=== PATIENT | female | born 1935 | race Caucasian/White ===

== ENCOUNTER 2016-07-12 14:51 | Outpatient (RCR) | payer MEDICARE, OTHER ==
--- OUTSIDE RECORDS SUMMARY | 2016-07-12 14:55 | XMS REPORT | Continuity of Care Document ---
Author Author [facility] Organization [facility] Address Unknown Phone Unavailable Care Team Providers Care Radiology Supervisor Name Role Phone Sondra Madsen PCP [phone] Source Comments Some departments are not documenting in the electronic medical record. If you do not see the information that you expected, contact Release of Information in the Health Information Management department at [phone] for further assistance in locating additional records.[facility] Active Allergies and Adverse Reactions Allergen Noted Date Severity Reactions Comments Bactrim 06/23/2014 MUSCLE PAIN Oxycodone 06/23/2014 SEE COMMENTS Severe confusion/out of control Current Medications Prescription Sig. Disp. Refills Start End Date Status Date lisinopril/hydrochlorothi Take by mouth daily. Active azide (ZESTORETIC) 20/25 tablet (INV) letrozole 2.5 mg Take 2.5 mg by mouth Active tablet daily. INVESTIGATIONAL Carboxymethylcellulose Place 1 Drop into or Active Sodium 0.25 % drop around eye(s) as Needed. polyethylene glycol 3350 Take 17 g by mouth daily. 3 Bottle 3 Active (GLYCOLAX; MIRALAX) 17 15 gram/dose powder senna/docusate Take 1 Tab by mouth twice 60 Tab 1 07/25/19 Active (SENOKOT-S) 8.6/50 mg daily. 15 tablet meloxicam (MOBIC) 15 mg Take by mouth daily. Active tablet other medication 1 Dose daily. Teresa's Active Leg Cramps also( vital yacon For weight loss ACAI CASEY EXTRACT PO Take by mouth. Active Nut.Tx.Impaired Dige Take by mouth. Active Fxn-Fiber (VITAL 1.0 SEEMA) 0.04-1 gram-kcal/mL liqd Active Problems Problem Noted Date S/P left mastectomy 07/24/2014 Breast cancer of lower-outer quadrant of left female breast (HCC) 06/18/2014 Overview: DIAGNOSES: 1. Left, multifocal, hormone +, Her2 negative, breast cancer (ER55%, PR56%, HER2 0, Ki-67 22%), dx 05/2014 -- Grade 2 IDC at 4:00 with associated DCIS, posterior (ER99%, PR0%, Her2 0+, Ki-67 1%) -- Grade 2, IDC (CNBx path) and ILC (surg path) at 4:00 with associated LCIS, anterior (ER100%, PR88%, Her2 2+, FISH 1.6, Ki-67 1%) 2. MyRisk negative 3. Hx of colon cancer PROCEDURE: Left mastectomy/SLNB, 07/24/14 HISTORY: Ms. Hansen is a female who presented [facility] on 06/23/2014 at age 78 for evaluation of left breast cancer. Left breast sono-guided biopsy x 2 on 05/27/14 revealed grade 2, hormone +, Her2 negative, IDC at 4:00, 2 cm FTN and 4:00, 5 cm FTN. She was started on Femara during cardiac work-up prior to surgery. She was cleared for surgery and underwent left total mastectomy/SLNB on 07/24/14. Surgical pathology showed a 1.8 cm, grade 2, invasive lobular carcinoma at the anterior biopsy site with LCIS; at the posterior site, a 1 cm, grade 2, IDC was seen with associated grade 1-2 DCIS. The distance between the tumors was 5 mm. There were 5 negative SLNs. BREAST IMAGING: Mammogram: Bilateral screening mammogram 05/15/14 ([place]) revealed two areas of architectural distortion in the outer left breast. Both areas were seen as far back as 2011. Left diagnostic mammogram 05/19/14 ([place]) revealed a 1.4 cm discrete irregular mass in the outer posterior left breast. There was a second mass posterior and lateral to the first that measure 1.3 cm. Ultrasound: Left breast ultrasound 05/19/14 ([place]) revealed a 1 cm mass at 4:00, 2 cm FTN. There was a 1.1 cm mass at 4:00, 5 cm FTN. The left axilla was unremarkable. PET/CT: PET/CT 06/17/14 ([place], [place]) revealed no definitive evidence of metastasis. Heterogenous and mild hypermetabolism in the thoracic spine and right hilum of uncertain significance. Follow up study recommended. REPRODUCTIVE HEALTH: Age at first Menarche: 13 Age at First Live : 19 Age at Menopause: Surgical menopause at 44 due to menorrhagia, took HRT x 5 years : 6 Para: 6 : None PERTINENT PMH: HTN FAMILY HISTORY: Sister with breast cancer in 60s, 2 maternal aunt with breast cancer in 70s, maternal grandmother with breast cancer PHYSICAL EXAM on PRESENTATION: Left - 3-4 cm hematoma at 4:00. Right - No palpable breast masses. No skin, nipple, or areolar change. No supraclavicular or axillary adenopathy. MEDICAL ONCOLOGY: Dr. Mauro Nunes Neoadjuvant therapy: Femara Present Therapy: Letrozole REFERRED BY: Dr. Mauro Nunes Social History Tobacco Use Types Packs/Day Years Used Date Never Smoker Smokeless Tobacco: Never Used Alcohol Use Drinks/Week oz/Week Comments No once a year Last Filed Vital Signs Vital Sign Reading Time Taken Blood Pressure 100/80 05/04/2015 2:08 PM CDT Pulse 84 05/04/2015 2:08 PM CDT Temperature 36.5 C (97.7 F) 05/04/2015 2:08 PM CDT Respiratory Rate 17 05/04/2015 2:08 PM CDT Height 1.575 m (5' 2") 05/04/2015 2:08 PM CDT Weight 108.138 kg (238 lb 6.4 05/04/2015 2:08 PM CDT oz) Body Mass Index 43.59 05/04/2015 2:08 PM CDT Oxygen Saturation 100% 05/04/2015 2:08 PM CDT Plan of Care Health Maintenance Due Date Last Done Comments Physical (Comprehensive) 1944 Exam Pertussis Vaccine 1948 Tetanus Vaccine 1954 Shingles Vaccine 1997 Osteoporosis Screening 2002 Prevnar/Pneumovax (#1) 2002 Influenza Vaccine 03/17/2016 Results from Last 3 Months Not on file
[2016-07-12 16:47] LABS: BASOPHILS % (AUTO) 0 % (0-10); EOSINOPHILS # (AUTO) 0.2 10^3/uL (0.0-0.3); EOSINOPHILS % (AUTO) 2 % (0-10); LYMPHOCYTES # (AUTO) 2.1 X 10^3 (1.0-4.0); LYMPHOCYTES % (AUTO) 22 % (12-44); MEAN CORPUSCULAR HEMOGLOBIN 29 PG (25-34); MEAN CORPUSCULAR HGB CONC 34 G/DL (32-36); MEAN CORPUSCULAR VOLUME 87 FL (80-99); MEAN PLATELET VOLUME 10.1 FL (7.4-10.4); MONOCYTES # (AUTO) 0.7 X 10^3 (0.0-1.0); MONOCYTES % (AUTO) 7 % (0-12); NEUTROPHILS # (AUTO) 6.7 X 10^3 (1.8-7.8); NEUTROPHILS % (AUTO) 69 % (42-75); PLATELET COUNT 288 10^3/uL (130-400); RED BLOOD COUNT 4.85 10^6/uL (4.35-5.85); RED CELL DISTRIBUTION WIDTH 14.3 % (10.0-14.5); WHITE BLOOD COUNT 9.8 10^3/uL (4.3-11.0)
[2016-07-12 17:05] LABS: ALBUMIN 4.4 G/DL (3.2-4.5); BILIRUBIN,TOTAL 0.2 MG/DL (0.1-1.0); CALCIUM 9.3 MG/DL (8.5-10.1); CREATININE SERUM 0.93 MG/DL (0.60-1.30); POTASSIUM 3.9 MMOL/L (3.6-5.0); TOTAL PROTEIN 7.2 G/DL (6.4-8.2)
== END 2016-10-10 | disposition home or self-care (01) ==
LOC: ONC 14:51
PROVIDERS: ATTEND Internal Medicine Hematology & Oncology
DX: C50.512 Malignant neoplasm of lower-outer quadrant of left female breast (principal); I89.0 Lymphedema, not elsewhere classified; R42 Dizziness and giddiness; R41.82 Altered mental status, unspecified; R29.898 Other symptoms and signs involving the musculoskeletal system; Z17.0 Estrogen receptor positive status [ER+]; Z79.811 Long term (current) use of aromatase inhibitors; Z90.12 Acquired absence of left breast and nipple; Z79.899 Other long term (current) drug therapy
CPT/HCPCS: 36415; 80053; 85025; 99213

== ENCOUNTER → 2016-08-09 | Outpatient (CLI) | payer MEDICARE, OTHER ==
--- OUTSIDE RECORDS SUMMARY | 2016-08-09 11:22 | XMS REPORT | Continuity of Care Document ---
Author Author [facility] Organization [facility] Address Unknown Phone Unavailable Care Team Providers Care Health Services Rn Name Role Phone Sondra Madsen PCP [phone] Source Comments Some departments are not documenting in the electronic medical record. If you do not see the information that you expected, contact Release of Information in the Health Information Management department at [phone] for further assistance in locating additional records.[facility] Active Allergies and Adverse Reactions Allergen Noted [...] BREAST IMAGING: Mammogram: Bilateral screening mammogram 05/15/14 ([place]) revealed two areas of architectural distortion in the outer left breast. Both areas were seen as far back as 2011. Left diagnostic mammogram 05/19/14 ([place]) revealed a 1.4 cm discrete irregular mass in the outer posterior left breast. There was a second mass posterior and lateral to the first that measure 1.3 cm. Ultrasound: Left breast ultrasound 05/19/14 ([place]) revealed a 1 cm mass at 4:00, 2 cm FTN. There was a 1.1 cm mass at 4:00, 5 cm FTN. The left axilla was unremarkable. PET/CT: PET/CT 06/17/14 ([place], [place]) revealed no definitive evidence of metastasis. [...]
== END ==
LOC: FS 11:19
PROVIDERS: ATTEND Internal Medicine Hematology & Oncology
DX: C50.512 Malignant neoplasm of lower-outer quadrant of left female breast (principal); I89.0 Lymphedema, not elsewhere classified; R42 Dizziness and giddiness; R41.82 Altered mental status, unspecified; R29.898 Other symptoms and signs involving the musculoskeletal system; Z17.0 Estrogen receptor positive status [ER+]; Z79.811 Long term (current) use of aromatase inhibitors; Z90.12 Acquired absence of left breast and nipple; Z79.899 Other long term (current) drug therapy
CPT/HCPCS: 99213

== ENCOUNTER → 2016-11-08 | Outpatient (CLI) | payer MEDICARE, OTHER | LOC: FS 11:29 | PROVIDERS: ATTEND Internal Medicine Hematology & Oncology | DX: C50.512 Malignant neoplasm of lower-outer quadrant of left female breast (principal); I89.0 Lymphedema, not elsewhere classified; R42 Dizziness and giddiness; R41.82 Altered mental status, unspecified; R29.898 Other symptoms and signs involving the musculoskeletal system; Z17.0 Estrogen receptor positive status [ER+]; Z79.811 Long term (current) use of aromatase inhibitors; Z90.12 Acquired absence of left breast and nipple; Z79.899 Other long term (current) drug therapy | CPT/HCPCS: 99213 ==

== ENCOUNTER → 2017-02-07 | Outpatient (CLI) | payer MEDICARE, OTHER ==
[~2017-02-07] MED LIST: ACET-77 PO; ALPR0.25 PO; ASPI-586 PO; CATHETER FLUSH 10 ML SYR IV PRN; DOCU-143 PO; DOXY100C2 PO; DVL125C PO; ENOX40DI8 SC; FENT1PAT58 TD; FENT1PAT9 TD; FLUC100T6 PO; HALO1TAB PO; HALO5AMP2 IM; HYDR-3816 PO; HYDR12.5 PO; HYDR12.56 PO; IOHEXOL 350 MG/ML 100 ML (OMNIPAQUE 350) VIAL IV ONE; LACT100C2 PO; LACT20SO2 PO; LETR2.5T5 PO; MAGN200T PO; NS 100 ML (IVPB) BAG IV ONE; OMEP20TA7 PO; ONDA4TAB11 PO; ONDN4T PO; POLY17PO6 PO; POTA10TA36 PO; TRAM50TA2 PO
--- NOTE | 2017-02-07 13:29 | Diagnostic Imaging Report ---
PROCEDURE: CT head with and without contrast. TECHNIQUE: Multiple contiguous axial images were obtained through the brain before and after the administration of intravenous contrast. INDICATION: Fall. Confusion. Findings: The unenhanced phase demonstrates no intracranial hemorrhage, edema or mass effect. There is periventricular and deep white matter hypodensities suggestive of chronic microvascular ischemic changes. Mild prominence of the CSF spaces is seen compatible with the age-related slight brain atrophy. There is no extra-axial fluid collection seen. No enhancing mass is noted. The calvarium, the paranasal sinuses and orbits visualized portions appear unremarkable. IMPRESSION: White matter findings are suggestive of chronic microvascular ischemic changes. No enhancing mass. Dictated by: Dictated on workstation # [id number]
--- NOTE | 2017-02-07 16:07 | Diagnostic Imaging Report ---
Whole body bone scan. Technique: After the intravenous administration of 27 mCi of Technetium 99m MDP, whole body delayed phase bone scan images were obtained with lateral views of the head and neck and the chest regions. Indication: Right flank mass. History of breast cancer. Findings: There is moderate increased hypermetabolism seen in the T12 vertebral body. There is mild degenerative related activity seen within the rest of the spine and there is also mild degenerative related activity in other joints seen. There is urinary excretion of the tracer seen. There is photopenia in both knees noted suggestive of knee replacement. IMPRESSION: Moderate increased hypermetabolism seen in T12 vertebral body. Based on concurrent CT scan, this appears to be related to compression fractures with possible underlying mass. Further evaluation with MRI is suggested. Dictated by: Dictated on workstation # [id number]
--- NOTE | 2017-02-07 16:41 | Diagnostic Imaging Report ---
PROCEDURE: CT chest and abdomen with contrast. TECHNIQUE: Multiple contiguous axial images were obtained through the chest and abdomen after the administration of intravenous contrast. INDICATION: Right flank mass. Patient has been falling. History of breast cancer. 100 mL of Omnipaque 350 is administered intravenously. FINDINGS: CT CHEST: There is prior left mastectomy seen with surgical clips along the mastectomy bed and the left axilla. No axillary lymphadenopathy is seen in this time. No mediastinal lymphadenopathy. No hilar lymphadenopathy. Calcified granuloma in the left hilum is seen however. The thoracic aorta demonstrate normal enhancement. There is no aneurysm or dissection. The heart size is normal. No pericardial or pleural effusion. The lungs demonstrate no significant consolidation. There is a small calcified granuloma in the left lung base. There is a small hiatal hernia. The osseous structures demonstrate a mild compression fracture of T12 vertebral body associated with suspected underlying lytic lesion. At this level, there is calcification seen projecting over the spine at this level concerning for retropulsion fracture fragment resulting in spinal canal stenosis. Further evaluation with MRI with and without contrast is recommended. CT ABDOMEN: The liver inferior tip is below the field of view. Otherwise the liver parenchyma appears unremarkable. No focal lesion seen. The spleen, the pancreas, and adrenal glands appear unremarkable. The kidneys have symmetric enhancement and contrast excretion. There is no hydronephrosis. There is a simple cyst measuring 1.5 cm seen in the mid left kidney. The abdominal aorta is normal in caliber. No paraaortic significantly enlarged lymph nodes seen. No fluid collection or free fluid is seen in the abdomen. The osseous structures demonstrate prominent degenerative changes of the lumbar spine and mild right convexity scoliosis with vacuum phenomenon. There are calcifications seen in the psoas muscles bilaterally without associated significant fullness or mass. This could be sequela of prior injury or infection. IMPRESSION: 1. A 20% compression fracture of T12 vertebral body with concern for an underlying lytic lesion. There is also suggestion of retropulsion of ossific fragment into the spinal canal at this level causing spinal canal stenosis. Further evaluation with MRI is recommended. 2. Small hiatal hernia. CT ABDOMEN: No significant abnormality. If the area of right flank fullness extends to the right lower quadrant, then consider CT scan of the pelvis. Findings were discussed with Dr. Kaba. Dictated by: Dictated on workstation # [id number]
== END ==
LOC: RAD 11:58
PROVIDERS: ATTEND Internal Medicine Hematology & Oncology
DX: M48.54XA Collapsed vertebra, not elsewhere classified, thoracic region, initial encounter for fracture (principal); K44.9 Diaphragmatic hernia without obstruction or gangrene; R41.0 Disorientation, unspecified; R10.31 Right lower quadrant pain
CPT/HCPCS: 70470; 71260; 74160; 78306

== ENCOUNTER 2017-02-13 13:27 | Inpatient (IN) | payer MEDICARE, OTHER ==
[~2017-02-13] VITALS: Ht 162.6 cm; Wt 97.6 kg
[2017-02-13 16:50] VITALS: BP 194/85
[2017-02-13 18:11] VITALS: BP 171/79
[2017-02-13] MEDS ORDERED: DOCU-143 PO (19:17)
[2017-02-13] MEDS ORDERED: HYDR12.56 PO (19:17)
[2017-02-13] MEDS ORDERED: LETR2.5T5 PO (19:17)
[2017-02-13] MEDS ORDERED: ALPR0.25 PO (19:17)
[2017-02-13] MEDS ORDERED: ONDN4T PO (19:17)
[2017-02-13] MEDS ORDERED: POLY17PO6 PO (19:17)
[2017-02-13] MEDS ORDERED: OMEP20TA7 PO (19:17)
[2017-02-13] MEDS ORDERED: ASPI-586 PO (19:17)
[2017-02-13] MEDS ORDERED: TRAM50TA2 PO (19:18)
[2017-02-13] MEDS ORDERED: HYDR-3816 PO (19:18)
[2017-02-13] MEDS: NS IV 1000 ML 1,000 ML IV SCH (19:57)
[2017-02-13 20:00] VITALS: BP 173/71
[2017-02-13] MEDS ORDERED: HYDROmorphone (DILAUDID) 2 MG/ML VIAL IVP PRN (20:15)
[2017-02-14] VITALS: BP 144/60
[2017-02-14 04:00] VITALS: BP 109/59
[2017-02-14] MEDS: NS IV 1000 ML 1,000 ML IV SCH ×2 (06:13→15:35)
[2017-02-14 08:30] VITALS: BP 171/91
[2017-02-14] MEDS ORDERED: ONDA4TAB11 PO (10:25)
[2017-02-14] MEDS ORDERED: HYDR12.5 PO (10:25)
[2017-02-14] MEDS ORDERED: ACET-77 PO (10:25)
[2017-02-14 12:00] VITALS: BP 166/80
[2017-02-14] MEDS ORDERED: ONDANSETRON 4 MG (ZOFRAN) ORAL DISSOLVE TAB PO PRN (14:00)
[2017-02-14] MEDS ORDERED: POLYETHYLENE GLYCOL 17 GM (MIRALAX) PACK PO PRN (14:00)
[2017-02-14] MEDS ORDERED: ACETAMINOPHEN 500 MG TAB (TYLENOL) PO PRN (14:00)
--- NOTE | 2017-02-14 14:24 | History & Physical-Hospitalist ---
HPI History of Present Illness: HPI/Chief Complaint The patient is a 81-year-old white female referred to the hospitalist service by a nurse practitioner in the [facility] emergency room. She reported that the patient had a certain degree of dementia and had recently been placed in a [place] detention. She had a previous history of urinary tract infections and appeared to have one at their evaluation. She had been seeing Dr. Nunes from the cancer clinic relative to a breast cancer with previous left mastectomy. She had recently been complaining of pain in the back. After considerable searching of other resources I was able to find a CT chest and abdomen report from 02/07 which showed a 20 percent compression fracture at the level of T12 with concern for a lytic lesion as from breast cancer. At this point information seemed to pour in. She was to have had an appointment with Dr. Philip Sandhu who is a spine surgeon at the [address] in [place]. The consideration was to be for kyphoplasty and biopsy. The CT scan report voiced concern over the possibility of retropulsion of a fragment into the spinal canal and suggested MRI with and without contrast. These findings were discussed with the patient's daughter by telephone. She voiced concern over the pain her mother was suffering but also the recent at rather marked increase in her memory and confusion problems Date Seen 02/14/17 Time Seen by Provider: 14:19 Attending Physician David Maldonado MD PCP Madhav Ty MD Referring Physician Date of Admission Feb 13, 2017 at 16:59 Home Medications & Allergies Home Medications Reviewed patient Home Medication Reconciliation Form Allergies Allergies Coded Allergies ciprofloxacin (Unverified Allergy, Unknown, 02/13/17) oxycodone (Unverified Allergy, Unknown, 02/13/17) sulfamethoxazole (Unverified Allergy, Unknown, 02/13/17) trimethoprim (Unverified Allergy, Unknown, 02/13/17) Past Dwpobvq-Yniouj-Lhoqvi Hx Patient Social History Alcohol Use: Denies Use Recreational Drug Use: No Smoking Status: Never a Smoker Physical Abuse Screen: No Sexual Abuse: No Recent Foreign Travel: No Contact w/other who traveled: No Recent Hopitalizations: Yes Recent Infectious Disease Expo: No Seasonal Allergies Seasonal Allergies: No Gastrointestinal Gastrointestinal Disorders: Chronic Constipation Cancer Cancer: Breast Blood Transfusions Adverse Reaction to a Blood Tr: No Review of Systems ROS-Unable to Obtain: too confused Constitutional: see HPI Physical Exam Physical Exam Vital Signs Vital Sign - Last 12Hours 02/13/17 16:50 Temp 98.7 Pulse 85 Resp 20 B/P (MAP) 194/85 Pulse Ox 96 O2 Delivery Room Air Capillary Refill : General Appearance: Other (a very confused and somewhat anxious female who appears her stated age) Eyes: Bilateral Eye Normal Inspection HEENT: Normal ENT Inspection Neck: Normal Inspection Respiratory: Chest Non Tender, Lungs Clear, Normal Breath Sounds, No Accessory Muscle Use, No Respiratory Distress, Other (left mastectomy) Cardiovascular: Regular Rate, Rhythm, No Edema, No Gallop, No JVD, No Murmur, Normal Peripheral Pulses Gastrointestinal: Normal Bowel Sounds, No Organomegaly, No Pulsatile Mass, Non Tender, Soft Extremity: Normal Capillary Refill, Normal Inspection, Normal Range of Motion, Non Tender, No Calf Tenderness, No Pedal Edema Neurologic/Psychiatric: Alert Skin: Normal Color, Warm/Dry Lymphatic: No Adenopathy Assessment/Plan Admission Diagnosis Urinary tract infection. 2.T12 compression fracture rule out metastasis. 3.previous left mastectomy for carcinoma. 4.dementia with increasing confusion. Assessment and Plan Continue Rocephin until culture report is available. [facility]. Consult oncologist. Adjust pain medications. Clinical Quality Measures DVT/VTE Risk/Contraindication: Risk Factor Score Per Nursin RFS Level Per Nursing on Admit: 4+=Very High DAVID MALDONADO MD Feb 14, 2017 14:24
[2017-02-14] MEDS: cefTRIAXone INJECTION 1,000 MG in NS (IVPB) 50 ML IV SCH (14:59)
[2017-02-14] MEDS: fentaNYL PATCH 25 MCG (DURAGESIC) TD SCH (15:00)
[2017-02-14 15:49] LABS: CREATININE SERUM 0.69 MG/DL (0.60-1.30); GFR ESTIMATED > 60
[2017-02-14 16:25] VITALS: BP 156/68
[2017-02-14 21:20] VITALS: BP 142/77
[2017-02-15 00:35] VITALS: BP 170/74
[2017-02-15] MEDS: NS IV 1000 ML 1,000 ML IV SCH ×2 (01:30→04:51)
[2017-02-15 03:35] VITALS: BP 163/67
[2017-02-15 05:27] LABS: BASOPHILS % (AUTO) 0 % (0-10); EOSINOPHILS # (AUTO) 0.3 10^3/uL (0.0-0.3); EOSINOPHILS % (AUTO) 4 % (0-10); LYMPHOCYTES # (AUTO) 1.6 X 10^3 (1.0-4.0); LYMPHOCYTES % (AUTO) 18 % (12-44); MEAN CORPUSCULAR HEMOGLOBIN 28 PG (25-34); MEAN CORPUSCULAR HGB CONC 33 G/DL (32-36); MEAN CORPUSCULAR VOLUME 85 FL (80-99); MEAN PLATELET VOLUME 8.2 FL (7.4-10.4); MONOCYTES % (AUTO) 11 % (0-12); NEUTROPHILS % (AUTO) 68 % (42-75); PLATELET COUNT 361 10^3/uL (130-400); RED BLOOD COUNT 3.79 10^6/uL (4.35-5.85); WHITE BLOOD COUNT 8.9 10^3/uL (4.3-11.0)
[2017-02-15 05:56] LABS: ALANINE AMINOTRANSFERASE 44 U/L (0-55); ALBUMIN 3.2 GM/DL (3.2-4.5); ANION GAP 13 MMOL/L (5-14); ASPARTATE AMINO TRANSFERASE 17 U/L (5-34); BILIRUBIN,TOTAL 0.5 MG/DL (0.1-1.0); BLOOD UREA NITROGEN 9 MG/DL (7-18); BUN/CREATININE RATIO 14; CALCIUM 8.5 MG/DL (8.5-10.1); CARBON DIOXIDE 26 MMOL/L (21-32); CHLORIDE 96 MMOL/L (98-107); CREATININE SERUM 0.63 MG/DL (0.60-1.30); GFR ESTIMATED > 60; GLUCOSE 96 MG/DL (70-105); SODIUM 135 MMOL/L (135-145); TOTAL PROTEIN 5.8 GM/DL (6.4-8.2)
[2017-02-15 06:07] LABS: POTASSIUM 2.4 MMOL/L (3.6-5.0)
[2017-02-15] MEDS: NS W/KCL 40 MEQ/L 1,000 ML IV SCH ×2 (06:24→16:15)
[2017-02-15] MEDS: PANTOPRAZOLE 20 MG TABLET (PROTONIX) PO SCH (06:26)
[2017-02-15] MEDS: KCL 20 MEQ TAB (K-DUR) PO SCH ×2 (06:52→16:59)
[2017-02-15 08:09] VITALS: BP 136/63
[2017-02-15] MEDS ORDERED: ENOXAPARIN 60 MG/0.6 ML (LOVENOX) SYR SC ONE (09:00)
[2017-02-15] MEDS ORDERED: ASPIRIN E.C. 81 MG (ECOTRIN) TAB PO SCH (09:00)
[2017-02-15] MEDS ORDERED: cefTRIAXone INJECTION 1,000 MG in NS (IVPB) 50 ML IV SCH (09:00)
[2017-02-15] MEDS: cefTRIAXone INJECTION 1,000 MG in NS (IVPB) 50 ML IV SCH (10:05)
[2017-02-15] MEDS: DOCUSATE SODIUM 100 MG (COLACE) CAP PO SCH (10:09)
--- NOTE | 2017-02-15 10:49 | Progress Note-Hospitalist ---
Progress Note HPI/CC on Admission The patient is a 81-year-old white female referred to the hospitalist service by a nurse practitioner in the [facility] emergency room. She reported that the patient had a certain degree of dementia and had recently been placed in a [place] shelter. She had a previous history of urinary tract infections and appeared to have one at their evaluation. She had been seeing Dr. Nunes from the cancer clinic relative to a breast cancer with previous left mastectomy. She had recently been complaining of pain in the back. After considerable searching of other resources I was able to find a CT chest and abdomen report from 02/07 which showed a 20 percent compression fracture at the level of T12 with concern for a lytic lesion as from breast cancer. At this point information seemed to pour in. She was to have had an appointment with Dr. Philip Sandhu who is a spine surgeon at the [address] in [place]. The consideration was to be for kyphoplasty and biopsy. The CT scan report voiced concern over the possibility of retropulsion of a fragment into the spinal canal and suggested MRI with and without contrast. These findings were discussed with the patient's daughter by telephone. She voiced concern over the pain her mother was suffering but also the recent at rather marked increase in her memory and confusion problems Progress Notes/Assess & Plan Date Seen 02/15/17 Time Seen by Provider: 10:15 Diagonsis/Assessment & Plan Chart Review: Urine cx to be obtained from [facility]. Covered with abx empirically Vitals stable CBC normal except Hgb 10.6 and K+ 2.4 and receiving supplement needle loom operator: Pt has had a BM K+ addressed by Dr. Gould Lovenox 50 was only administered once. Will do SCDs to tide pt over since she very well may need the kyphoplasty with bone biopsy today if can be arranged Pt is not moving much due to back pain Patient Interview: Pt denies meeting Dr. Gould yesterday Dr. Sandhu and I will have a plan for him to come see her at [facility] and likely perform procedure Pt confirms back pain Physical exam stable. Rolling over was difficult for the pt. Lungs sound perfect AFVSS, Pleasant, O x ~1-2 RRR, CTAB Difficult moving due to pain No edema Assessment: Confusion with UTI and presumed breast cancer mets to spine T12 in need of kyphoplasty w/bone biopsy Breast cancer on treatment Dementia HTN GERD Plan: SCDs and hold Lovenox in case kyphoplasty with bone biopsy can be done in the next [address] Sandhu regarding procedure plan Await [facility]x from [facility] and continue abx empirically Dementia precludes anything other than a poor prognosis Scribed by Ana Pena under the direct supervision of Dr. Mchugh. KIA MCHUGH DO Feb 15, 2017 10:49
[2017-02-15 12:00] VITALS: BP 145/65
--- NOTE | 2017-02-15 14:50 | Physical Therapy Progress Note ---
Therapy Progress Note Evaluation order received, chart reviewed. Patient is not available at this time. MRI is getting her onto a plinth and they state that they will have her for the next 1.5-2 hours. Will attempt evaluation again in the morning. JIL BILLINGS PT Feb 15, 2017 14:50
[2017-02-15] MEDS ORDERED: GADOBUTROL 10 MMOL/10 ML (GADAVIST) VIAL IV ONE (15:15)
--- NOTE | 2017-02-15 15:21 | Occ Therapy Progress Note ---
Therapy Progress Note Order received for OT eval and treat. Chart review completed. Spoke with RN at 1455. RN states pt currently at MRI and will be having a procedure later today. Will attempt to complete evaluation 02/16/17. SANDY FIORE OT Feb 15, 2017 15:21
[2017-02-15 16:00] VITALS: BP 181/81
--- NOTE | 2017-02-15 16:41 | Diagnostic Imaging Report ---
TECHNIQUE: A multiplanar/multisequence MRI of the thoracic spine was performed without and with intravenous contrast. INDICATION: Compression fracture of the T12 vertebral body with a history of breast cancer. FINDINGS: The alignment of the thoracic spine is satisfactory. There is mild vertebral body height loss at the T12 level. There is bone marrow edema involving T12 and L1 and an abnormal fluid signal at the disc at the T12-L1 level. This has prominent surrounding fluid extending into the adjacent anterior epidural space extending lower into the lumbar spine as well and with associated abnormal signal and enhancement in the psoas muscles with small fluid collections within them. 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 An abscess in the epidural space with a phlegmon component is seen. At the mid T12 level, there is severe spinal canal stenosis decreasing the AP dimension of the canal to 5 mm. There is mild compression of the distal aspect of the cord with no cord signal abnormality. The other levels demonstrate no significant disc herniations except at T7-T8 without significant spinal canal stenosis or cord compression. There is a lesion, probably a vertebral hemangioma, in the T9 vertebral body measuring 1.7 cm in size. 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 This results in severe spinal canal stenosis and involves T12, L1, and extends to the mid lumbar spine. This could relate to a bacterial infection or an atypical infection with TB included in the differential diagnosis. The soft tissue infection also extends to the paraspinal soft tissues with small bilateral psoas abscess seen. There is mild compression of the cauda equina. The findings were discussed with Dr. Gould by Dr. Solano at the time of dictation. Dictated by: Dictated on workstation # [id number]
--- NOTE | 2017-02-15 17:18 | Diagnostic Imaging Report ---
PROCEDURE: MRI lumbar spine with and without contrast. TECHNIQUE: Multiplanar, multisequence MRI of the lumbar spine was performed with and without contrast. INDICATION: Back and hip pain. Confusion. The patient had fallen down three months ago. 10 mL of Gadavist is administered intravenously. FINDINGS: There is a 20% compression fracture of T12 vertebral body. Significant marrow edema around the T12 and L1 levels with disc edema and surrounding fluid collection is highly suggestive of discitis osteomyelitis. This is further confirmed with intense enhancement. The anterior epidural collection results in compression of the thecal sac and extends from upper T12 to upper L4 levels with variable thickness of this collection up to 7 mm in thickness. It is associated with severe spinal canal stenosis at these levels, worst at mid to lower L3 level where it reduces the AP dimension of the spinal canal to 4 mm. There is mild compression of the cauda equina and the conus medullaris at these levels. Other vertebral bodies demonstrate maintained height. There is a mildly prominent bone marrow edema in L1 vertebral body without significant vertebral body height loss. This could relate to contusion. There is significant fluid signal associated with the disc at the T12/L1, L2/3, L3/4, and L4/5 levels. There is a disc bulge seen at each level in the lumbar spine. At L3/4, there is a diffuse disc bulge with moderate spinal canal stenosis reducing the AP dimension of the canal to 8 mm. It is worse above the level of the disc where the anterior epidural collection is prominent. There is moderate foraminal stenosis on the left and no foraminal stenosis on the right side. L4/5: There is a diffuse disc bulge and the bilateral izxjbczk-qt-qsvccw facet arthropathy. There is kkhpopfg-ut-psswsy central canal stenosis reducing the AP dimension of the canal to 4.8 mm and bilateral severe lateral recess stenosis, worse on the right side. The foramina demonstrate no significant narrowing of the left and fkskkcee-ov-oomokh narrowing on the right. L5/S1: There is diffuse disc bulge and severe facet arthropathy. There is central canal stenosis of moderate degree reducing the AP dimension of the canal to 7 mm. There is bilateral jbhcdffp-qu-eficpt stenosis of the lateral recess bilaterally, mainly secondary to prominent ligamentous hypertrophy. The neural foramina demonstrate no significant stenosis. There is mild atrophy of the paraspinal muscles. Postcontrast images demonstrate intense enhancement in T12 and also significant enhancement in the L1 vertebra with significant peripheral enhancement around the fluid collections in the anterior epidural space with a component of phlegmon at the T12 level and central fluid compatible with an epidural abscess. There is also significant enhancement in the soft tissues with small psoas abscesses and some enhancement suggestive of inflammation extension into the paraspinal muscles, especially on the right side. IMPRESSION: 1. There is 20% compression fracture of T12 level, probably a pathologic fracture secondary to infection. The marrow edema and abnormal signal at the disc is highly suggestive of discitis osteomyelitis which could be bacterial or from atypical infection such as TB. 2. Anterior epidural fluid collection from T12 to upper L4 level with features suggestive of epidural abscess with multilevel severe spinal canal stenosis as a result. There is also fluid signal which appears to extend from the T12/L1 disc into the psoas muscles forming small collections along the length of the psoas muscle bilaterally. These could represent small psoas abscesses. Findings were discussed with Dr. Gould by Dr. Solano at the time of dictation. Dictated by: Dictated on workstation # [id number]
[2017-02-15] MEDS ORDERED: LACTATED RINGERS 1,000 ML IV ONE ×5 (17:32→21:33)
[2017-02-15] MEDS ORDERED: SEVOFLURANE (ULTANE) 15 ML INHAL SOLN ONE ×10 (17:32→21:15)
[2017-02-15] MEDS ORDERED: proPOfol 200 MG/20 ML (DIPRIVAN) VIAL IV ONE ×3 (17:32→21:06)
[2017-02-15] MEDS ORDERED: LIDOCAINE PF 2% 5 ML (XYLOCAINE) VIAL ONE ×2 (17:32→21:18)
[2017-02-15] MEDS ORDERED: fentaNYL INJECTION 100 MCG/2 ML AMP ONE ×2 (17:33→20:54)
[2017-02-15] MEDS ORDERED: SUCCINYLCHOLINE INJ 100 MG/5 ML SYR ONE ×2 (17:33→21:32)
--- NOTE | 2017-02-15 18:31 | Consultation ---
History of Present Illness History of Present Illness Patient Consulted On(jocelyn/time) 02/15/17 18:26 Date Seen by Provider: Feb 15, 2017 Time Seen by Provider: 18:26 Reason for Visit: epidural abscess History of Present Illness Harmony is a 81 yr old WF that has an acute L1 compression fracture that I was initially consulted on. Subsequent MRI of her T and L spine demonstrate discitis at T12-L1 with anterior epidural abcess down to L4. There is severe stenosis as a result of this. She denies recent fevers or chills. Per her family she does have new onset bowel bladder changes. She was ambulatory up until 4 days ago. she has severe weakness and pain in her buttocks and legs, R> L. she is unable to raise her legs against gravity. Allergies and Home Medications Allergies Coded Allergies: ciprofloxacin (Unverified Allergy, Unknown, 02/13/17) oxycodone (Unverified Allergy, Unknown, 02/13/17) sulfamethoxazole (Unverified Allergy, Unknown, 02/13/17) trimethoprim (Unverified Allergy, Unknown, 02/13/17) Home Medications Acetaminophen 500 Mg Tablet, 500-1,000 MG PO Q4H PRN for PAIN-MILD, (Reported) Alprazolam 0.25 Mg Tablet, 0.25 MG PO TID PRN for ANXIETY, (Reported) Aspirin 81 Mg Tablet.dr, 81 MG PO DAILY, (Reported) Docusate Sodium 100 Mg Capsule, 100 MG PO DAILY, (Reported) Hydrochlorothiazide 12.5 Mg Capsule, 12.5 MG PO DAILY, (Reported) Hydrocodone/Acetaminophen 1 Each Tablet, 1 TAB PO Q8H PRN for PAIN-MODERATE, ( Reported) Letrozole 2.5 Mg Tablet, 2.5 MG PO DAILY, (Reported) Omeprazole 20 Mg Tablet.dr, 20 MG PO DAILY, (Reported) Ondansetron 4 Mg Tab.rapdis, 4 MG PO Q6H PRN for NAUSEA/VOMITING-1ST LINE, ( Reported) Polyethylene Glycol 3350 17 Gm Powd.pack, 17 GM PO DAILY PRN for CONSTIPATION- 2ND LINE, (Reported) Tramadol HCl 50 Mg Tablet, 100 MG PO Q8H, (Reported) TAKES 2 (50MG) TABLETS Past Chmcuvj-Yjxxbq-Rwtegf Hx Patient Social History Alcohol Use: Denies Use Recreational Drug Use: No Smoking Status: Never a Smoker Recent Foreign Travel: No Contact w/Someone Who Travel: No Recent Infectious Disease Expo: No Recent Hopitalizations: Yes Physical Abuse Screen: No Sexual Abuse: No Seasonal Allergies Seasonal Allergies: No Gastrointestinal Gastrointestinal Disorders: Chronic Constipation Cancer Cancer: Breast Blood Transfusions Adverse Reaction to a Blood Tr: No Review of Systems-General Constitutional: no symptoms reported Physical Exam-General Problems Physical Exam Vital Signs Vital Sign - Last 12Hours 02/13/17 16:50 Temp 98.7 Pulse 85 Resp 20 B/P (MAP) 194/85 Pulse Ox 96 O2 Delivery Room Air Capillary Refill : Less Than 3 Seconds Extremities: other (2/5 johan hip flexors, right quad 3/5, 5/5 johan dorsiflexion, diminished sensation multiple dermatoes johan LE, 2/4 DP, PT) Assessment/Plan Assessment/Plan Admission Diagnosis/Plan ASSESSMENT: epidural abscess T12-L4 with severe neural compromise critical lumbar stenosis T12-L1 discitis L1 compression fracture PLAN: emergent T12-L4 laminectomy with evacuation of epidural abscess with acquisition of cultures will follow cultures and jack abx accordingly DVT prophy: SCDs Clinical Quality Measures DVT/VTE Risk/Contraindication: Risk Factor Score Per Nursin RFS Level Per Nursing on Admit: 4+=Very High Contraindications-Pharm: Other *list below* Other: aurgery planned CHRISTIAN AGUILAR DO Feb 15, 2017 18:31
--- NOTE | 2017-02-15 18:32 | Progress Note-Pre Operative ---
Pre-Operative Progress Note H&P Reviewed The H&P was reviewed, patient examined and no changes noted. Date Seen by Provider: Feb 15, 2017 Time Seen by Provider: 18:31 Date H&P Reviewed: Feb 15, 2017 Time H&P Reviewed: 18:31 Pre-Operative Diagnosis: epidural abscess CHRISTIAN AGUILAR DO Feb 15, 2017 18:32
[2017-02-15] MEDS ORDERED: NEO/POLY/BAC (NEOSPORIN) OINT 15 GM TUBE ONE (18:41)
[2017-02-15] MEDS ORDERED: GENTAMICIN 40 MG/ML 2 ML INJ SDV ONE ×2 (18:41→20:24)
[2017-02-15] MEDS ORDERED: BUP/EPI 0.5% 1:200,000 (MARCAINE) 10ML VIAL IJ ONE (18:42)
[2017-02-15] MEDS ORDERED: VANCOMYCIN 1000 MG/VIAL ONE (18:42)
[2017-02-15] MEDS: LACTATED RINGERS 1,000 ML IV PRN ×2 (18:45→20:50)
[2017-02-15] MEDS ORDERED: ceFAZolin 1,000 MG (ANCEF) VIAL ONE (18:52)
[2017-02-15] MEDS ORDERED: DEXMEDETOMIDINE 200 MCG/2 ML (PRECEDEX) VIAL IV ONE (19:19)
[2017-02-15] MEDS ORDERED: ONDANSETRON 4 MG/2 ML (SDV) Z0FRAN ONE ×2 (19:27→21:14)
[2017-02-15] MEDS ORDERED: MEPERIDINE (DEMEROL) INJ 50 MG/ML IVP PRN (20:00)
[2017-02-15] MEDS ORDERED: ONDANSETRON 4 MG/2 ML (SDV) Z0FRAN IVP PRN (20:00)
[2017-02-15] MEDS ORDERED: morphine INJ 10 MG/ML 1ML (SYR OR VIAL) IVP PRN (20:00)
[2017-02-15] MEDS ORDERED: PROMETHAZINE INJ 25 MG/ML (PHENERGAN) AMP IVP PRN (20:00)
[2017-02-15] MEDS ORDERED: MIDAZOLAM 2 MG/2 ML (VERSED) VIAL ONE (20:44)
[2017-02-15] MEDS ORDERED: VANCOMYCIN INJECTION 0.1 MG in NS (IVPB) 250 ML IV SCH (21:15)
[2017-02-15] MEDS ORDERED: OXYTOCIN/NORMAL SALINE 1,000 ML IV ONE (21:32)
--- NOTE | 2017-02-15 21:34 | Diagnostic Imaging Report ---
INDICATION: T12-L4 laminectomy Limited intraoperative views were obtained during laminectomy in surgery. 20 seconds of fluoroscopy time were used. The thoracolumbar vertebrae appear in anatomic alignment. IMPRESSION: Limited views of the thoracolumbar spine obtained in surgery during laminectomy. 20 seconds of fluoroscopy time was used. Dictated by: Dictated on workstation # [id number]
[2017-02-15 22:20] VITALS: BP 140/69
[2017-02-16] VITALS: BP 136/63
[2017-02-16] MEDS: NS W/KCL 40 MEQ/L 1,000 ML IV SCH ×2 (02:24→13:25)
[2017-02-16 04:00] VITALS: BP 159/76
[2017-02-16] MEDS: PANTOPRAZOLE 20 MG TABLET (PROTONIX) PO SCH (06:15)
[2017-02-16] MEDS: KCL 20 MEQ TAB (K-DUR) PO SCH ×2 (06:15→16:35)
[2017-02-16] MEDS: fentaNYL INJECTION 100 MCG/2 ML AMP IVP PRN ×2 (06:58→08:28)
[2017-02-16 07:25] VITALS: BP 156/64
[2017-02-16] MEDS: cefTRIAXone INJECTION 1,000 MG in NS (IVPB) 50 ML IV SCH (08:28)
[2017-02-16] MEDS: DOCUSATE SODIUM 100 MG (COLACE) CAP PO SCH (08:28)
[2017-02-16] MEDS ORDERED: VANCOMYCIN INJECTION 500 MG in NS (IVPB) 100 ML IV SCH (09:00)
[2017-02-16 09:24] LABS: BASOPHILS % (AUTO) 0 % (0-10); EOSINOPHILS % (AUTO) 0 % (0-10); LYMPHOCYTES % (AUTO) 8 % (12-44); MEAN CORPUSCULAR HEMOGLOBIN 28 PG (25-34); MEAN CORPUSCULAR HGB CONC 33 G/DL (32-36); MEAN CORPUSCULAR VOLUME 86 FL (80-99); MEAN PLATELET VOLUME 8.3 FL (7.4-10.4); MONOCYTES # (AUTO) 0.5 X 10^3 (0.0-1.0); MONOCYTES % (AUTO) 4 % (0-12); NEUTROPHILS # (AUTO) 11.1 X 10^3 (1.8-7.8); NEUTROPHILS % (AUTO) 88 % (42-75); PLATELET COUNT 391 10^3/uL (130-400); RED BLOOD COUNT 3.46 10^6/uL (4.35-5.85); WHITE BLOOD COUNT 12.6 10^3/uL (4.3-11.0)
--- NOTE | 2017-02-16 09:36 | Physical Therapy Evaluation ---
PT Evaluation-General Medical Diagnosis Admission Date Feb 13, 2017 at 16:59 Medical Diagnosis: laminectomy/compression fracture T12 Onset Date: Feb 13, 2017 Therapy Diagnosis Therapy Diagnosis: severe debility/weakness Height/Weight Height (Feet): 5 Height (Inches): 4.00 Weight (Pounds): 218 Weight (Ounces): 9.0 Precautions Precautions/Isolations: Fall Prevention, Standard Precautions Weight Bear Status Weight Bearing Restriction: Weight Bearing/Tolerated Location Restriction: LE Bilateral Referral Physician: Ayde Reason for Referral: Evaluation/Treatment Medical History Pertinent Medical History: Dementia, GERD, HTN Additional Medical History breast cancer Current History epidural abscess s/p laminectomy uncontrolled pain Reviewed History: Yes Social History Home: Shelter Prior/Core FIM Prior Level of Function Functional [place] Measure 0=Not Assessed/NA 4=Minimal Assistance 1=Total Assistance 5=Supervision or Setup 2=Maximal Assistance 6=Modified [place] 3=Moderate Assistance 7=Complete [place] Bed Mobility: 4 Transfers (B,C,W/C) (FIM): 4 Gait: 2 PT Evaluation-Current Subjective Patient is in bed and c/o 10/10 back pain (FLACC) Pain Numeric Pain Scale: 10-Worst Possible Pain Location: Upper, Lower Location Body Site: Back Pain Description: Acute Objective Patient Orientation: Confused Problem Solving: Poor Attachments: Drains, Sandoval Catheter, IV ROM/Strength ROM Lower Extremities bilateral LE WNL Strenght Lower Extremities 3/5 grossly bilateral LE (difficulty with formal testing due to dementia and uncontrolled pain) Integumentary/Posture Integumentary refer to nursing notes Bladder Incontinence: Sandoval Cath Posture flexed hip posture Neuromuscular (Tone, Coordination, Reflexes) diminished coordination due to pain and inactivity Sensory Vision: Functional Hearing: Functional Sensation Right Lower Extremit: Intact Sensation Left Lower Extremity: Intact Transfers Functional [place] Measure 0=Not Assessed/NA 4=Minimal Assistance 1=Total Assistance 5=Supervision or Setup 2=Maximal Assistance 6=Modified [place] 3=Moderate Assistance 7=Complete [place] Transfers (B, C, W/C) (FIM): 1 Scootin Rollin Supine to/from Sit: 1 Sit to/from Stand: 2 bed t/f WC(FIM only if WC use): 2 Patient unable to utilize FWW for sit to stand and SPT; max assist by PT with this task Gait Mode of Locomotion: Both Anticipated Mode of Locomotion: Both Gait (FIM): 1 Distance (FIM): 1=up to 49 ft Distance: 3 steps Gait Level of Assist: 2 Gait Persons Needed: 1 Comments/Gait Description will use FWW when pain is controlled; utilized PT at this time Balance Sitting Static: Fair Sitting Dynamic: Fair Standing Static: Poor Standing Dynamic: Poor Assessment/Needs 81 y.o. female, will benefit from skilled PT to address functional strength and mobility to improve current LOF. Patient is currently in uncontrolled pain and is aware and will address. 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 Time Frame: Feb 24, 2017 Transfers (B,C,W/C) (FIM): 4 Gait (FIM): 1 Gait distance (FIM): 1=up to 49 ft Distance: 45' Gait Level of Assist: 4 Gait Assistive Device: FWW PT Plan Problem List Problem List: Activity Tolerance, Functional Strength, Safety, Balance, Gait, Transfer, Bed Mobility, ROM, Other (pain) Treatment/Plan Treatment Plan: Continue Plan of Care Treatment Plan: Bed Mobility, Education, Functional Activity Deana, Functional Strength, Gait, Safety, Therapeutic Exercise, Transfers Treatment Duration: Feb 24, 2017 Frequency: Daily Estimated Hrs Per Day: .25 hour per day Patient and/or Family Agrees t: Yes Discharge Recommendations Therapy D/C Recommendations: Shelter Placement Time/GCodes Time In: 855 Time Out: 910 Total Billed Treatment Time: 15 Total Billed Treatment 1 visit EVLowC 15 min G Codes Necessary: ONELIA Moncada PT Feb 16, 2017 09:36
[2017-02-16 09:42] LABS: ALANINE AMINOTRANSFERASE 37 U/L (0-55); ANION GAP 9 MMOL/L (5-14); ASPARTATE AMINO TRANSFERASE 22 U/L (5-34); BILIRUBIN,TOTAL 0.3 MG/DL (0.1-1.0); BLOOD UREA NITROGEN 11 MG/DL (7-18); BUN/CREATININE RATIO 16; CALCIUM 8.5 MG/DL (8.5-10.1); CARBON DIOXIDE 26 MMOL/L (21-32); CHLORIDE 100 MMOL/L (98-107); CREATININE SERUM 0.67 MG/DL (0.60-1.30); GFR ESTIMATED > 60; GLUCOSE 185 MG/DL (70-105); POTASSIUM 4.4 MMOL/L (3.6-5.0); SODIUM 135 MMOL/L (135-145); TOTAL PROTEIN 5.6 GM/DL (6.4-8.2)
[2017-02-16] MEDS: DIAZEPAM 2 MG (VALIUM) TAB PO PRN (10:22)
--- NOTE | 2017-02-16 10:29 | Progress Note-Hospitalist ---
Progress Note HPI/CC on Admission The patient is a 81-year-old white female referred to the hospitalist service by a nurse practitioner in the [facility] emergency room. She reported that the patient had a certain degree of dementia and had recently been placed in a [facility]. She had a previous history of urinary tract infections and appeared to have one at their evaluation. She had been seeing Dr. Nunes from the cancer clinic relative to a breast cancer with previous left mastectomy. She had recently been complaining of pain in the back. After considerable searching of other resources I was able to find a CT chest and abdomen report from 02/07 which showed a 20 percent compression fracture at the level of T12 with concern for a lytic lesion as from breast cancer. At this point information seemed to pour in. She was to have had an appointment with Dr. Philip Sandhu who is a spine surgeon at the [address] in [place]. The consideration was to be for kyphoplasty and biopsy. The CT scan report voiced concern over the possibility of retropulsion of a fragment into the spinal canal and suggested MRI with and without contrast. These findings were discussed with the patient's daughter by telephone. 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 Pt had a patch that she may not have been wearing Pt still has a catheter PT Review: Laminectomy yesterday POD # 1 and does not appear to be tumor or abscess Pt needs something like Ativan Pt is in a lot of uncontrolled pain. Pt was able to stand, but was in pain and nervous Patient Interview: Pt states that she does not remember having surgery last night Pt was talking about her fingernails upon interview, which seemed unnecessary Pt confirms experiencing pain. UTI discussed and pt denies remembering that she had it Physical exam stable AFVSS, Pleasant, O x ~1-2, does not remember me and I have seen her twice RRR, CTAB Difficult moving due to pain No edema Assessment: Confusion with UTI and compression fracture to spine T12 s/p laminectomy but no evidence of tumor or abscess as suggested by MRI Cx pending and placed on abx empirically Breast cancer on treatment Dementia severe HTN GERD Plan: SCDs and hold Lovenox in case repeat surgery in near future Conferred with Dr. Sandhu regarding procedure plan Await UCx from [facility] and continue abx empirically and await spine cultures from last night Dementia precludes anything other than a poor prognosis Swingbed eval and will likely place tomorrow PT Muscle relaxers low dose Valium 0.5mg TID prn Catheter DC soon Scribed by Ana Pena under the direct supervision of Dr. Mchugh. KIA MCHUGH DO Feb 16, 2017 10:29
--- NOTE | 2017-02-16 10:46 | Diagnostic Imaging Report ---
EXAMINATION: 2 views of the lumbar spine. INDICATION: Postop laminectomy. FINDINGS: There is reversal of the lordotic curvature in the upper lumbar spine. There is a compression fracture of T12 vertebral body with poor definition of the inferior endplate. There is laminectomy change seen involving T12-L3 levels. The alignment of the posterior spinal line is satisfactory. There is prominent disc degenerative changes at L2/3 level with anterior osteophytes. There is a catheter projecting over the left side of the abdomen and surgical clips in the right side of the abdomen. Skin denise along the mid back are seen. IMPRESSION: Compression fracture of T12 vertebral body with poor definition of the inferior endplate compatible with MRI findings of discitis osteomyelitis. Dictated by: Dictated on workstation # [id number]
[2017-02-16] MEDS: HYDROcodone/APAP 7.5 MG/325 MG (LORTAB, LORCET PLUS) TABLET PO PRN ×3 (11:05→21:20)
[2017-02-16 12:00] VITALS: BP 139/63
--- NOTE | 2017-02-16 12:38 | Anesthesia-General Post-Op ---
General Patient Condition Mental Status/LOC: Same as Preop Cardiovascular: Satisfactory Nausea/Vomiting: Absent Respiratory: Satisfactory Pain: Controlled Complications: Absent Post Op Complications Complications None Follow Up Care/Instructions Patient Instructions None needed. Anesthesia/Patient Condition Patient Condition Patient is doing well, no complaints, stable vital signs, no apparent adverse anesthesia problems. No complications reported per nursing. LUZ WASHINGTON CRNA Feb 16, 2017 12:38
--- NOTE | 2017-02-16 15:59 | Occupational Therapy Eval ---
OT Evaluation-General/PLF Medical Diagnosis Admission Date Feb 13, 2017 at 16:59 Medical Diagnosis: laminectomy/compression fracture T12 Onset Date: Feb 13, 2017 Therapy Diagnosis Therapy Diagnosis: decr self care, decr funct mobility, weakness Height/Weight Height (Feet): 5 Height (Inches): 4.00 Weight (Pounds): 218 Weight (Ounces): 9.0 Precautions Precautions/Isolations: Standard Precautions Safety Interventions: Bed Exit Alarm, Reorient-Attempt, Reorient-PRN Weight Bear Status Weight Bearing Restriction: Weight Bearing/Tolerated Location Restriction: LE Bilateral Referral Physician: Ayde Referral Reason: Evaluation/Treatment Medical History Pertinent Medical History: Dementia, GERD, HTN Additional Medical History New onset bowel and bladder changes, leg pain. Chronic constipation. Pt has been living at correction in [facility]. Breast cancer with mastectomy (pt reported 3 yr ago) Current History Had compression fx and was pending kyphoplasty and biopsy of lesion. MRI showed epidural abscess . T12-L4 laminectomy and evacuation of abscess on 02-15. Reviewed History: Yes Social History Home: Assisted ADL-Prior Level of Function ADL PLOF Comments Pt reported that she was able to feed herself but needed help with other self care needs. She was unable to be more specific Drive Self: No OT Current Status Subjective Pt seen in bed, agreeable to OT. Pt reported pain 10/10 but pain behaviors not observed. Appearance Alert, pleasant, confused Mental Status/Objective Patient Orientation: Person Attachments: Drains, IV Current Glasses/Contacts: Yes Dentures/Partials: No Hand Dominance: Right Upper Extremity ROM Grossly WFL bilat Upper Extremity Strength grossly 4/5 bilat ADL-Treatment ADL-Current Nursing documentation shows she is able to feed herself independently. Functional [place] Measure 0=Not Assessed/NA 4=Minimal Assistance 1=Total Assistance 5=Supervision or Setup 2=Maximal Assistance 6=Modified [place] 3=Moderate Assistance 7=Complete IndependenceIRFPAI Quality Coding Scale 6 Independent with activity with or without an assistive device 5 Patient requires set up or clean up by helper. Patient completes activity by themselves 4 Supervision or touching assist (CGA). [place] provide cues , steadying assist 3 The helper provides less than half the effort to complete the activity 2 The helper provides more than half the effort to complete the activity 1 Dependent. The helper does all the effort to complete an activity 7 Patient refused to complete or attempt activity 9 The patient did not perform the activity before the current illness or injury 88 Not attempted due to Medical conditions or safety concerns Pt left up in bed, all needs met. 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 2=Patient will verbalize/demonstrate understanding of assistive devices/ modifications for ADL. 3=Patient will improve strength/tolerance for activity to enable patient to perform ADL's. OT Education/Plan Problem List/Assessment Assessment: Decreased Safety Aware, Decreased UE Strength, Dependent Transfers , Impaired Funct Balance, Impaired Self-Care Skills Pt would benefit from skilled OT to increase her independence in basic self care to allow her to live in the least restrictive environment and decrease caregiver burden Discharge Recommendations Plan/Recommendations: Continue POC Barriers to Progress pain management Target Placement skilled Treatment Plan/Plan of Care Treatment,Training & Education: Yes Patient would benefit from OT for education, treatment and training to promote independence in ADL's, mobility, safety and/or upper extremity function for ADL' s. Plan of Care: ADL Retraining, Functional Mobility, UE Funct Exercise/Act, UE Neuromus Re-Ed/Coord Treatment Duration: Feb 24, 2017 Frequency: Daily Estimated Hrs Per Day: .5 hour per day Agreement: Yes Rehab Potential: Fair Time/GCodes Start Time: 15:15 Stop Time: 15:26 Total Time Billed (hr/min): 11 Billed Treatment Time visit, 11 minutes evaluation moderate intensity LADONNA LARA OT Feb 16, 2017 15:59
[2017-02-16 16:00] VITALS: BP 119/56
[2017-02-16] MEDS ORDERED: VANCOMYCIN 1500 MG/NS 500 ML IVPB IV SCH ×2 (16:00)
[2017-02-16 19:00] VITALS: BP 145/70
--- NOTE | 2017-02-16 19:34 | Progress Note (SOAP) ---
Subjective Date Seen by Provider: Feb 16, 2017 Time Seen by Provider: 19:29 Subjective/Events-last exam Harmony is POD #1 s/p T12-L4 laminectomy and culture of the epidural space. She is known to have T12 compression fracture and breast cancer, she had imaging concerning for epidural abbess. She is resting comfortably and slightly confused, she doesn't remember needing or having surgery. Her pain is mild and she has no complaints currently Review of Systems General: No Chills, No Night Sweats HEENT: No Head Aches, No Visual Changes Cardiovascular: No: Chest Pain, Palpitations Gastrointestinal: No: Abdominal Pain, Nausea, Vomiting Musculoskeletal: back pain Neurological: Confusion, No: Change in speech, Numbness, Weakness Objective Exam Vital Signs Date Time Temp Pulse Resp B/P (MAP) Pulse Ox O2 Delivery O2 Flow Rate FiO2 02/16/17 16:00 98.0 88 18 119/56 94 Room Air 02/16/17 12:00 99.1 96 18 139/63 95 Room Air 02/16/17 08:00 100 Room Air 2.00 02/16/17 07:25 98.4 103 22 156/64 99 Room Air 02/16/17 04:00 97.1 76 18 159/76 98 Room Air 02/16/17 00:00 97.0 78 18 136/63 95 Room Air 02/15/17 23:13 2.00 02/15/17 22:20 96.4 69 6 140/69 97 Room Air I & O 02/16/17 07:00 Intake Total 2580 ml Output Total 1510 ml Balance 1070 ml Capillary Refill : Less Than 3 Seconds General Appearance: No Apparent Distress Neck: Non Tender, Supple Respiratory: No Accessory Muscle Use, No Respiratory Distress Cardiovascular: No Murmur, Normal Peripheral Pulses Peripheral Pulses: 2+ Dorsalis Pedis (R), 2+ Left Dors-Pedis (L) Gastrointestinal: non tender, soft Extremity: Normal Inspection, Normal Range of Motion, Non Tender, No Calf Tenderness Neurologic/Psychiatric: Alert, No Motor/Sensory Deficits Skin: Normal Color, Warm/Dry Results Lab Laboratory Tests 02/16/17 09:08: White Blood Count 12.6H, Red Blood Count 3.46L, Hemoglobin 9.7L, Hematocrit 30L , Mean Corpuscular Volume 86, Mean Corpuscular Hemoglobin 28, Mean Corpuscular Hemoglobin Concent 33, Red Cell Distribution Width 15.0H, Platelet Count 391, Mean Platelet Volume 8.3, Neutrophils (%) (Auto) 88H, Lymphocytes (%) (Auto) 8L , Monocytes (%) (Auto) 4, Eosinophils (%) (Auto) 0, Basophils (%) (Auto) 0, Neutrophils # (Auto) 11.1H, Lymphocytes # (Auto) 1.0, Monocytes # (Auto) 0.5, Eosinophils # (Auto) 0.0, Basophils # (Auto) 0.0, Sodium Level 135, Potassium Level 4.4, Chloride Level 100, Carbon Dioxide Level 26, Anion Gap 9, Blood Urea Nitrogen 11, Creatinine 0.67, Estimat Glomerular Filtration Rate > 60, BUN/ Creatinine Ratio 16, Glucose Level 185H, Calcium Level 8.5, Total Bilirubin 0.3 , Aspartate Amino Transf (AST/SGOT) 22, Alanine Aminotransferase (ALT/SGPT) 37, Alkaline Phosphatase 76, Total Protein 5.6L, Albumin 3.0L Microbiology 02/15/17 Gram Stain - Final, Resulted 02/15/17 Anaerobic Culture, Resulted Pending 02/15/17 Surgical Culture - Preliminary, Resulted No growth 02/15/17 Fungal Culture, Resulted Pending Assessment/Plan Assessment/Plan Assess & Plan/Chief Complaint Assessment: POD # 1 s/p laminectomy T12-L4 T12 fracture breast cancer dementia Plan: continue current care, monitor labs, wbc increased today on broad spectrum antibiotics - gram stains were negative for bacteria, awaiting cultures and afb continue hemovac order tlso pain control Clinical Quality Measures DVT/VTE Risk/Contraindication: Risk Factor Score Per Nursin RFS Level Per Nursing on Admit: 4+=Very High Contraindications-Pharm: Other *list below* Other: aurgerBEREKET Nobles Feb 16, 2017 19:34
[2017-02-17] MEDS: fentaNYL INJECTION 100 MCG/2 ML AMP IVP PRN ×5 (00:06→20:04)
[2017-02-17 00:42] VITALS: BP 136/68
[2017-02-17] MEDS: NS W/KCL 40 MEQ/L 1,000 ML IV SCH ×3 (01:01→12:48)
[2017-02-17 04:44] VITALS: BP 136/63
[2017-02-17] MEDS: HYDROcodone/APAP 7.5 MG/325 MG (LORTAB, LORCET PLUS) TABLET PO PRN ×2 (05:00→08:54)
[2017-02-17] MEDS ORDERED: VANCOMYCIN 1500 MG/NS 500 ML IVPB IV SCH ×2 (06:00)
[2017-02-17] MEDS: PANTOPRAZOLE 20 MG TABLET (PROTONIX) PO SCH (06:07)
[2017-02-17] MEDS: KCL 20 MEQ TAB (K-DUR) PO SCH ×2 (06:07→16:41)
[2017-02-17] MEDS: cefTRIAXone INJECTION 1,000 MG in NS (IVPB) 50 ML IV SCH (08:00)
[2017-02-17] MEDS: DOCUSATE SODIUM 100 MG (COLACE) CAP PO SCH (08:03)
[2017-02-17 08:13] VITALS: BP 139/85
[2017-02-17] MEDS: DIAZEPAM 2 MG (VALIUM) TAB PO PRN ×3 (08:52→21:25)
--- NOTE | 2017-02-17 09:19 | Physical Therapy Daily Note ---
PT Daily Note-Current Subjective Patient is in bed and very confused. Agrees to OOB activity. Pain Numeric Pain Scale: 10-Worst Possible Pain Location: Medial, Upper, Lower Location Body Site: Back Pain Description: Acute Comment: dependent assist to kale back brace Mental Status Patient Orientation: Confused Attachments: IV Transfers Functional Snyder Measure 0=Not Assessed/NA 4=Minimal Assistance 1=Total Assistance 5=Supervision or Setup 2=Maximal Assistance 6=Modified Snyder 3=Moderate Assistance 7=Complete IndependenceIRFPAI Quality Coding Scale 6 Independent with activity with or without an assistive device 5 Patient requires set up or clean up by helper. Patient completes activity by themselves 4 Supervision or touching assist (CGA). [place] provide cues , steadying assist 3 The helper provides less than half the effort to complete the activity 2 The helper provides more than half the effort to complete the activity 1 Dependent. The helper does all the effort to complete an activity 7 Patient refused to complete or attempt activity 9 The patient did not perform the activity before the current illness or injury 88 Not attempted due to Medical conditions or safety concerns Transfers (B, C, W/C) (FIM): 2 Scootin Rollin Supine to/from Sit: 2 Sit to/from Stand: 2 Bed to/from Chair: 3 Patient is yelling and crying in pain. RN is present and issued medication. Patient is able to ambulate 5' with FWW with mod assist. Gait Training Gait (FIM): 1 Distance (FIM): 1=up to 49 ft Distance: 5' Gait Level of Assist: 3 Gait Persons Needed: 1 Gait Assistive Device: FWW Pain and anxiety limits patient's mobility Assessment Patient is incontinent urine requiring dependent assist to cleanse patient. Patient is up in recliner at this time. Patient requires time to complete all functional tasks due to pain and dementia. PT [facility] Goals Manager Sales Support Goals PT Manager Sales Support Goals Time Frame: Feb 24, 2017 Transfers (B,C,W/C) (FIM): 4 Gait (FIM): 1 Gait distance (FIM): 1=up to 49 ft Distance: 45' Gait Level of Assist: 4 Gait Assistive Device: FWW PT Plan Treatment/Plan Treatment Plan: Continue Plan of Care Treatment Plan: Bed Mobility, Education, Functional Activity Deana, Functional Strength, Gait, Safety, Therapeutic Exercise, Transfers Treatment Duration: Feb 24, 2017 Frequency: Daily Estimated Hrs Per Day: .25 hour per day Patient and/or Family Agrees t: Yes Time/GCodes Time In: 836 Time Out: 859 Total Billed Treatment Time: 23 Total Billed Treatment 1 visit FA x 2 23 min ONELIA JAMES PT Feb 17, 2017 09:19
--- NOTE | 2017-02-17 10:21 | OPERATIVE REPORT ---
DATE OF SERVICE: 02/15/2017 SURGEON: Asad Sandhu DO DOOR OPENER: SANDRA Loya This is a medically under separate procedure. An business office assistant is necessary for retraction of vital neurovascular structures. Without an business office assistant, the procedure would not be possible. PREOPERATIVE DIAGNOSES: 1. Lumbar spinal stenosis (foraminal, bony, central, connective tissue). 2. Abscess ____ L3-L4. 3. Evacuation of epidural abscess. POSTOPERATIVE DIAGNOSES: 1. Lumbar spinal stenosis (foraminal, bony, central, connective tissue). 2. Abscess ____ L3-L4. 3. Evacuation of epidural abscess. COMPLICATIONS: None. SPECIMEN SENT: Aerobic, anaerobic, fungal, AFB. DRAIN PLACED: Subfascial Hemovac. ANESTHESIA: General endotracheal tube anesthesia with local anesthetic. ESTIMATED BLOOD LOSS: Approximately 450 mL. HISTORY OF PRESENT ILLNESS: The patient is very pleasant 81-year-old female who presented to the hospital and was admitted under medicine. She did have back pain and a bone scan was obtained which demonstrated osteoblastic activity at the T12 area. I then ordered an MRI to further characterize this suspected fracture in preparation for a kyphoplasty. I was notified after the MRI the presence of what appeared to be epidural abscess originating from T12-L1 diskitis. Given the emergent nature of this issue, the patient's progressive neurologic deficit, it was decided to proceed with an emergent bilateral laminectomy with evacuation of that abscess. She was agreeable to the plan as was the family. OPERATION: The patient was identified by name on wrist band in the preoperative holding area, the operating site was signed, consent was signed, SCDs were placed, a neuro monitor was hooked up and antibiotics were started. She was taken to the operating room theater, placed under general endotracheal tube anesthesia and transferred to the operating room table in a prone position, all bony prominences were well-padded. She was prepped and draped in a sterile fashion. A full timeout was conducted. A lateral x-ray was used to gosia out the extent of my incision. The skin and soft tissue were infiltrated with 0.5% Marcaine with epinephrine. A midline skin incision was made from the spinous process of T12 to the spinous process of L4. A bilateral subperiosteal paraspinal muscular approach then took place exposing the posterior elements. Once this was complete, I started a laminectomy utilizing Leksell rongeurs, Jaya rongeurs, high speed burs. I laminectomized bilaterally from T12-L1, L1-L2, L2-L3, L3-L4. I did a wide decompression, however, at the same time I attempted to preserve the integrity of the facet joints and the pars. I did wish to avoid placement of any foreign materials such as screws, rods or cement given the possibility of infection. Please note that at no time during the procedure did I note kinga pus or anything that appeared to be infected. I was careful to retract the thecal sac medially at each level to gain access to the anterior epidural space. Once again, nothing was noted that resembled pus. Cultures were taken of that epidural anterior space, however, at multiple levels. Once I was satisfied with the decompression, I placed a deep subfascial Hemovac drain, I sewed that drain into place and maintained hemostasis and I closed the wound utilizing 0 Vicryl followed by 2-0 Vicryl followed by denise for the skin. I applied dressings, took the patient to a supine position in the PACU where she awoke without incident. She tolerated the procedure well. PLAN: At this time will be for follow those culture results, follow her white blood cell count, inflammatory markers such as CRP, ESR and the antibiotic continuation will be contingent on culture results. She will have a brace to wear when she is out of bed, specifically a thoracolumbar brace given the location of the laminectomy at the thoracolumbar junction. Please note neuro monitoring was stable throughout the procedure. Job ID: [id number] DocumentID: [id number] Dictated Date: 02/16/2017 07:03:22 Bean Roaster Date: 02/16/2017 08:32:28 Dictated By: ASAD SANDHU DO
[2017-02-17] MEDS ORDERED: LIDOCAINE 1% INJ 20 ML (XYLOCAINE) VIAL INJ ONE (11:00)
[2017-02-17] MEDS ORDERED: fentaNYL INJECTION 100 MCG/2 ML AMP IVP PRN (11:15)
--- NOTE | 2017-02-17 11:57 | Occ Therapy Progress Note ---
Therapy Progress Note Attempted OT treatment at 1130. Pt unavailable for treatment secondary to leaving floor for procedure. RN states pt will be off floor for 1-2 hours. SANDY FIORE OT Feb 17, 2017 11:57
[2017-02-17 12:00] VITALS: BP 155/67
--- NOTE | 2017-02-17 12:49 | Progress Note-Hospitalist ---
Progress Note HPI/CC on Admission The patient is a 81-year-old white female referred to the hospitalist service by a nurse practitioner in the [facility] emergency room. She reported that the patient had a certain degree of dementia and had recently been placed in a [place] snf. She had a previous history of urinary tract infections and appeared to have one at their evaluation. She had been seeing Dr. Nunes from the cancer clinic relative to a breast cancer with previous left mastectomy. She had recently been complaining of pain in the back. After considerable searching of other resources I was able to find a CT chest and abdomen report from 02/07 which showed a 20 percent compression fracture at the level of T12 with concern for a lytic lesion as from breast cancer. At this point information seemed to pour in. She was to have had an appointment with Dr. Philip Sandhu who is a spine surgeon at the [address] in [place]. The consideration was to be for kyphoplasty and biopsy. The CT scan report voiced concern over the possibility of retropulsion of a fragment into the spinal canal and suggested MRI with and without contrast. These findings were discussed with the patient's daughter by telephone. She voiced concern over the pain her mother was suffering but also the recent at rather marked increase in her memory and confusion problems Progress Notes/Assess & Plan Date Seen 02/17/17 Time Seen by Provider: 11:00 Diagonsis/Assessment & Plan Patient still in a lot of pain. Requested to be left alone and sent back to home to and her life which would seem reasonable that the back pain is requiring identification of the source in order to resolve for quality of life whether that be an infection versus tumor spread from breast cancer so bone biopsy will be recommended and performed by interventional radiology I spoke with Dr. Sandhu and Dr. Solano and Dr Valadez and palliative care nurse and nursing staff because she reports that she didn't want to have the test done but her dementia often clouds her judgment so very difficult situation I spent 45 minutes in conversation with other physicians and technician support association regarding this case. AFVSS, Pleasant, O x 1 poor recall, confused, in pain RRR, CTAB no edema Assessment: Confusion with UTI and compression fracture to spine T12 s/p laminectomy but no evidence of tumor or abscess as suggested by MRI Cx pending and placed on abx empirically but bone biopsy required since all cultures are negative and lipomatosis noted in OR so suspected infection versus tumor and the procedure is required due to severity of her pain and I cannot resolve this pain unless I know what the source is and then if it is cancer will have kyphoplasty to resolve the pain and DC as she is requesting back to NH on Hospice if this is indeed what she wants but DPOA approve the procedure. Breast cancer on treatment Dementia severe HTN GERD UCx Proteus sensitive to Ampicillin Plan: Dementia precludes anything other than a poor prognosis but await bone biopsy PT Muscle relaxers low dose Valium 0.5mg TID prn Scribed by Ana Pena under the direct supervision of Dr. Mchugh. KIA MCHUGH DO Feb 17, 2017 12:49
--- NOTE | 2017-02-17 12:54 | Pre-Procedure Progress Note ---
Pre-Procedure Progress Note H&P Reviewed The H&P was reviewed, patient examined and no changes noted. Date H&P Reviewed: Feb 17, 2017 Time H&P Reviewed: 11:00 Pre-Procedure Diagnosis: T12 fracture CONSTANZA BARRAZA MD Feb 17, 2017 12:54
--- NOTE | 2017-02-17 12:55 | Diagnostic Imaging Report ---
EXAMINATION: Fluoroscopic guided deep bone biopsy-vertebra thoracic T12. INDICATION: T12 vertebral suspected pathologic fracture and infection Current history and physical and other medical records are reviewed prior to the procedure. CONSENT: Informed consent was obtained from the patient. The risks, benefits, potential complications and alternatives were reviewed and all questions answered to the patient's satisfaction. The patient's vital signs, cardiac rhythm, and pulse oximetry were observed throughout the procedure by qualified nursing personnel. Sedation/medications: none. FINDINGS: T12 compression fracture with the erosion of the inferior endplate. PROCEDURE: After maximal sterile barrier technique preparation and draping, 1% lidocaine was utilized for local anesthesia. With the patient in prone position, and via right posterior paraspinal approach, a 17-gauge guide needle is introduced into the T12 vertebral body under CT scan guidance. After confirming adequate positioning with saved CT images, multiple 18 gauge core biopsy specimens were obtained. The patient tolerated the procedure well with no immediate complications. IMPRESSION: Successful CT-guided biopsy of T12 vertebral body sent for cultures and pathology evaluation. Dictated by: Dictated on workstation # [id number]
[2017-02-17] MEDS ORDERED: TROUGH ORDER-PHARMACY XX ONE (13:00)
[2017-02-17] MEDS ORDERED: VANCOMYCIN 2000 MG/NS 500 ML IVPB IV NR ×2 (14:00)
[2017-02-17] MEDS: fentaNYL PATCH 25 MCG (DURAGESIC) TD SCH (14:10)
[2017-02-17] MEDS ORDERED: FENTANYL PATCH REMOVAL TP SCH (14:29)
[2017-02-17] MEDS ORDERED: BISACODYL 10 MG SUPP (DULCOLAX) PR NR (14:30)
[2017-02-17] MEDS: LACTULOSE SYRUP 10GM/15ML (ENULOSE) 30ML UDC PO SCH ×2 (15:14→20:00)
[2017-02-17 16:40] VITALS: BP 146/84
--- NOTE | 2017-02-17 17:21 | Progress Note (SOAP) ---
Subjective Date Seen by Provider: Feb 17, 2017 Time Seen by Provider: 17:17 Subjective/Events-last exam KATIA. Patient is sundowning which precludes a good history. she seems comfortable , however. She denies any new numbness or tingling. Objective Exam Vital Signs Date Time Temp Pulse Resp B/P (MAP) Pulse Ox O2 Delivery O2 Flow Rate FiO2 02/17/17 16:40 98.9 92 22 146/84 98 Room Air 02/17/17 12:00 98.4 84 20 155/67 99 Room Air 02/17/17 08:22 Room Air 2.00 02/17/17 08:13 97.3 90 22 139/85 98 Room Air 02/17/17 04:44 98.5 85 18 136/63 97 Room Air 02/17/17 00:42 98.8 88 18 136/68 98 Room Air 02/16/17 19:00 98.7 90 18 145/70 96 Room Air I & O 02/17/17 07:00 Intake Total 5035 ml Output Total 185 ml Balance 4850 ml Capillary Refill : Less Than 3 Seconds General Appearance: No Apparent Distress Extremity: Other (3/5 right hip flexion, 5/[address], 2/4 DP, PT) Results Lab Laboratory Tests 02/17/17 13:05: Vancomycin Level Trough 7.3L Microbiology 02/15/17 MRSA Screen - Final, Complete MRSA not isolated 02/17/17 Mycobacterial Culture - Final, Complete Assessment/Plan Assessment/Plan Assess & Plan/Chief Complaint ASSESSMENT: s/p T12-L4 laminectomy 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
[2017-02-17 19:55] VITALS: BP 156/72
[2017-02-17] MEDS ORDERED: LORazepam INJ 2 MG/ML (ATIVAN) VIAL IVP PRN (22:00)
[2017-02-17] MEDS ORDERED: HALOPERIDOL 5 MG/ML (HALDOL) AMP IM PRN (22:00)
[2017-02-18] VITALS (7 sets, daily range): BP systolic 128–174; BP diastolic 60–93
[2017-02-18] MEDS: fentaNYL INJECTION 100 MCG/2 ML AMP IVP PRN ×5 (00:26→18:57)
[2017-02-18] MEDS: NS W/KCL 40 MEQ/L 1,000 ML IV SCH (01:58)
[2017-02-18 05:19] LABS: ALANINE AMINOTRANSFERASE 27 U/L (0-55); ALBUMIN 2.8 GM/DL (3.2-4.5); ANION GAP 11 MMOL/L (5-14); ASPARTATE AMINO TRANSFERASE 18 U/L (5-34); BILIRUBIN,TOTAL 0.4 MG/DL (0.1-1.0); BLOOD UREA NITROGEN 5 MG/DL (7-18); BUN/CREATININE RATIO 9; CALCIUM 8.1 MG/DL (8.5-10.1); CARBON DIOXIDE 18 MMOL/L (21-32); CHLORIDE 105 MMOL/L (98-107); CREATININE SERUM 0.58 MG/DL (0.60-1.30); GFR ESTIMATED > 60; GLUCOSE 108 MG/DL (70-105); POTASSIUM 4.7 MMOL/L (3.6-5.0); SODIUM 134 MMOL/L (135-145); TOTAL PROTEIN 5.1 GM/DL (6.4-8.2)
[2017-02-18] MEDS: KCL 20 MEQ TAB (K-DUR) PO SCH ×2 (06:11→18:04)
[2017-02-18] MEDS: PANTOPRAZOLE 20 MG TABLET (PROTONIX) PO SCH (06:11)
[2017-02-18 06:19] LABS: BASOPHILS # (AUTO) 0.1 10^3/uL (0.0-0.1); BASOPHILS % (AUTO) 1 % (0-10); EOSINOPHILS # (AUTO) 0.3 10^3/uL (0.0-0.3); EOSINOPHILS % (AUTO) 2 % (0-10); LYMPHOCYTES # (AUTO) 2.2 X 10^3 (1.0-4.0); LYMPHOCYTES % (AUTO) 20 % (12-44); MEAN CORPUSCULAR HEMOGLOBIN 28 PG (25-34); MEAN CORPUSCULAR HGB CONC 33 G/DL (32-36); MEAN CORPUSCULAR VOLUME 86 FL (80-99); MEAN PLATELET VOLUME 8.3 FL (7.4-10.4); MONOCYTES # (AUTO) 1.1 X 10^3 (0.0-1.0); MONOCYTES % (AUTO) 10 % (0-12); NEUTROPHILS # (AUTO) 7.3 X 10^3 (1.8-7.8); NEUTROPHILS % (AUTO) 67 % (42-75); PLATELET COUNT 412 10^3/uL (130-400); RED BLOOD COUNT 3.47 10^6/uL (4.35-5.85); RED CELL DISTRIBUTION WIDTH 15.7 % (10.0-14.5); WHITE BLOOD COUNT 10.9 10^3/uL (4.3-11.0)
[2017-02-18] MEDS: VANCOMYCIN 1500 MG/NS 500 ML IVPB IV SCH ×4 (06:20→18:03)
[2017-02-18] MEDS: DOCUSATE SODIUM 100 MG (COLACE) CAP PO SCH (08:46)
[2017-02-18] MEDS: LACTULOSE SYRUP 10GM/15ML (ENULOSE) 30ML UDC PO SCH ×2 (08:47→21:29)
[2017-02-18] MEDS: cefTRIAXone INJECTION 1,000 MG in NS (IVPB) 50 ML IV SCH (08:47)
--- NOTE | 2017-02-18 09:07 | Physical Therapy Daily Note ---
PT Daily Note-Current Subjective Patient is very agitated this a.m. Incontinent urine. Pain Numeric Pain Scale: 10-Worst Possible Pain Location: Medial, Upper, Lower Location Body Site: Back Pain Description: Acute Comment: FLACC Mental Status Patient Orientation: Confused Attachments: Drains, IV Transfers Functional Stone Measure 0=Not Assessed/NA 4=Minimal Assistance 1=Total Assistance 5=Supervision or Setup 2=Maximal Assistance 6=Modified [place] 3=Moderate Assistance 7=Complete IndependenceIRFPAI Quality Coding Scale 6 Independent with activity with or without an assistive device 5 Patient requires set up or clean up by helper. Patient completes activity by themselves 4 Supervision or touching assist (CGA). [place] provide cues , steadying assist 3 The helper provides less than half the effort to complete the activity 2 The helper provides more than half the effort to complete the activity 1 Dependent. The helper does all the effort to complete an activity 7 Patient refused to complete or attempt activity 9 The patient did not perform the activity before the current illness or injury 88 Not attempted due to Medical conditions or safety concerns Transfers (B, C, W/C) (FIM): 1 Scootin Rollin Supine to/from Sit: 1 Sit to/from Stand: 1 Bed to/from Chair: 1 dependent assist with patient resisting all movement and yelling/crying due to pain. SURGICAL NURSE PRACTITIONER assist to cleanse and change patient during PT treatment. Assessment Patient is positioned in recliner with cushion to sit on and pillow behind back. Dependent assist to kale back brace, which, patient yells she does not like it. Nursing in room upon completion of treatment. PT Prison Goals Environmental Emergencies Planner Goals PT Prison Goals Time Frame: Feb 24, 2017 Transfers (B,C,W/C) (FIM): 4 Gait (FIM): 1 Gait distance (FIM): 1=up to 49 ft Distance: 45' Gait Level of Assist: 4 Gait Assistive Device: FWW PT Plan Treatment/Plan Treatment Plan: Continue Plan of Care Treatment Plan: Bed Mobility, Education, Functional Activity Deana, Functional Strength, Gait, Safety, Therapeutic Exercise, Transfers Treatment Duration: Feb 24, 2017 Frequency: Daily Estimated Hrs Per Day: .25 hour per day Patient and/or Family Agrees t: Yes Time/GCodes Time In: 815 Time Out: 830 Total Billed Treatment Time: 15 Total Billed Treatment 1 visit FA 15 min ONELIA JAMES PT Feb 18, 2017 09:07
[2017-02-18] MEDS: fentaNYL PATCH 50 MCG (DURAGESIC) TD SCH (11:22)
[2017-02-18] MEDS: FENTANYL PATCH REMOVAL TP SCH (11:22)
[2017-02-18] MEDS: amLODIPine 5 MG (NORVASC) TAB PO SCH (11:22)
--- NOTE | 2017-02-18 11:37 | Progress Note-Hospitalist ---
Progress Note HPI/CC on Admission The patient is a 81-year-old white female referred to the hospitalist service by a nurse practitioner in the [facility] emergency room. She reported that the patient had a certain degree of dementia and had recently been placed in a [place] snf. She had a previous history of urinary tract infections and appeared to have one at their evaluation. She had been seeing Dr. Nunes from the cancer clinic relative to a breast cancer with previous left mastectomy. She had recently been complaining of pain in the back. After considerable searching of other resources I was able to find a CT chest and abdomen report from 02/07 which showed a 20 percent compression fracture at the level of T12 with concern for a lytic lesion as from breast cancer. At this point information seemed to pour in. She was to have had an appointment with Dr. Philip Sandhu who is a spine surgeon at the [address] in [place]. The consideration was to be for kyphoplasty and biopsy. The CT scan report voiced concern over the possibility of retropulsion of a fragment into the spinal canal and suggested MRI with and without contrast. These findings were discussed with the patient's daughter by telephone. She voiced concern over the pain her mother was suffering but also the recent at rather marked increase in her memory and confusion problems Progress Notes/Assess & Plan Date Seen 02/18/17 Time Seen by Provider: 10:00 Diagonsis/Assessment & Plan Patient still in a lot of pain but increased Fentanyl is improving it. Updated daughter on the results that are still pending. Had confusion and agitation last night which RN contacted me and I gave order for Haldol and Ativan and then the daughter told me that she does not wish for her mother to receive Haldol and many other meds that might "make her more confused than she is." Was at [facility] in [facility] and the daughter does not wish to return her there and contemplating moving her the [place] in [place] closer to her doctors. Daughter had multiple questions including meds that could help her dementia like Aricept and I explained that her PCP would need to manage that aspect of her care. She met me out in [place] with notebook with list of meds for dementia and we wanted to go over all of these in detail before I told her that had to be managed by her PCP. + BM since aggressive bowel regimen was started yesterday. Still on Vanc and Rocephin empirically pending more culture results AFVSS, Pleasant, O x 1 poor recall, confused, in pain, in chair RRR, CTAB no edema Laboratory Tests 02/18/17 04:46 02/18/17 06:15 Assessment: Confusion with UTI and compression fracture to spine T12 s/p laminectomy but no evidence of tumor or abscess as suggested by MRI Cx pending and placed on abx empirically but bone biopsy required yesterday since all cultures are negative and lipomatosis noted in OR so suspected infection versus tumor and the procedure is required due to severity of her pain and I cannot resolve this pain unless I know what the source is and then if it is cancer will have kyphoplasty to resolve the pain and DC as she is requesting back to NH on Hospice if this is indeed what she wants but DPOA approved the procedure. Breast cancer on treatment Dementia severe- daughter refuses Haldol for agitation so DC HTN GERD UCx Proteus sensitive to Ampicillin Plan: Poor prognosis PT Pain meds Empiric abx Bone biopsy results at first of week Difficult to manage DPOA expectations KIA MCHUGH DO Feb 18, 2017 11:37
--- NOTE | 2017-02-18 11:42 | Progress Note (SOAP) ---
Subjective Date Seen by Provider: Feb 18, 2017 Time Seen by Provider: 11:00 Subjective/Events-last exam POD #3 s/p lumbar laminectomy. Sitting in chair, tlso in place, c/o back pain. Has no other new symptoms to report. Review of Systems General: No Chills, No Night Sweats HEENT: No Head Aches Cardiovascular: No: Chest Pain Gastrointestinal: No: Nausea, Vomiting Musculoskeletal: back pain Neurological: Confusion, No: Numbness, Weakness Objective Exam Vital Signs Date Time Temp Pulse Resp B/P (MAP) Pulse Ox O2 Delivery O2 Flow Rate FiO2 02/18/17 11:22 97.9 02/18/17 09:20 97.9 02/18/17 08:46 97.9 02/18/17 08:00 Room Air 02/18/17 08:00 97.9 86 18 171/90 92 Room Air 02/18/17 04:00 97.4 89 20 162/70 98 Room Air 02/18/17 00:08 98.7 91 20 165/93 98 Room Air 02/17/17 20:00 Room Air 02/17/17 19:55 98.9 96 20 156/72 99 Room Air 02/17/17 16:40 98.9 92 22 146/84 98 Room Air 02/17/17 12:00 98.4 84 20 155/67 99 Room Air I & O 02/18/17 06:59 Intake Total 3960 ml Output Total 410 ml Balance 3550 ml Capillary Refill : Less Than 3 Seconds General Appearance: No Apparent Distress Respiratory: No Accessory Muscle Use, No Respiratory Distress Cardiovascular: Normal Peripheral Pulses Peripheral Pulses: 2+ Dorsalis Pedis (R), 2+ Left Dors-Pedis (L) Extremity: No Calf Tenderness, No Pedal Edema Neurologic/Psychiatric: Alert, No Motor/Sensory Deficits Results Lab Laboratory Tests 02/17/17 13:05: Vancomycin Level Trough 7.3L 02/18/17 04:46: Sodium Level 134L, Potassium Level 4.7, Chloride Level 105, Carbon Dioxide Level 18L, Anion Gap 11, Blood Urea Nitrogen 5L, Creatinine 0.58L, Estimat Glomerular Filtration Rate > 60, BUN/Creatinine Ratio 9, Glucose Level 108H, Calcium Level 8.1L, Total Bilirubin 0.4, Aspartate Amino Transf (AST/SGOT) 18, Alanine Aminotransferase (ALT/SGPT) 27, Alkaline Phosphatase 81, Total Protein 5.1L, Albumin 2.8L 02/18/17 06:15: White Blood Count 10.9, Red Blood Count 3.47L, Hemoglobin 9.7L, Hematocrit 30L, Mean Corpuscular Volume 86, Mean Corpuscular Hemoglobin 28, Mean Corpuscular Hemoglobin Concent 33, Red Cell Distribution Width 15.7H, Platelet Count 412H, Mean Platelet Volume 8.3, Neutrophils (%) (Auto) 67, Lymphocytes (%) (Auto) 20, Monocytes (%) (Auto) 10, Eosinophils (%) (Auto) 2, Basophils (%) (Auto) 1, Neutrophils # (Auto) 7.3, Lymphocytes # (Auto) 2.2, Monocytes # (Auto) 1.1H, Eosinophils # (Auto) 0.3, Basophils # (Auto) 0.1 Microbiology 02/15/17 MRSA Screen - Final, Complete MRSA not isolated 02/17/17 Mycobacterial Culture - Final, Complete Assessment/Plan Assessment/Plan Assess & Plan/Chief Complaint Assessment: POD # 3 s/p laminectomy T12-L4 T12 fracture breast cancer dementia Plan: continue current care, monitor labs, tlso when oob lumbar wound cultures negative for growth pain control Clinical Quality Measures DVT/VTE Risk/Contraindication: Risk Factor Score Per Nursin RFS Level Per Nursing on Admit: 4+=Very High Contraindications-Pharm: Other *list below* Other: BEREKET Mckeon Feb 18, 2017 11:42
[2017-02-18] MEDS ORDERED: OLANZapine 5 MG ODT (ZyPREXA ZYDIS) PO PRN (12:00)
[2017-02-18] MEDS ORDERED: DIVALPROX SPRINKLE 125 MG (DEPAKOTE) CAP PO PRN (12:00)
[2017-02-18] MEDS: CATHETER FLUSH 10 ML SYR IV PRN ×2 (18:04→18:57)
[2017-02-19 04:00] VITALS: BP 152/70
[2017-02-19] MEDS ORDERED: TROUGH ORDER-PHARMACY XX ONE (05:00)
[2017-02-19 05:20] LABS: BASOPHILS % (AUTO) 0 % (0-10); EOSINOPHILS # (AUTO) 0.3 10^3/uL (0.0-0.3); EOSINOPHILS % (AUTO) 4 % (0-10); LYMPHOCYTES # (AUTO) 1.5 X 10^3 (1.0-4.0); LYMPHOCYTES % (AUTO) 18 % (12-44); MEAN CORPUSCULAR HEMOGLOBIN 28 PG (25-34); MEAN CORPUSCULAR HGB CONC 32 G/DL (32-36); MEAN CORPUSCULAR VOLUME 87 FL (80-99); MEAN PLATELET VOLUME 8.2 FL (7.4-10.4); MONOCYTES # (AUTO) 0.9 X 10^3 (0.0-1.0); MONOCYTES % (AUTO) 10 % (0-12); NEUTROPHILS # (AUTO) 5.7 X 10^3 (1.8-7.8); NEUTROPHILS % (AUTO) 68 % (42-75); PLATELET COUNT 394 10^3/uL (130-400); RED BLOOD COUNT 3.22 10^6/uL (4.35-5.85); RED CELL DISTRIBUTION WIDTH 15.8 % (10.0-14.5); WHITE BLOOD COUNT 8.4 10^3/uL (4.3-11.0)
[2017-02-19 05:35] LABS: ALANINE AMINOTRANSFERASE 24 U/L (0-55); ALBUMIN 3.2 GM/DL (3.2-4.5); ANION GAP 13 MMOL/L (5-14); ASPARTATE AMINO TRANSFERASE 15 U/L (5-34); BILIRUBIN,TOTAL 0.3 MG/DL (0.1-1.0); BLOOD UREA NITROGEN 10 MG/DL (7-18); BUN/CREATININE RATIO 16; CARBON DIOXIDE 21 MMOL/L (21-32); CHLORIDE 102 MMOL/L (98-107); CREATININE SERUM 0.63 MG/DL (0.60-1.30); GFR ESTIMATED > 60; GLUCOSE 110 MG/DL (70-105); POTASSIUM 4.5 MMOL/L (3.6-5.0); SODIUM 136 MMOL/L (135-145); TOTAL PROTEIN 5.2 GM/DL (6.4-8.2)
[2017-02-19] MEDS: VANCOMYCIN 1500 MG/NS 500 ML IVPB IV SCH ×2 (06:15)
[2017-02-19] MEDS: PANTOPRAZOLE 20 MG TABLET (PROTONIX) PO SCH (06:44)
[2017-02-19] MEDS: KCL 20 MEQ TAB (K-DUR) PO SCH ×2 (06:44→17:27)
[2017-02-19] MEDS: VANCOMYCIN INJECTION 1,250 MG in NS (IVPB) 250 ML IV SCH ×2 (07:58→20:46)
[2017-02-19] MEDS: DOCUSATE SODIUM 100 MG (COLACE) CAP PO SCH (07:59)
[2017-02-19] MEDS: HYDROcodone/APAP 7.5 MG/325 MG (LORTAB, LORCET PLUS) TABLET PO PRN ×3 (07:59→17:27)
[2017-02-19] MEDS: LACTULOSE SYRUP 10GM/15ML (ENULOSE) 30ML UDC PO SCH ×2 (08:00→20:46)
[2017-02-19 08:54] VITALS: BP 166/93
[2017-02-19] MEDS: cefTRIAXone INJECTION 1,000 MG in NS (IVPB) 50 ML IV SCH (09:44)
[2017-02-19] MEDS: amLODIPine 5 MG (NORVASC) TAB PO SCH (09:44)
--- NOTE | 2017-02-19 11:49 | Progress Note-Hospitalist ---
Progress Note HPI/CC on Admission The patient is a 81-year-old white female referred to the hospitalist service by a nurse practitioner in the [facility] emergency room. She reported that the patient had a certain degree of dementia and had recently been placed in a [place] [facility]. She had a previous history of urinary tract infections and appeared to have one at their evaluation. She had been seeing Dr. Nunes from the cancer clinic relative to a breast cancer with previous left mastectomy. She had recently been complaining of pain in the back. After considerable searching of other resources I was able to find a CT chest and abdomen report from 02/07 which showed a 20 percent compression fracture at the level of T12 with concern for a lytic lesion as from breast cancer. At this point information seemed to pour in. She was to have had an appointment with Dr. Philip Sandhu who is a spine surgeon at the [address] in [place]. The consideration was to be for kyphoplasty and biopsy. The CT scan report voiced concern over the possibility of retropulsion of a fragment into the spinal canal and suggested MRI with and without contrast. These findings were discussed with the patient's daughter by telephone. She voiced concern over the pain her mother was suffering but also the recent at rather marked increase in her memory and confusion problems Progress Notes/Assess & Plan Date Seen 02/19/17 Time Seen by Provider: 11:00 Diagonsis/Assessment & Plan Patient having improved pain since increased Fentanyl patch and receiving Hydrocodone now Updated daughter on the results that are still pending. Had confusion and agitation 2 nights ago which appears to be improved Was at [facility] in [facility] and the daughter does not wish to return her there and wants to move her the [facility] in [place] closer to doctors. Still on Vanc and Rocephin empirically pending more culture results AFVSS, Pleasant, O x 1 poor recall, confused,in no distress from pain, in bed RRR, CTAB no edema Laboratory Tests 02/19/17 05:06 Assessment: Confusion with UTI and compression fracture to spine T12 s/p laminectomy but no evidence of tumor or abscess as suggested by MRI Cx pending and placed on abx empirically but bone biopsy required Monday since all cultures are negative and lipomatosis noted in OR so suspected infection versus tumor and the procedure was required due to severity of her pain and I cannot resolve this pain unless I know what the source is and then if it is cancer will have kyphoplasty to resolve the pain and DC as she is requesting back to [facility] if this is indeed what she wants but DPOA approved the procedure. Breast cancer on treatment Dementia severe- daughter refuses Haldol for agitation so DC and place on Depakote and other options if needed HTN GERD UCx Proteus sensitive to Ampicillin Plan: Poor prognosis PT Pain meds Empiric abx Bone biopsy results hopefully tomorrow Difficult to manage DPOA expectations May need midline if needs IV abx 6 weeks Lovenox for DVT Px KIA MCHUGH DO Feb 19, 2017 11:49
--- NOTE | 2017-02-19 14:56 | Progress Note (SOAP) ---
Subjective Date Seen by Provider: Feb 19, 2017 Time Seen by Provider: 08:30 Subjective/Events-last exam KATIA at 0830 this AM. Patient was lucid and daughter at bedside. She c/o some johan buttock burning. Denies radiating leg pain. She seems to be clinically improving. She was OOB to chair yesterday. Questions were answered. Objective Exam Vital Signs Date Time Temp Pulse Resp B/P (MAP) Pulse Ox O2 Delivery O2 Flow Rate FiO2 02/19/17 08:54 97.5 96 20 166/93 98 Nasal Cannula 2.00 02/19/17 08:00 Room Air 02/19/17 07:17 Nasal Cannula 2.00 02/19/17 04:00 97.8 95 20 152/70 85 Nasal Cannula 2.00 02/18/17 23:48 98.7 87 20 143/85 100 Nasal Cannula 2.00 02/18/17 20:15 Room Air 02/18/17 19:04 99.1 76 18 174/74 100 Nasal Cannula 2.00 02/18/17 18:57 98.4 02/18/17 18:48 2.00 02/18/17 16:58 98.4 86 16 159/70 99 Nasal Cannula 2.00 I & O 02/19/17 07:00 Intake Total 2937 ml Output Total 21 ml Balance 2916 ml Capillary Refill : Less Than 3 Seconds General Appearance: No Apparent Distress Results Lab Laboratory Tests 02/19/17 05:06: White Blood Count 8.4, Red Blood Count 3.22L, Hemoglobin 9.0L, Hematocrit 28L, Mean Corpuscular Volume 87, Mean Corpuscular Hemoglobin 28, Mean Corpuscular Hemoglobin Concent 32, Red Cell Distribution Width 15.8H, Platelet Count 394, Mean Platelet Volume 8.2, Neutrophils (%) (Auto) 68, Lymphocytes (%) (Auto) 18, Monocytes (%) (Auto) 10, Eosinophils (%) (Auto) 4, Basophils (%) (Auto) 0, Neutrophils # (Auto) 5.7, Lymphocytes # (Auto) 1.5, Monocytes # (Auto) 0.9, Eosinophils # (Auto) 0.3, Basophils # (Auto) 0.0, Sodium Level 136, Potassium Level 4.5, Chloride Level 102, Carbon Dioxide Level 21, Anion Gap 13, Blood Urea Nitrogen 10, Creatinine 0.63, Estimat Glomerular Filtration Rate > 60, BUN/ Creatinine Ratio 16, Glucose Level 110H, Calcium Level 9.0, Total Bilirubin 0.3 , Aspartate Amino Transf (AST/SGOT) 15, Alanine Aminotransferase (ALT/SGPT) 24, Alkaline Phosphatase 88, Total Protein 5.2L, Albumin 3.2, Vancomycin Level Trough 20.0 Microbiology 02/15/17 MRSA Screen - Final, Complete MRSA not isolated 02/17/17 Mycobacterial Culture - Final, Complete Assessment/Plan Assessment/Plan Assess & Plan/Chief Complaint ASSESSMENT: s/p T12-L4 laminectomy suspect epidural lipomatosis over abscess based on intraoperative findings and lack of kigna pus PLAN: continue abx and monitor for improvement await CT biopsy results DVT prophy: SCDs plan to d/c when ok with medicine d/c drain today Final Diagnosis epidural lipomatosis Clinical Quality Measures DVT/VTE Risk/Contraindication: Risk Factor Score Per Nursin RFS Level Per Nursing on Admit: 4+=Very High Contraindications-Pharm: Other *list below* Other: aurgery planned CHRISTIAN AGUILAR DO Feb 19, 2017 14:55
[2017-02-19 16:28] VITALS: BP 177/80
[2017-02-19] MEDS: ENOXAPARIN 40 MG/0.4 ML (LOVENOX) SYR SC SCH (17:32)
[2017-02-20] VITALS: BP 126/71
[2017-02-20] MEDS: KCL 20 MEQ TAB (K-DUR) PO SCH ×2 (06:32→16:45)
[2017-02-20] MEDS: PANTOPRAZOLE 20 MG TABLET (PROTONIX) PO SCH (06:32)
[2017-02-20] MEDS ORDERED: TROUGH ORDER-PHARMACY XX NR (07:00)
[2017-02-20 07:25] LABS: BASOPHILS # (AUTO) 0.1 10^3/uL (0.0-0.1); BASOPHILS % (AUTO) 1 % (0-10); EOSINOPHILS # (AUTO) 0.3 10^3/uL (0.0-0.3); EOSINOPHILS % (AUTO) 4 % (0-10); LYMPHOCYTES # (AUTO) 1.3 X 10^3 (1.0-4.0); LYMPHOCYTES % (AUTO) 16 % (12-44); MEAN CORPUSCULAR HEMOGLOBIN 28 PG (25-34); MEAN CORPUSCULAR HGB CONC 32 G/DL (32-36); MEAN CORPUSCULAR VOLUME 87 FL (80-99); MEAN PLATELET VOLUME 8.3 FL (7.4-10.4); MONOCYTES # (AUTO) 0.9 X 10^3 (0.0-1.0); MONOCYTES % (AUTO) 12 % (0-12); NEUTROPHILS # (AUTO) 5.3 X 10^3 (1.8-7.8); NEUTROPHILS % (AUTO) 67 % (42-75); PLATELET COUNT 379 10^3/uL (130-400); RED BLOOD COUNT 3.26 10^6/uL (4.35-5.85); RED CELL DISTRIBUTION WIDTH 15.7 % (10.0-14.5); WHITE BLOOD COUNT 7.8 10^3/uL (4.3-11.0)
[2017-02-20 07:43] LABS: ALANINE AMINOTRANSFERASE 27 U/L (0-55); ALBUMIN 3.2 GM/DL (3.2-4.5); ANION GAP 10 MMOL/L (5-14); ASPARTATE AMINO TRANSFERASE 17 U/L (5-34); BILIRUBIN,TOTAL 0.4 MG/DL (0.1-1.0); BLOOD UREA NITROGEN 8 MG/DL (7-18); BUN/CREATININE RATIO 12; CALCIUM 8.9 MG/DL (8.5-10.1); CARBON DIOXIDE 25 MMOL/L (21-32); CHLORIDE 101 MMOL/L (98-107); CREATININE SERUM 0.67 MG/DL (0.60-1.30); GFR ESTIMATED > 60; GLUCOSE 104 MG/DL (70-105); SODIUM 136 MMOL/L (135-145); TOTAL PROTEIN 5.8 GM/DL (6.4-8.2)
[2017-02-20 08:00] VITALS: BP 136/81
--- NOTE | 2017-02-20 09:42 | Progress Note-Hospitalist ---
Progress Note HPI/CC on Admission The patient is a 81-year-old white female referred to the hospitalist service by a nurse practitioner in the [facility] emergency room. She reported that the patient had a certain degree of dementia and had recently been placed in a [place] [facility]. She had a previous history of urinary tract infections and appeared to have one at their evaluation. She had been seeing Dr. Nunes from the cancer clinic relative to a breast cancer with previous left mastectomy. She had recently been complaining of pain in the back. After considerable searching of other resources I was able to find a CT chest and abdomen report from 02/07 which showed a 20 percent compression fracture at the level of T12 with concern for a lytic lesion as from breast cancer. At this point information seemed to pour in. She was to have had an appointment with Dr. Philip Sandhu who is a spine surgeon at the [address] in [place]. The consideration was to be for kyphoplasty and biopsy. The CT scan report voiced concern over the possibility of retropulsion of a fragment into the spinal canal and suggested MRI with and without contrast. These findings were discussed with the patient's daughter by telephone. She voiced concern over the pain her mother was suffering but also the recent at rather marked increase in her memory and confusion problems Progress Notes/Assess & Plan Date Seen 02/20/17 Time Seen by Provider: 09:15 Diagonsis/Assessment & Plan Patient having improved pain since increased Fentanyl patch and receiving Hydrocodone Awaited bone biopsy results to complete this note and it appears there is no evidence of any tumor or abscess of infection per pathology when I updated her on the case and I updated Dr Sandhu service because it appears this is a normal compression fracture that needs kyphoplasty so if that could be arranged we could dispo to [place] after that is completed I had midline placed in prep for IV abx at CT but now it appears we may not need them Still on Vanc and Rocephin empirically pending the final plan per spine surgery PT reports that she has so much pain when she is out of bed she can't work with her Poor prognosis overall due to significant dementia AFVSS, Pleasant, O x 1 poor recall, confused,in no distress from pain, in bed RRR, CTAB no edema Laboratory Tests 02/20/17 07:15 Assessment: Confusion with UTI and compression fracture to spine T12 s/p laminectomy but no evidence of tumor or abscess as suggested by MRI Cx pending and placed on abx empirically but bone biopsy required Monday since all cultures are negative and lipomatosis noted in OR so suspected infection versus tumor and the procedure was required due to severity of her pain and I cannot resolve this pain unless I know what the source is and then if it is cancer will have kyphoplasty to resolve the pain and DC as she is requesting back to [facility] on [facility]osp[facility] if this is indeed what she wants but DPOA approved the procedure but now the bone biopsy showed no evidence of osteomyelitis or infection or tumor so likely will benefit from kyphoplasty and DC abx if spine surgery ok with the plan Breast cancer on treatment Dementia severe- daughter refuses Haldol for agitation so DC and place on Depakote and other options if needed HTN GERD UCx Proteus sensitive to Ampicillin Plan: Poor prognosis remains regardless due to dementia PT if able to move Pain meds Empiric abx until spine surgery makes final decision Difficult to manage DPOA expectations s/p midline if needs IV abx 6 weeks if spine surgery requires Lovenox for DVT Px but will need to hold for procedure KIA MCHUGH DO Feb 20, 2017 09:42
[2017-02-20] MEDS: cefTRIAXone INJECTION 1,000 MG in NS (IVPB) 50 ML IV SCH (09:47)
[2017-02-20] MEDS: LACTULOSE SYRUP 10GM/15ML (ENULOSE) 30ML UDC PO SCH ×2 (09:49→20:42)
[2017-02-20] MEDS: DOCUSATE SODIUM 100 MG (COLACE) CAP PO SCH (09:49)
[2017-02-20] MEDS ORDERED: VANCOMYCIN 1250 MG/NS 250 ML IVPB IV SCH ×2 (10:00)
[2017-02-20] MEDS ORDERED: VANCOMYCIN INJECTION 1,000 MG in NS (IVPB) 250 ML IV SCH (10:00)
[2017-02-20] MEDS: fentaNYL INJECTION 100 MCG/2 ML AMP IVP PRN (10:09)
[2017-02-20] MEDS: amLODIPine 5 MG (NORVASC) TAB PO SCH (10:12)
[2017-02-20] MEDS: HYDROcodone/APAP 7.5 MG/325 MG (LORTAB, LORCET PLUS) TABLET PO PRN (10:28)
[2017-02-20] MEDS: DIAZEPAM 2 MG (VALIUM) TAB PO PRN (10:28)
--- NOTE | 2017-02-20 10:37 | Physical Therapy Daily Note ---
PT Daily Note-Current Subjective RN present. Patient states, "Don't put that saddle on me. I don't like it." ( back brace) Pain Numeric Pain Scale: 10-Worst Possible Pain Location: Medial, Upper, Lower Location Body Site: Back Pain Description: Acute Comment: FLACC/patient yelling and crying Mental Status Patient Orientation: Confused Attachments: Oxygen, IV Transfers Functional [place] Measure 0=Not Assessed/NA 4=Minimal Assistance 1=Total Assistance 5=Supervision or Setup 2=Maximal Assistance 6=Modified [place] 3=Moderate Assistance 7=Complete IndependenceIRFPAI Quality Coding Scale 6 Independent with activity with or without an assistive device 5 Patient requires set up or clean up by helper. Patient completes activity by themselves 4 Supervision or touching assist (CGA). Badin provide cues , steadying assist 3 The helper provides less than half the effort to complete the activity 2 The helper provides more than half the effort to complete the activity 1 Dependent. The helper does all the effort to complete an activity 7 Patient refused to complete or attempt activity 9 The patient did not perform the activity before the current illness or injury 88 Not attempted due to Medical conditions or safety concerns Transfers (B, C, W/C) (FIM): 2 Scootin Rollin Supine to/from Sit: 2 Sit to/from Stand: 2 Bed to/from Chair: 2 max assist with all mobility with patient resisting and yelling/crying in pain during treatment. Dependent assist to kale back brace. Assessment Patient is up in recliner and crying due to pain. RN issued pain medication during treatment. PT Fpc Goals Fpc Goals PT Fpc Goals Time Frame: Feb 24, 2017 Transfers (B,C,W/C) (FIM): 4 Gait (FIM): 1 Gait distance (FIM): 1=up to 49 ft Distance: 45' Gait Level of Assist: 4 Gait Assistive Device: FWW PT Plan Treatment/Plan Treatment Plan: Continue Plan of Care Treatment Plan: Bed Mobility, Education, Functional Activity Deana, Functional Strength, Gait, Safety, Therapeutic Exercise, Transfers Treatment Duration: Feb 24, 2017 Frequency: Daily Estimated Hrs Per Day: .25 hour per day Patient and/or Family Agrees t: Yes Time/GCodes Time In: 1000 Time Out: 1015 Total Billed Treatment Time: 15 Total Billed Treatment 1 visit FA 15 min ONELIA JAMES PT Feb 20, 2017 10:37
--- NOTE | 2017-02-20 14:26 | Occupational Ther Daily Note ---
OT Current Status-Daily Note Subjective Pt alert, lying on side in bed. Pt agreed to therapy. No c/o pain at this time. Pt described getting out of bed earlier in the day and how she had to use a saddle when she got up. When asked if the saddle was her back brace she responded yes. Mental Status/Objective Patient Orientation: Person Functional [place] Measure 0=Not Assessed/NA 4=Minimal Assistance 1=Total Assistance 5=Supervision or Setup 2=Maximal Assistance 6=Modified [place] 3=Moderate Assistance 7=Complete [place] ADL-Treatment CHARLES offered for pt to complete grooming or UE exercises in bed, pt did not acknowledge question. Pt continued to talk about earlier in the day. Pt then asked to change hospital gown and her top sheet that she spilled water on. Pt was able to thread arms through hospital gown sleeves and lift neck of gown over head. After therapy, pt lying in bed with call light/phone in reach. All needs met in room. OT Short Term Goals Short Term Goals 1=Demonstrate adherence to instructed precautions during ADL tasks. 2=Patient will verbalize/demonstrate understanding of assistive devices/ modifications for ADL. 3=Patient will improve strength/tolerance for activity to enable patient to perform ADL's. OT Staff Auditor Goals Staff Auditor Goals Time Frame: Feb 24, 2017 Eating (FIM): 6 Grooming(FIM): 5 Bathing(FIM): 3 Upper Body Dressing(FIM): 5 Lower Body Dressing(FIM): 4 Toileting(FIM): 3 Toilet/Commode Transfer(FIM): 4 Shower Transfer(FIM): 4 Additional Goals: 2-Verbalize Understanding, 3-ImproveStrength/Deana 1=Demonstrate adherence to instructed precautions during ADL tasks. 2=Patient will verbalize/demonstrate understanding of assistive devices/ modifications for ADL. 3=Patient will improve strength/tolerance for activity to enable patient to perform ADL's. OT Education/Plan Problem List/Assessment Pt would benefit from skilled OT to increase her independence in basic self care to allow her to live in the least restrictive environment and decrease caregiver burden Discharge Recommendations Plan/Recommendations: Continue POC Treatment Plan/Plan of Care Patient would benefit from OT for education, treatment and training to promote independence in ADL's, mobility, safety and/or upper extremity function for ADL' s. Plan of Care: ADL Retraining, Functional Mobility, UE Funct Exercise/Act, UE Neuromus Re-Ed/Coord Treatment Duration: Feb 24, 2017 Frequency: Daily Estimated Hrs Per Day: .5 hour per day Agreement: Yes Rehab Potential: Fair Time/GCodes Start Time: 13:45 Stop Time: 14:00 Total Time Billed (hr/min): 15 Billed Treatment Time 1 visit-FA 1 (15 min) DANUTA GONSALEZ Feb 20, 2017 14:26
[2017-02-20 15:55] VITALS: BP 129/62
[2017-02-21] VITALS: BP 141/63
[2017-02-21] MEDS: KCL 20 MEQ TAB (K-DUR) PO SCH ×2 (06:18→17:10)
[2017-02-21] MEDS: PANTOPRAZOLE 20 MG TABLET (PROTONIX) PO SCH (06:18)
[2017-02-21 08:00] VITALS: BP 145/67
[2017-02-21] MEDS: amLODIPine 5 MG (NORVASC) TAB PO SCH (08:39)
[2017-02-21] MEDS: cefTRIAXone INJECTION 1,000 MG in NS (IVPB) 50 ML IV SCH (08:39)
[2017-02-21] MEDS: LACTULOSE SYRUP 10GM/15ML (ENULOSE) 30ML UDC PO SCH ×2 (08:39→20:10)
[2017-02-21] MEDS: DOCUSATE SODIUM 100 MG (COLACE) CAP PO SCH (08:39)
[2017-02-21] MEDS: HYDROcodone/APAP 7.5 MG/325 MG (LORTAB, LORCET PLUS) TABLET PO PRN (09:19)
--- NOTE | 2017-02-21 09:36 | Progress Note-Hospitalist ---
Progress Note HPI/CC on Admission The patient is a 81-year-old white female referred to the hospitalist service by a nurse practitioner in the [facility] emergency room. She reported that the patient had a certain degree of dementia and had recently been placed in a [place] [facility]. She had a previous history of urinary tract infections and appeared to have one at their evaluation. She had been seeing Dr. Nunes from the cancer clinic relative to a breast cancer with previous left mastectomy. She had recently been complaining of pain in the back. After considerable searching of other resources I was able to find a CT chest and abdomen report from 02/07 which showed a 20 percent compression fracture at the level of T12 with concern for a lytic lesion as from breast cancer. At this point information seemed to pour in. She was to have had an appointment with Dr. Philip Sandhu who is a spine surgeon at the [address] in [place]. The consideration was to be for kyphoplasty and biopsy. The CT scan report voiced concern over the possibility of retropulsion of a fragment into the spinal canal and suggested MRI with and without contrast. These findings were discussed with the patient's daughter by telephone. She voiced concern over the pain her mother was suffering but also the recent at rather marked increase in her memory and confusion problems Progress Notes/Assess & Plan Date Seen 02/21/17 Time Seen by Provider: 09:00 Diagonsis/Assessment & Plan Patient having improved pain since increased Fentanyl patch and receiving Hydrocodone Had multiple conversations with Pathology Dr Valadez and Dr Sandhu spine service yesterday and bone biopsy resulted in no evidence of cancer and no evidence of osteomyelitis or infection so abx were DC and now arranging for skilled therapy at [facility] Nunes and Gris VICTOR conferred with daughter and she will choose [facility] and DC as planned No surgery can be done with kyphoplasty due to bone fragment that can be pushed into the spinal cord and cause paralysis at T12. AFVSS, Pleasant, O x 2, poor recall, confused, in bed RRR, CTAB no edema Assessment: Confusion with UTI and compression fracture to spine T12 s/p laminectomy but no evidence of tumor or abscess as suggested by MRI Cx pending and placed on abx empirically but bone biopsy required Monday since all cultures are negative and lipomatosis noted in OR so suspected infection versus tumor and the procedure was required due to severity of her pain and I cannot resolve this pain unless I know what the source is and then if it is cancer will have kyphoplasty to resolve the pain and DC as she is requesting back to [facility] if this is indeed what she wants but DPOA approved the procedure but now the bone biopsy showed no evidence of osteomyelitis or infection or tumor and kyphoplasty not an option due to bone fragment that could move and paralyze so needs NHP Breast cancer on treatment Dr Nunes following Dementia severe- daughter refuses Haldol for agitation so DC and place on Depakote and other options if needed HTN GERD UCx Proteus sensitive to Ampicillin s/p treatment now DC Plan: Poor prognosis remains regardless due to dementia PT if able to move Pain meds DC Empiric abx Difficult to manage DPOA expectations Lovenox for DVT Px KIA MCHUGH DO Feb 21, 2017 09:36
[2017-02-21] MEDS ORDERED: DVL125C PO (09:41)
[2017-02-21] MEDS ORDERED: HYDR-3816 PO (09:41)
[2017-02-21] MEDS ORDERED: LACT20SO2 PO (09:41)
[2017-02-21] MEDS ORDERED: FENT1PAT9 TD (09:41)
[2017-02-21] MEDS ORDERED: ENOX40DI8 SC (09:41)
[2017-02-21] MEDS ORDERED: ALPR0.25 PO (09:41)
--- NOTE | 2017-02-21 09:43 | Discharge Inst-Skilled Nursing ---
Discharge [facility]-Skilled NF Chief Complaint The patient is a 81-year-old white female referred to the hospitalist service by a nurse practitioner in the [facility] emergency room. She reported that the patient had a certain degree of dementia and had recently been placed in a [place] half-way. She had a previous history of urinary tract infections and appeared to have one at their evaluation. She had been seeing Dr. Nunes from the cancer clinic relative to a breast cancer with previous left mastectomy. She had recently been complaining of pain in the back. After considerable searching of other resources I was able to find a CT chest and abdomen report from 02/07 which showed a 20 percent compression fracture at the level of T12 with concern for a lytic lesion as from breast cancer. At this point information seemed to pour in. She was to have had an appointment with Dr. Philip Sandhu who is a spine surgeon at the [address] in [place]. The consideration was to be for kyphoplasty and biopsy. The CT scan report voiced concern over the possibility of retropulsion of a fragment into the spinal canal and suggested MRI with and without contrast. These findings were discussed with the patient's daughter by telephone. She voiced concern over the pain her mother was suffering but also the recent at rather marked increase in her memory and confusion problems Patient Instructions Patient Problems: T12 compression fracture Severe dementia Chronic severe debility h/o breast cancer Goal: Strengthen Consult/Follow Up/Orders Follow Up Appt.: PCP for ID Skilled NF Admit to: Certification (SNF) I certify that SNF services are required to be given on an inpatient basis because of the above named patient's need for detention care on a continuing basis for the conditions(s) for which he/she was receiving inpatient hospital services prior to his/her transfer to the SNF. Shelter Facility Order: Nursing Services, Produce Specialist-Evaluate & Treat, Physical Therapy-Evaluate & Treat Discharge Diet: No Restrictions New & Resume Previous Orders New Medications: Divalproex Sodium (Depakote Sprinkle) 125 Mg Cap 125 MG PO Q8H PRN for Confusion, agitation for 30 Days, CAP Enoxaparin Sodium (Enoxaparin Sodium) 40 Mg/0.4 Ml Syringe 40 MG SC Q24H for 14 Days, SYRINGE Fentanyl (Fentanyl Patch 50 MCG) 1 Each Patch.td72 50 MCG TD Q72H, #10 PATCH Lactulose (Lactulose) 20 Gm/30 Ml Solution 10 GM PO BID for 30 Days, EA Continued Medications: Acetaminophen (Acetaminophen) 500 Mg Tablet 500-1000 MG PO Q4H PRN for PAIN-MILD, TAB Alprazolam (Xanax) 0.25 Mg Tablet 0.25 MG PO TID PRN for ANXIETY, #30 TAB (This prescription has been renewed) Aspirin (Aspir 81) 81 Mg Tablet.dr 81 MG PO DAILY, TAB Docusate Sodium (Colace) 100 Mg Capsule 100 MG PO DAILY, CAP Hydrocodone/Acetaminophen (Hydrocodon-Acetaminoph 7.5-325) 1 Each Tablet 1 TAB PO Q8H PRN for PAIN-MODERATE, #50 TAB (This prescription has been renewed) Letrozole (Letrozole) 2.5 Mg Tablet 2.5 MG PO DAILY, TAB Omeprazole (Omeprazole) 20 Mg Tablet.dr 20 MG PO DAILY, TAB Ondansetron (Ondansetron Odt) 4 Mg Tab.rapdis 4 MG PO Q6H PRN for NAUSEA/VOMITING-1ST LINE, TAB Polyethylene Glycol 3350 (Miralax) 17 Gm Powd.pack 17 GM PO DAILY PRN for CONSTIPATION-2ND LINE, EACH Discontinued Medications: Hydrochlorothiazide (Hydrochlorothiazide) 12.5 Mg Capsule 12.5 MG PO DAILY, CAP Tramadol HCl (Tramadol HCl) 50 Mg Tablet 100 MG PO Q8H, TAB TAKES 2 (50MG) TABLETS Caitie Messer Feb 21, 2017 09:42 Pneu Vac Indicated: Yes CAITIE MESSER DO Feb 21, 2017 09:43
--- NOTE | 2017-02-21 10:55 | Physical Therapy Daily Note ---
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 Pain Numeric Pain Scale: 10-Worst Possible Pain Location: Medial, Upper, Lower Location Body Site: Back Comment: FLACC Mental Status Patient Orientation: Confused Transfers Functional [place] Measure 0=Not Assessed/NA 4=Minimal Assistance 1=Total Assistance 5=Supervision or Setup 2=Maximal Assistance 6=Modified [place] 3=Moderate Assistance 7=Complete IndependenceIRFPAI Quality Coding Scale 6 Independent with activity with or without an assistive device 5 Patient requires set up or clean up by helper. Patient completes activity by themselves 4 Supervision or touching assist (CGA). [place] provide cues , steadying assist 3 The helper provides less than half the effort to complete the activity 2 The helper provides more than half the effort to complete the activity 1 Dependent. The helper does all the effort to complete an activity 7 Patient refused to complete or attempt activity 9 The patient did not perform the activity before the current illness or injury 88 Not attempted due to Medical conditions or safety concerns Transfers (B, C, W/C) (FIM): 3 Sit to/from Stand: 3 Bed to/from Chair: 4 When in stand, patient is CGA with mobility with use of FWW. Patient continues to yell in pain and appears to not like the back brace. Gait Training Gait (FIM): 1 Distance (FIM): 1=up to 49 ft Distance: 10' Gait Level of Assist: 4 Gait Persons Needed: 1 Gait Assistive Device: FWW functional with FWW; patient self limites Assessment Patient is up in recliner with needs met. Patient appears to be fine until PT requests patient to perform activity. SW and physician notified. PT Structural Metal Worker Goals Structural Metal Worker Goals PT Long-Term Goals Time Frame: Feb 24, 2017 Transfers (B,C,W/C) (FIM): 4 Gait (FIM): 1 Gait distance (FIM): 1=up to 49 ft Distance: 45' Gait Level of Assist: 4 Gait Assistive Device: FWW PT Plan Treatment/Plan Treatment Plan: Continue Plan of Care Treatment Plan: Bed Mobility, Education, Functional Activity Deana, Functional Strength, Gait, Safety, Therapeutic Exercise, Transfers Treatment Duration: Feb 24, 2017 Frequency: Daily Estimated Hrs Per Day: .25 hour per day Patient and/or Family Agrees t: Yes Time/GCodes Time In: 940 Time Out: 955 Total Billed Treatment Time: 15 Total Billed Treatment 1 visit FA 15 min ONELIA JAMES PT Feb 21, 2017 10:55
[2017-02-21] MEDS: fentaNYL PATCH 50 MCG (DURAGESIC) TD SCH (11:06)
[2017-02-21] MEDS: FENTANYL PATCH REMOVAL TP SCH (11:06)
--- NOTE | 2017-02-21 13:06 | Occupational Ther Daily Note ---
OT Current Status-Daily Note Subjective Pt sitting in chair with daughter present, agrees to treatment. Pt states she is having little pain as long as she is sitting still. Mental Status/Objective Functional [place] Measure 0=Not Assessed/NA 4=Minimal Assistance 1=Total Assistance 5=Supervision or Setup 2=Maximal Assistance 6=Modified [place] 3=Moderate Assistance 7=Complete [place] ADL-Treatment Pt completed grooming tasks while seated in chair. Pt brushed teeth with set up and increased time. Pt washed face with SBA. Combed hair with SBA and increased time. Skilled cues required for sequencing and task completion. Increased time requires for all ADL tasks. Pt sitting in chair with needs met and daughter present after session. Grooming (FIM): 5 OT Short Term Goals Short Term Goals 1=Demonstrate adherence to instructed precautions during ADL tasks. 2=Patient will verbalize/demonstrate understanding of assistive devices/ modifications for ADL. 3=Patient will improve strength/tolerance for activity to enable patient to perform ADL's. OT Pourer Off Goals Pourer Off Goals Time Frame: Feb 24, 2017 Eating (FIM): 6 Grooming(FIM): 5 Bathing(FIM): 3 Upper Body Dressing(FIM): 5 Lower Body Dressing(FIM): 4 Toileting(FIM): 3 Toilet/Commode Transfer(FIM): 4 Shower Transfer(FIM): 4 Additional Goals: 2-Verbalize Understanding, 3-ImproveStrength/Deana 1=Demonstrate adherence to instructed precautions during ADL tasks. 2=Patient will verbalize/demonstrate understanding of assistive devices/ modifications for ADL. 3=Patient will improve strength/tolerance for activity to enable patient to perform ADL's. OT Education/Plan Problem List/Assessment Pt would benefit from skilled OT to increase her independence in basic self care to allow her to live in the least restrictive environment and decrease caregiver burden Discharge Recommendations Plan/Recommendations: Continue POC Treatment Plan/Plan of Care Patient would benefit from OT for education, treatment and training to promote independence in ADL's, mobility, safety and/or upper extremity function for ADL' s. Plan of Care: ADL Retraining, Functional Mobility, UE Funct Exercise/Act, UE Neuromus Re-Ed/Coord Treatment Duration: Feb 24, 2017 Frequency: Daily Estimated Hrs Per Day: .5 hour per day Agreement: Yes Rehab Potential: Fair Time/GCodes Start Time: 10:57 Stop Time: 11:21 Total Time Billed (hr/min): 24 Billed Treatment Time 1 visit, ADLx2(24minutes) SANDY FIORE OT Feb 21, 2017 13:06
[2017-02-21 16:00] VITALS: BP 149/67
[2017-02-21] MEDS: ENOXAPARIN 40 MG/0.4 ML (LOVENOX) SYR SC SCH (17:11)
[2017-02-21] MEDS: diphenhydrAMINE 50 MG/ML INJ (BENADRYL) IM PRN (21:27)
[2017-02-22] VITALS: BP 152/69
[2017-02-22] MEDS: PANTOPRAZOLE 20 MG TABLET (PROTONIX) PO SCH (06:01)
[2017-02-22] MEDS: KCL 20 MEQ TAB (K-DUR) PO SCH (06:01)
[2017-02-22] MEDS: diphenhydrAMINE 50 MG/ML INJ (BENADRYL) IM PRN (07:04)
[2017-02-22] MEDS: HYDROcodone/APAP 7.5 MG/325 MG (LORTAB, LORCET PLUS) TABLET PO PRN (07:05)
[2017-02-22 08:00] VITALS: BP 147/67
[2017-02-22] MEDS ORDERED: TROUGH ORDER-PHARMACY XX ONE (09:00)
--- NOTE | 2017-02-22 09:00 | Physical Therapy Daily Note ---
PT Daily Note-Current Subjective Patient in bed sleeping pre tx, agrees to PT, has pain of 10/10 in back. Appearance Patient in recliner post tx with nurse call, phone, tray, daughter in the room. Mental Status Patient Orientation: Confused TLSO Transfers Functional [place] Measure 0=Not Assessed/NA 4=Minimal Assistance 1=Total Assistance 5=Supervision or Setup 2=Maximal Assistance 6=Modified [place] 3=Moderate Assistance 7=Complete IndependenceIRFPAI Quality Coding Scale 6 Independent with activity with or without an assistive device 5 Patient requires set up or clean up by helper. Patient completes activity by themselves 4 Supervision or touching assist (CGA). [place] provide cues , steadying assist 3 The helper provides less than half the effort to complete the activity 2 The helper provides more than half the effort to complete the activity 1 Dependent. The helper does all the effort to complete an activity 7 Patient refused to complete or attempt activity 9 The patient did not perform the activity before the current illness or injury 88 Not attempted due to Medical conditions or safety concerns Transfers (B, C, W/C) (FIM): 2 Scootin Rollin Supine to/from Sit: 2 Sit to/from Stand: 3 Bed to/from Chair: 3 Cues for safety and positioning, patient often resists movement, trained on a log roll. Gait Training Gait (FIM): 1 Distance: 5' Gait Level of Assist: 4 Gait Persons Needed: 1 Gait Assistive Device: FWW Needs assist with guiding the walker and cues for safety and positioning. Treatments bed mobility and transfers, ambulation Assessment Current Status: Fair Progress improving mobility, patient was pretty agitated after the transfers and ambulation, no exercises were performed at this time PT Laborer Vineyard Goals Laborer Vineyard Goals PT Laborer Vineyard Goals Time Frame: Feb 24, 2017 Transfers (B,C,W/C) (FIM): 4 Gait (FIM): 1 Gait distance (FIM): 1=up to 49 ft Distance: 45' Gait Level of Assist: 4 Gait Assistive Device: FWW PT Plan Problem List Problem List: Activity Tolerance, Functional Strength, Safety, Balance, Gait, Transfer, Bed Mobility, ROM Treatment/Plan Treatment Plan: Continue Plan of Care Treatment Plan: Bed Mobility, Education, Functional Activity Deana, Functional Strength, Gait, Safety, Therapeutic Exercise, Transfers Treatment Duration: Feb 24, 2017 Frequency: Daily Estimated Hrs Per Day: .25 hour per day Patient and/or Family Agrees t: Yes Safety Risks/Education Patient Education: Gait Training, Transfer Techniques, Correct Positioning, Reviewed Don/Doff Brace, Safety Issues Teaching Recipient: Patient Teaching Methods: Demonstration, Discussion Response to Teaching: Reinforcement Needed Patient is dependent with don/doff brace Time/GCodes Time In: 830 Time Out: 850 Total Billed Treatment Time: 20 Total Billed Treatment 1 visit FA 20' JIL BILLINGS PT Feb 22, 2017 09:00
[2017-02-22] MEDS: DOCUSATE SODIUM 100 MG (COLACE) CAP PO SCH (09:05)
[2017-02-22] MEDS: LACTULOSE SYRUP 10GM/15ML (ENULOSE) 30ML UDC PO SCH (09:05)
[2017-02-22] MEDS: amLODIPine 5 MG (NORVASC) TAB PO SCH (09:05)
--- NOTE | 2017-02-22 10:29 | Discharge Summary-Hospitalist ---
Diagnosis/Chief Complaint Date of Admission Feb 13, 2017 at 16:59 Date of Discharge Discharge Date: Feb 22, 2017 Admission Diagnosis Urinary tract infection. 2.T12 compression fracture rule out metastasis. 3.previous left mastectomy for carcinoma. 4.dementia with increasing confusion. Discharge Diagnosis Patient having improved pain since increased Fentanyl patch and receiving Hydrocodone Had multiple conversations with Pathology Dr Valadez and Dr Sandhu spine service yesterday and bone biopsy resulted in no evidence of cancer and no evidence of osteomyelitis or infection so abx were DC and now arranging for skilled therapy at [facility] Dr Nunes and Gris VICTOR conferred with daughter and she will choose NH and DC as planned No surgery can be done with kyphoplasty due to bone fragment that can be pushed into the spinal cord and cause paralysis at T12. AFVSS, [place], O x 2, poor recall, confused, in bed RRR, CTAB no edema Assessment: Confusion with UTI and compression fracture to spine T12 s/p laminectomy but no evidence of tumor or abscess as suggested by MRI Cx pending and placed on abx empirically but bone biopsy required Monday since all cultures are negative and lipomatosis noted in OR so suspected infection versus tumor and the procedure was required due to severity of her pain and I cannot resolve this pain unless I know what the source is and then if it is cancer will have kyphoplasty to resolve the pain and DC as she is requesting back to [facility] on Hospice if this is indeed what she wants but DPOA approved the procedure but now the bone biopsy showed no evidence of osteomyelitis or infection or tumor and kyphoplasty not an option due to bone fragment that could move and paralyze so needs WAP Breast cancer on treatment Dr Nunes following Dementia severe- daughter refuses Haldol for agitation so DC and place on Depakote and other options if needed HTN GERD UCx Proteus sensitive to Ampicillin s/p treatment now DC Notes from 02/22/17 Patient Interview: Pt was brushing teeth upon interview Pt states that her pain is gradually better, but pt confirms having Hydrocodone this am Physical exam stable. Lungs sound perfect. BMs discussed Pt confirms Dr. Ha as PCP Pt and daughter were assured that Dr. Nunes knows the plan Plan: Poor prognosis remains regardless due to dementia PT if able to move Pain meds DC Empiric abx Difficult to manage DPOA expectations Lovenox for DVT Px DC to be picked up at 1100 Continue pain meds Scribed by Ana Pena under the direct supervision of Dr. Messer. Discharge Summary Discharge Physical Examination Allergies: Coded Allergies: ciprofloxacin (Unverified Allergy, Unknown, 02/13/17) oxycodone (Unverified Allergy, Unknown, 02/13/17) sulfamethoxazole (Unverified Allergy, Unknown, 02/13/17) trimethoprim (Unverified Allergy, Unknown, 02/13/17) Vitals & I&Os Vital Signs Date Time Temp Pulse Resp B/P (MAP) Pulse Ox O2 Delivery O2 Flow Rate FiO2 02/22/17 08:00 98.3 91 16 147/67 95 Room Air 02/20/17 10:38 2.00 Hospital Course Hospital course: Patient had a lengthy hospital course it was initially managed with admission from [place] for back pain that showed compression fracture with UTI and altered mental status. Proteus was on urine culture patient maintain on Rocephin for full treatment during hospital course. MRI showed possibility of abscess formation osteomyelitis per radiology so that was communicated to spine surgery Dr. Sandhu who performed I and D just revealing contained hemorrhage of T12 with no evidence of breast cancer metastasis or osteomyelitis with abscess. She was maintain on vancomycin and Rocephin empirically and cultures remain no growth to date. Due to continued pain and indeterminate source of the compression fracture she underwent a bone biopsy that was uncomplicated and resulted in no growth of bacteria or tumor or evidence of osteomyelitis. Vancomycin and Rocephin were discontinued patient was placed on increased dose of fentanyl patch of 50 g along with hydrocodone for breakthrough pain and maintain on bowel regimen prior to sending to care home for skilled care but poor prognosis regarding comorbidities extreme debility and dementia. She will be admitted under Dr. Ha service the [facility] for skilled care therapy. Labs (last 24 hrs) Microbiology 02/15/17 MRSA Screen - Final, Complete MRSA not isolated 02/17/17 Mycobacterial Culture - Preliminary, Resulted Discharge Home Medications: Active Scripts Active Lactulose 20 Gm/30 Ml Solution 10 Gm PO BID 30 Days Depakote Sprinkle (Divalproex Sodium) 125 Mg Cap 125 Mg PO Q8H PRN 30 Days Fentanyl Patch 50 MCG (Fentanyl) 1 Each Patch.td72 50 Mcg TD Q72H Enoxaparin Sodium 40 Mg/0.4 Ml Syringe 40 Mg SC Q24H 14 Days Hydrocodon-Acetaminoph 7.5-325 (Hydrocodone/Acetaminophen) 1 Each Tablet 1 Tab PO Q8H PRN Xanax (Alprazolam) 0.25 Mg Tablet 0.25 Mg PO TID PRN Reported Ondansetron Odt (Ondansetron) 4 Mg Tab.rapdis 4 Mg PO Q6H PRN Hydrochlorothiazide 12.5 Mg Capsule 12.5 Mg PO DAILY Acetaminophen 500 Mg Tablet 500-1,000 Mg PO Q4H PRN Miralax (Polyethylene Glycol 3350) 17 Gm Powd.pack 17 Gm PO DAILY PRN Letrozole 2.5 Mg Tablet 2.5 Mg PO DAILY Colace (Docusate Sodium) 100 Mg Capsule 100 Mg PO DAILY Aspir 81 (Aspirin) 81 Mg Tablet.dr 81 Mg PO DAILY Omeprazole 20 Mg Tablet.dr 20 Mg PO DAILY Instructions to patient/family Please see electonic discharge instructions given to patient. Clinical Quality Measures DVT/VTE Risk/Contraindication: Risk Factor Score Per Nursin RFS Level Per Nursing on Admit: 4+=Very High Contraindications-Pharm: Other *list below* Other: KIA Bruner DO Feb 22, 2017 10:29
[2017-02-22 12:22] VITALS: BP 147/67
--- NOTE | 2017-02-22 17:46 | CONSULTATION REPORT ---
DATE OF SERVICE: 02/21/2017 The patient is admitted to room 412. IMPRESSION: A 81-year-old female with history of stage I left breast cancer, status post modified radical mastectomy and on adjuvant hormonal therapy with Letrozole. Recently, patient had a fall at home with significant back pain. She was living alone and could not manage by herself and was moved to an assisted care facility. Because of the significant pain, she was brought to the Emergency Room. Prior to this, she had an MRI of her back, which showed a compression fracture of T12 vertebrae. This raised the question of pathologic fracture versus osteoporotic compression fracture. The patient was admitted for pain control and consultation obtained with orthopedic/spine surgery with Dr. Sandhu. This can raise the possibility of an abscess and osteomyelitis versus pathologic compression fracture. Because of this, she was taken to surgery and had drainage, which did not show any evidence of purulent material. Cultures have been negative. She was started on empiric antibiotic initially, which has been stopped. She was not felt to be a candidate for kyphoplasty because of a fragment of the bone, which has retropulsed into the spinal canal. Today she is comfortable in bed and indicated that the pain is getting better. She underwent a biopsy of T12 vertebrae under CT guidance with the preliminary pathology report showing no evidence of metastatic disease. PAST MEDICAL HISTORY: Other than the breast cancer, is significant for hypertension for 25 years. History of hepatitis A in 1972. Osteoarthritis involving the major joints with bilateral knee replacements in the past. History of diverticulosis and hemorrhoids. Basal cell carcinoma removed from her face in the . PRIOR SURGERIES: Include CAROLYN/BSO in 1985 due to fibroids. Cholecystectomy in the early . Right carpal tunnel release and trigger finger surgery in 2002. Hemorrhoidectomy in 2003 and bilateral knee replacement in 2006 and 2007. SOCIAL HISTORY: The patient is and was living by herself near [place], [place]. Recently she was moved to an assisted care facility in [facility]. She had 6 children with a son who due to motor vehicle accident. She has 3 sons and 2 daughters, all of them live close by. 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 No history of tobacco, alcohol or other recreational drug use. FAMILY HISTORY: Significant for a grandmother who was diagnosed with breast cancer, as well as an abdominal malignancy at an elderly age. Grandfather with throat cancer. Sister with breast cancer when in her upper 60s. An aunt from the maternal side and another on the paternal side of family with breast cancer while in their 60s. Her daughter was diagnosed with breast cancer in her early 50s. PHYSICAL EXAM: GENERAL: Showed elderly female, awake and answering simple questions appropriately, although having difficulty remembering details. VITAL SIGNS: Temperature was 98.2, pulse rate of 94, respirations 20, blood pressure 149/67 with oxygen saturation of 96% on room air. HEENT: Normocephalic. Extraocular muscles intact, oral mucosa was moist without lesions. NECK: Supple with no JVD. No cervical, supraclavicular or axillary lymphadenopathy palpable. CHEST: Examination showed left modified radical mastectomy. No chest wall lesions noted. LUNGS: Fairly clear to auscultation without wheezes or rales. CARDIOVASCULAR: Exam was regular in rate and rhythm. No murmurs or gallops heard. ABDOMEN: Soft, nontender with no hepatosplenomegaly or other masses palpable. EXTREMITIES: Showed no edema. NEUROLOGIC: Exam showed no focal motor deficits and patient is moving all four extremities. Her activity level is limited because of the back pain. CBC from 02/20/2017 showed WBC 7.8, hemoglobin 9.2, platelet count 379,000 with normal differential count. Chemistry panel showed normal electrolytes. BUN was 8 and creatinine 0.67 with GFR more than 60 mL per minute. Liver function series were within normal limits. Biopsy of the T12 vertebrae for culture was negative with no growth. Microbacterial culture preliminary report was negative also. Pathology report from the T12-L4 laminectomy showed fragment of bone and cartilage with degenerative changes with rare fragments of marrow showing active trilineage hematopoiesis. The CT-guided needle biopsy of T12 vertebrae showed fragments of bone and cartilage with degenerative changes, no malignancy identified. IMPRESSION: 1. Back pain due to compression fracture of T12 vertebrae. 2. The patient is not a candidate for kyphoplasty per orthopedic/spine surgery. Continue conservative management. 3. History of stage I left breast cancer that was estrogen receptor positive, status post left modified radical mastectomy and on adjuvant treatment with Letrozole 2.5 mg daily. 4. Worsening dementia. 5. I had an extensive discussion with the patient and her daughter today and advised conservative management for the compression fracture. The patient is unable to manage at home and the family wants to place her in assisted care facility. I will ask social science research assistant to work with the patient and her family to place her at the appropriate facility. 6. I advised them to continue the Letrozole adjuvantly regarding her breast cancer. 7. She will followup with me on a p.r.n. basis, when her performance status improves. Overall prognosis is poor from the multiple comorbidities. Job ID: [id number] DocumentID: [id number] Dictated Date: 02/21/2017 17:42:09 Asset Protection Professional Date: 02/22/2017 07:12:09 Dictated By: JORGE MAYO MD
== END 2017-02-22 11:25 | DRG 478 ==
LOC: 4TH 16:59
PROVIDERS: ADMIT Internal Medicine; ATTEND Internal Medicine
PROC: 01NB3ZZ Release Lumbar Nerve, Percutaneous Approach (ICD-10-PCS; 2017-02-15)
PROC: 01N80ZZ Release Thoracic Nerve, Open Approach (ICD-10-PCS; principal; 2017-02-15 18:59)
PROC: 0PB43ZX Excision of Thoracic Vertebra, Percutaneous Approach, Diagnostic (ICD-10-PCS; 2017-02-17)
DX: M48.54XA Collapsed vertebra, not elsewhere classified, thoracic region, initial encounter for fracture (principal); M48.06 Spinal stenosis, lumbar region; E88.2 Lipomatosis, not elsewhere classified; N39.0 Urinary tract infection, site not specified; B96.4 Proteus (mirabilis) (morganii) as the cause of diseases classified elsewhere; I10 Essential (primary) hypertension; R41.82 Altered mental status, unspecified; F03.90 Unspecified dementia, unspecified severity, without behavioral disturbance, psychotic disturbance, mood disturbance, and anxiety; K59.09 Other constipation; K21.9 Gastro-esophageal reflux disease without esophagitis; C50.912 Malignant neoplasm of unspecified site of left female breast; Z90.12 Acquired absence of left breast and nipple; Z79.811 Long term (current) use of aromatase inhibitors
CPT/HCPCS: 36415; 72100; 72157; 72158; 76937; 80053; 80202; 82565; 84132; 85025; 87070; 87075; 87081; 87101; 87116; 87205; 88304; 88311; 94664

== ENCOUNTER → 2017-03-15 | Outpatient (CLI) | payer MEDICARE, OTHER ==
[~2017-03-15] MED LIST changes: -CATHETER FLUSH 10 ML SYR IV PRN; -DOXY100C2 PO; -FENT1PAT58 TD; -FLUC100T6 PO; -HALO1TAB PO; -HALO5AMP2 IM; -IOHEXOL 350 MG/ML 100 ML (OMNIPAQUE 350) VIAL IV ONE; -LACT100C2 PO; -MAGN200T PO; -NS 100 ML (IVPB) BAG IV ONE; -POTA10TA36 PO
[2017-03-15 23:18] LABS: BILIRUBIN,URINE NEGATIVE (NEGATIVE); KETONES,URINE NEGATIVE (NEGATIVE); LEUKOCYTE ESTERASE ,URINE 2+ (NEGATIVE); NITRITE,URINE POSITIVE (NEGATIVE); PH,URINE 6 (5-9); PROTEIN,URINE NEGATIVE (NEGATIVE); UROBILINOGEN,URINE 1 MG/DL (NORMAL)
[2017-03-15 23:19] LABS: CALCIUM OXALATE CRYSTALS,UR FEW /LPF; WBC,URINE 50-100 /HPF
== END ==
LOC: CVS 23:01
PROVIDERS: ATTEND Family Medicine
DX: N39.0 Urinary tract infection, site not specified (principal); R53.1 Weakness; R41.82 Altered mental status, unspecified
CPT/HCPCS: 81000; 87088

== ENCOUNTER → 2017-03-17 | Outpatient (CLI) | payer MEDICARE, OTHER ==
[~2017-03-17] MED LIST changes: +DOXY100C2 PO; +FENT1PAT58 TD; +GADOBUTROL 10 MMOL/10 ML (GADAVIST) VIAL IV ONE; +LACT100C2 PO
--- NOTE | 2017-03-17 11:42 | Diagnostic Imaging Report ---
CLINICAL INDICATION: Patient states she is having increased memory loss. Looking for possible stroke. Patient has history of breast cancer two and a half years ago. Exam: MRI of the brain performed without and with 9 cc of Gadavist IV contrast. Sequences include axial DWI, ADC map, axial gradient echo, axial T2, axial FLAIR, axial T1, axial T1 post IV contrast, coronal T1 fat-sat post IV contrast, and sagittal T1 post IV contrast. Comparison: MRI of the brain performed without and with IV contrast dated 11/28/2014. Head CT without and with IV contrast dated 02/07/2017. Findings: There is no evidence of acute cerebral infarct, intracranial hemorrhage, or gross mass effect. There is slight progression of the focal, patchy, and confluent areas of high T2 signal white matter changes in both cerebral hemispheres and periventricular regions, likely representing chronic small vessel ischemic disease and mild leukoaraiosis. There is normal fletcher-white matter distinction. The brain parenchymal volume appears appropriate for patient's age and is stable. There is no significant midline shift or herniation. The pituitary gland, sella, and suprasellar regions are unremarkable as visualized. The [place] vascular structures show no gross abnormality as visualized. There is no evidence of hydrocephalus. The basal cisterns are unremarkable. The skull, extracranial soft tissue, and orbits are unremarkable. The paranasal sinuses are unremarkable. IMPRESSION: 1: There is no evidence of acute cerebral infarction, intracranial hemorrhage, hydrocephalus, or enhancing mass. 2: Slight progression of chronic small vessel ischemic disease and mild leukoaraiosis. 3: Stable brain parenchymal volume loss which appears appropriate for patient's age. Dictated by: Dictated on workstation # [id number]
== END ==
LOC: RAD 09:50
PROVIDERS: ATTEND Nurse Practitioner Family
DX: R41.3 Other amnesia (principal)
CPT/HCPCS: 70553

== ENCOUNTER 2017-03-21 20:16 | Inpatient (IN) | payer MEDICARE, OTHER ==
[~2017-03-21] VITALS: Ht 157.5 cm; Wt 95.7 kg
[~2017-03-21 20:16] MED LIST changes: -DOXY100C2 PO; -FENT1PAT58 TD; -GADOBUTROL 10 MMOL/10 ML (GADAVIST) VIAL IV ONE; -LACT100C2 PO
--- OUTSIDE RECORDS SUMMARY | 2017-03-21 20:21 | XMS REPORT | Clinical Summary ---
Author Author [facility] Organization [facility] Address Unknown Phone Unavailable Care Team Providers Care Alteration Manager Name Role Phone PCP Unavailable Source Comments Some departments are not documenting in the electronic medical record. If you do not see the information that you expected, contact Release of Information in the Health Information Management department at [phone] for further assistance in locating additional records.[facility] Allergies Active Allergy Reactions Severity Noted Date Comments Sulfamethoxazole-Trimetho MUSCLE PAIN 06/23/2014 prim Oxycodone SEE COMMENTS 06/23/2014 Severe confusion/out of control Current Medications Prescription [...] BREAST IMAGING: Mammogram: Bilateral screening mammogram 05/15/14 ([place]) revealed two areas of architectural distortion in the outer left breast. Both areas were seen as far back as 2011. Left diagnostic mammogram 05/19/14 ([place]) revealed a 1.4 cm discrete irregular mass in the outer posterior left breast. There was a second mass posterior and lateral to the first that measure 1.3 cm. Ultrasound: Left breast ultrasound 05/19/14 ([place]) revealed a 1 cm mass at 4:00, 2 cm FTN. There was a 1.1 cm mass at 4:00, 5 cm FTN. The left axilla was unremarkable. PET/CT: PET/CT 06/17/14 ([place], [place]) revealed no definitive evidence of metastasis. [...] Therapy: Letrozole REFERRED BY: Dr. Mauro Nunes Family History Medical History Relation Name Comments Cancer-Lung Father Cancer-Breast Maternal Aunt 70s Cancer-Breast Maternal Aunt 70s Cancer-Breast Maternal 50s Grandmother Cancer-Breast Sister 60s Relation Name Status Comments Father Maternal Aunt Maternal Aunt Maternal Grandmother Sister Social History Tobacco Use Types Packs/Day Years Used Date Never Smoker Smokeless Tobacco: Never Used Alcohol Use Drinks/Week oz/Week Comments No once a year Sex Assigned at Date Recorded Not on file Last Filed Vital Signs Vital Sign Reading Time Taken Blood Pressure 100/80 05/04/2015 2:08 PM CDT Pulse 84 05/04/2015 2:08 PM CDT Temperature 36.5 C (97.7 F) 05/04/2015 2:08 PM CDT Respiratory Rate 17 05/04/2015 2:08 PM CDT Oxygen Saturation 100% 05/04/2015 2:08 PM CDT Inhaled Oxygen - - Concentration Weight 108.1 kg (238 lb 6.4 oz) 05/04/2015 2:08 PM CDT Height 157.5 cm (5' 2") 05/04/2015 2:08 PM CDT Body Mass Index 43.6 05/04/2015 2:08 PM CDT Plan of Treatment Health Maintenance Due Date Last Done Comments PHYSICAL (COMPREHENSIVE) 1942 EXAM PERTUSSIS VACCINE 1948 TETANUS VACCINE 1954 SHINGLES VACCINE 1997 OSTEOPOROSIS SCREENING 2002 PREVNAR/PNEUMOVAX (#1) 2002 INFLUENZA VACCINE 03/17/2017 Results Not on filefrom Last 3 Months
--- NOTE | 2017-03-21 20:28 | ED General ---
General Stated Complaint: CONFUSION Source of Information: EMS, [facility] Records Exam Limitations: No Limitations History of Present Illness Time Seen by Provider: 20:26 Initial Comments To ER per EMS from [facility] with reports of agitation, combativeness with staff. She is currently being treated for a bladder infection.. She was apparently making suicidal comments to the staff, however, she is dependent on them for care and is demented. shelter staff gave Xanax orally prior to transfer to ER. Timing/Duration: 1-2 Days Allergies and Home Medications Allergies Coded Allergies: ciprofloxacin (Unverified Allergy, Unknown, 02/13/17) oxycodone (Unverified Allergy, Unknown, 02/13/17) sulfamethoxazole (Unverified Allergy, Unknown, 02/13/17) trimethoprim (Unverified Allergy, Unknown, 02/13/17) Home Medications Acetaminophen 500 Mg Tablet, 500-1,000 MG PO Q4H PRN for PAIN-MILD, (Reported) Alprazolam 0.25 Mg Tablet, 0.25 MG PO TID PRN for ANXIETY, #30 Prescribed by: KIA MCHUGH on 02/21/17940 Aspirin 81 Mg Tablet.dr, 81 MG PO DAILY, (Reported) Divalproex Sodium 125 Mg Cap, 125 MG PO Q8H PRN for Confusion, agitation for 30 Days Prescribed by: KIA MCHUGH on 02/21/17940 Docusate Sodium 100 Mg Capsule, 100 MG PO DAILY, (Reported) Enoxaparin Sodium 40 Mg/0.4 Ml Syringe, 40 MG SC Q24H for 14 Days Prescribed by: KIA MCHUGH on 02/21/17940 Fentanyl 1 Each Patch.td72, 50 MCG TD Q72H, #10 Prescribed by: KIA MCHUGH on 02/21/17940 Hydrocodone/Acetaminophen 1 Each Tablet, 1 TAB PO Q8H PRN for PAIN-MODERATE, #50 Prescribed by: KIA MCHUGH on 02/21/17940 Lactulose 20 Gm/30 Ml Solution, 10 GM PO BID for 30 Days Prescribed by: KIA CMHUGH on 02/21/17940 Letrozole 2.5 Mg Tablet, 2.5 MG PO DAILY, (Reported) Omeprazole 20 Mg Tablet.dr, 20 MG PO DAILY, (Reported) Ondansetron 4 Mg Tab.rapdis, 4 MG PO Q6H PRN for NAUSEA/VOMITING-1ST LINE, ( Reported) Polyethylene Glycol 3350 17 Gm Powd.pack, 17 GM PO DAILY PRN for CONSTIPATION- 2ND LINE, (Reported) Constitutional: see HPI EENTM: see HPI Respiratory: no symptoms reported Cardiovascular: no symptoms reported Genitourinary: no symptoms reported Musculoskeletal: no symptoms reported Skin: no symptoms reported Psychiatric/Neurological: See HPI Past Sprjkdo-Gzhood-Bgahud Hx Patient Social History Recent Hopitalizations: Yes Seasonal Allergies Seasonal Allergies: No Surgeries History of Surgeries: Yes Respiratory History of Respiratory Disorde: No Cardiovascular History of Cardiac Disorders: Yes (CEREBROVASCULAR DISEASE) Neurological History of Neurological Disord: No (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 GCS 14. Alert. States that she was upset because staff members were trying to "hurt a little girl") Eyes: Bilateral Eye Normal Inspection, Bilateral Eye PERRL, Bilateral Eye EOMI HEENT: PERRL/EOMI, TMs Normal Neck: Full Range of Motion, Normal Inspection Respiratory: Normal Breath Sounds, No Accessory Muscle Use, No Respiratory Distress Cardiovascular: Regular Rate, Rhythm Gastrointestinal: Normal Bowel Sounds, Non Tender, Soft Extremity: Normal Capillary Refill, Normal Inspection Neurologic/Psychiatric: Alert Skin: Normal Color, Warm/Dry Progress/Results/Core Measures Results/Orders Lab Results Laboratory Tests Test 03/21/17 20:20 03/21/17 20:40 Range/Units White Blood Count 8.6 4.3-11.0 10^3/uL Red Blood Count 3.78 L 4.35-5.85 10^6/uL Hemoglobin 9.9 L 11.5-16.0 G/DL Hematocrit 32 L 35-52 % Mean Corpuscular Volume 84 80-99 FL Mean Corpuscular Hemoglobin 26 25-34 PG Mean Corpuscular Hemoglobin Concent 31 L 32-36 G/DL Red Cell Distribution Width 15.4 H 10.0-14.5 % Platelet Count 436 H 130-400 10^3/uL Mean Platelet Volume 8.9 7.4-10.4 FL Neutrophils (%) (Auto) 60 42-75 % Lymphocytes (%) (Auto) 23 12-44 % Monocytes (%) (Auto) 14 H 0-12 % Eosinophils (%) (Auto) 2 0-10 % Basophils (%) (Auto) 0 0-10 % Neutrophils # (Auto) 5.2 1.8-7.8 X 10^3 Lymphocytes # (Auto) 2.0 1.0-4.0 X 10^3 Monocytes # (Auto) 1.2 H 0.0-1.0 X 10^3 Eosinophils # (Auto) 0.2 0.0-0.3 10^3/uL Basophils # (Auto) 0.0 0.0-0.1 10^3/uL Sodium Level 140 135-145 MMOL/L Potassium Level 2.8 L 3.6-5.0 MMOL/L Chloride Level 101 98-107 MMOL/L Carbon Dioxide Level 24 21-32 MMOL/L Anion Gap 15 H 5-14 MMOL/L Blood Urea Nitrogen 16 7-18 MG/DL Creatinine 0.82 0.60-1.30 MG/DL Estimat Glomerular Filtration Rate > 60 BUN/Creatinine Ratio 20 Glucose Level 116 H 70-105 MG/DL Calcium Level 8.7 8.5-10.1 MG/DL Total Bilirubin 0.4 0.1-1.0 MG/DL Aspartate Amino Transf (AST/SGOT) 17 5-34 U/L Alanine Aminotransferase (ALT/SGPT) 15 0-55 U/L Alkaline Phosphatase 95 40-136 U/L Total Protein 6.1 L 6.4-8.2 GM/DL Albumin 3.2 3.2-4.5 GM/DL Urine Color YELLOW Urine Clarity CLEAR Urine pH 6 5-9 Urine Specific [place] 1.015 L 1.016-1.022 Urine Protein 2+ H NEGATIVE Urine Glucose (UA) NEGATIVE NEGATIVE Urine Ketones 2+ H NEGATIVE Urine Nitrite NEGATIVE NEGATIVE Urine Bilirubin NEGATIVE NEGATIVE Urine Urobilinogen 4 H NORMAL MG/DL Urine Leukocyte Esterase 2+ H NEGATIVE Urine RBC (Auto) NEGATIVE NEGATIVE Urine RBC NONE /HPF Urine WBC 25-50 H /HPF Urine Squamous Epithelial Cells 0-2 /HPF Urine Crystals NONE /LPF Urine Bacteria TRACE /HPF Urine Casts NONE /LPF Urine Mucus NEGATIVE /LPF Urine Yeast FEW H /HPF Urine Culture Indicated YES My Orders Orders - MARIANA HERNANDEZ APRN Cbc With Automated Diff (03/21/17 20:37) Comprehensive Metabolic Panel (03/21/17 20:37) Urinalysis (03/21/17 20:37) Potassium Chloride (Tablet) (Klor Con Ta (03/21/17 21:00) Potassium Cl 10meq/50ml Ivpb (Kcl 10 Meq (03/21/17 21:00) Ns Iv 500 Ml (Sodium Chloride 0.9%) (03/21/17 21:00) Urine Culture (03/21/17 20:40) Doxycycline Hyclate Tablet (Vibramycin T (03/21/17 21:45) Medications Given in ED Current Medications Medications Dose Ordered Sig/Adelina Route Start Time Stop Time Status Last Admin Dose Admin Potassium Chloride 40 meq ONCE ONCE PO 03/21/17 21:00 03/21/17 21:01 DC 03/21/17 21:16 40 MEQ Potassium Chloride 50 ml @ 50 mls/hr ONCE ONCE IV 03/21/17 21:00 03/21/17 21:59 DC 03/21/17 21:18 50 MLS/HR Departure Communication (Admissions) Time/Spoke to Admitting Phy: 22:30 Communication I discussed the case with Dr. Ha. Since the patient still has urinary tract infection that was sensitive to only 2 oral antibiotics one of which the patient is allergic to, she failed with the other one, we will admit to the hospital for IV vancomycin, potassium has been replaced 10 mEq IV in the emergency room tonight as well as 40 mEq orally in the emergency room tonight. We'll recheck this in the morning. Impression Impression: Primary Impression: Urinary tract infection Additional Impression: Hypokalemia Disposition: ADMITTED INPATIENT Condition: Stable Admissions Decision to Admit Reason: Admit from ER (General) Decision to Admit/Date: Mar 21, 2017 Time/Decision to Admit Time: 22:11 Departure-Patient Inst. Decision time for Depature: 21:25 Referrals: SELF,OFELIA VIEYRA (PCP/Family) Primary Care Physician Patient Instructions: Hypokalemia, Urinary Tract Infection, Adult (DC) Add. Discharge Instructions: 1. Follow-up with her doctor later this week 2. Return to ER for any concerns 3. MARIANA HERNANDEZ APRN Mar 21, 2017 20:28
[2017-03-21 20:48] LABS: BASOPHILS % (AUTO) 0 % (0-10); EOSINOPHILS # (AUTO) 0.2 10^3/uL (0.0-0.3); EOSINOPHILS % (AUTO) 2 % (0-10); LYMPHOCYTES % (AUTO) 23 % (12-44); MEAN CORPUSCULAR HEMOGLOBIN 26 PG (25-34); MEAN CORPUSCULAR HGB CONC 31 G/DL (32-36); MEAN CORPUSCULAR VOLUME 84 FL (80-99); MEAN PLATELET VOLUME 8.9 FL (7.4-10.4); MONOCYTES # (AUTO) 1.2 X 10^3 (0.0-1.0); MONOCYTES % (AUTO) 14 % (0-12); NEUTROPHILS # (AUTO) 5.2 X 10^3 (1.8-7.8); NEUTROPHILS % (AUTO) 60 % (42-75); PLATELET COUNT 436 10^3/uL (130-400); RED BLOOD COUNT 3.78 10^6/uL (4.35-5.85); RED CELL DISTRIBUTION WIDTH 15.4 % (10.0-14.5); WHITE BLOOD COUNT 8.6 10^3/uL (4.3-11.0)
[2017-03-21 20:52] LABS: BILIRUBIN,URINE NEGATIVE (NEGATIVE); KETONES,URINE 2+ (NEGATIVE); LEUKOCYTE ESTERASE ,URINE 2+ (NEGATIVE); NITRITE,URINE NEGATIVE (NEGATIVE); PH,URINE 6 (5-9); PROTEIN,URINE 2+ (NEGATIVE); UROBILINOGEN,URINE 4 MG/DL (NORMAL)
[2017-03-21 20:53] LABS: ALANINE AMINOTRANSFERASE 15 U/L (0-55); ALBUMIN 3.2 GM/DL (3.2-4.5); ANION GAP 15 MMOL/L (5-14); ASPARTATE AMINO TRANSFERASE 17 U/L (5-34); BILIRUBIN,TOTAL 0.4 MG/DL (0.1-1.0); BLOOD UREA NITROGEN 16 MG/DL (7-18); BUN/CREATININE RATIO 20; CALCIUM 8.7 MG/DL (8.5-10.1); CARBON DIOXIDE 24 MMOL/L (21-32); CHLORIDE 101 MMOL/L (98-107); CREATININE SERUM 0.82 MG/DL (0.60-1.30); GFR ESTIMATED > 60; GLUCOSE 116 MG/DL (70-105); POTASSIUM 2.8 MMOL/L (3.6-5.0); SODIUM 140 MMOL/L (135-145); TOTAL PROTEIN 6.1 GM/DL (6.4-8.2)
[2017-03-21 20:59] LABS: SQUAMOUS EPITHELIAL CELL,UR 0-2 /HPF; WBC,URINE 25-50 /HPF
[2017-03-21 21:00] LABS: YEAST,URINE FEW /HPF
[2017-03-21] MEDS ORDERED: POTASSIUM CL 10MEQ/50ML IVPB 50 ML IV ONE (21:00)
[2017-03-21] MEDS ORDERED: KCL 10 MEQ TAB (MICRO K) PO ONE (21:00)
[2017-03-21] MEDS ORDERED: NS IV 500 ML 500 ML IV SCH (21:00)
[2017-03-21] MEDS ORDERED: DOXYCYCLINE 100 MG (VIBRAMYCIN) TABLET PO SCH (21:45)
--- OUTSIDE RECORDS SUMMARY | 2017-03-21 22:59 | XMS REPORT | Clinical Summary ---
Author Author [facility] Organization [facility] Address Unknown Phone Unavailable Care Team Providers Care Fund Development Manager Name Role Phone PCP Unavailable Source Comments Some departments are not documenting in the electronic medical record. If you do not see the information that you expected, contact Release of Information in the Health Information Management department at [phone] for further assistance in locating additional records.[facility] Allergies Active Allergy Reactions Severity Noted Date [...] BREAST IMAGING: Mammogram: Bilateral screening mammogram 05/15/14 ([place]) revealed two areas of architectural distortion in the outer left breast. Both areas were seen as far back as 2011. Left diagnostic mammogram 05/19/14 ([place]) revealed a 1.4 cm discrete irregular mass in the outer posterior left breast. There was a second mass posterior and lateral to the first that measure 1.3 cm. Ultrasound: Left breast ultrasound 05/19/14 ([place]) revealed a 1 cm mass at 4:00, 2 cm FTN. There was a 1.1 cm mass at 4:00, 5 cm FTN. The left axilla was unremarkable. PET/CT: PET/CT 06/17/14 ([place], [place]) revealed no definitive evidence of metastasis. [...]
[2017-03-22] VITALS (7 sets, daily range): BP systolic 137–174; BP diastolic 65–84
[2017-03-22] MEDS ORDERED: VANCOMYCIN 1 GM/NS 250 ML IVPB IV SCH ×2 (00:45)
[2017-03-22] MEDS: NS IV 1000 ML 1,000 ML IV SCH ×3 (01:21→21:15)
[2017-03-22] MEDS ORDERED: CATHETER FLUSH 10 ML SYR IV PRN (04:30)
[2017-03-22] MEDS: CATHETER FLUSH 10 ML SYR IV SCH ×3 (06:00→21:19)
[2017-03-22] MEDS: KCL 20 MEQ TAB (K-DUR) PO SCH (06:03)
[2017-03-22 07:03] LABS: BASOPHILS # (AUTO) 0.1 10^3/uL (0.0-0.1); BASOPHILS % (AUTO) 1 % (0-10); EOSINOPHILS # (AUTO) 0.4 10^3/uL (0.0-0.3); EOSINOPHILS % (AUTO) 6 % (0-10); LYMPHOCYTES # (AUTO) 1.8 X 10^3 (1.0-4.0); LYMPHOCYTES % (AUTO) 28 % (12-44); MEAN CORPUSCULAR HEMOGLOBIN 27 PG (25-34); MEAN CORPUSCULAR HGB CONC 31 G/DL (32-36); MEAN CORPUSCULAR VOLUME 85 FL (80-99); MEAN PLATELET VOLUME 8.8 FL (7.4-10.4); MONOCYTES # (AUTO) 0.8 X 10^3 (0.0-1.0); MONOCYTES % (AUTO) 13 % (0-12); NEUTROPHILS # (AUTO) 3.3 X 10^3 (1.8-7.8); NEUTROPHILS % (AUTO) 52 % (42-75); PLATELET COUNT 370 10^3/uL (130-400); RED BLOOD COUNT 3.77 10^6/uL (4.35-5.85); RED CELL DISTRIBUTION WIDTH 15.5 % (10.0-14.5); WHITE BLOOD COUNT 6.3 10^3/uL (4.3-11.0)
[2017-03-22 07:23] LABS: ANION GAP 14 MMOL/L (5-14); BLOOD UREA NITROGEN 12 MG/DL (7-18); BUN/CREATININE RATIO 18; CALCIUM 8.4 MG/DL (8.5-10.1); CARBON DIOXIDE 21 MMOL/L (21-32); CHLORIDE 107 MMOL/L (98-107); CREATININE SERUM 0.67 MG/DL (0.60-1.30); GFR ESTIMATED > 60; GLUCOSE 88 MG/DL (70-105); SODIUM 142 MMOL/L (135-145)
--- NOTE | 2017-03-22 08:31 | History & Physicial ---
History of Present Illness History of Present Illness Reason for visit/HPI PT IS A 81 Y/O FEMALE WHO IS A PATIENT IN MY CLINIC. SHE HAD DIAGNOSIS OF URINARY TRACT INFECTION - MRSA - AND STARTED TO BECOME AGITATED, ANXIOUS, HITTING STAFF, AND THREATENED THE LIFE OF THE STAFF AND HERSELF AT THE [facility]. THEY ASKED FOR TRANSFER OF PATIENT TO THE HOSPITAL FOR FURTHER WORK-UP. Date of Admission Mar 21, 2017 at 22:55 Time Seen by Provider: 08:22 I consulted on this patient on 03/22/17 08:30 Attending Physician Violet Ha MD Admitting Physician Madhav Ty MD Consult Allergies and Home Medications Allergies Coded Allergies: ciprofloxacin (Unverified Allergy, Unknown, 02/13/17) oxycodone (Unverified Allergy, Unknown, 02/13/17) sulfamethoxazole (Unverified Allergy, Unknown, 02/13/17) trimethoprim (Unverified Allergy, Unknown, 02/13/17) Home Medications Acetaminophen 500 Mg Tablet, 1,000 MG PO Q4H PRN for PAIN-MILD, (Reported) Alprazolam 0.25 Mg Tablet, 0.25 MG PO 1200,0000 PRN for ANXIETY, (Reported) Alprazolam 0.25 Mg Tablet, 0.25 MG PO Q12H, (Reported) Aspirin 81 Mg Tablet.dr, 81 MG PO DAILY, (Reported) Divalproex Sodium 125 Mg Cap, 125 MG PO Q8H PRN for CONFUSION/AGITATION, ( Reported) Docusate Sodium 100 Mg Capsule, 100 MG PO DAILY, (Reported) Doxycycline Hyclate 100 Mg Capsule, 100 MG PO BID, (Reported) START DATE 03-17-17 STOP DATE 03-25-17 Fentanyl 1 Each Patch.td72, 50 MCG TD Q72H, (Reported) Hydrocodone/Acetaminophen 1 Each Tablet, 1 TAB PO TID, (Reported) Lactobacillus Acidophilus 100 Mg Capsule, 1 CAP PO BID, (Reported) START DATE 03-17-17 STOP DATE 03-25-17 Lactulose 20 Gm/30 Ml Solution, 15 ML PO BID, (Reported) Letrozole 2.5 Mg Tablet, 2.5 MG PO DAILY, (Reported) Omeprazole 20 Mg Tablet.dr, 20 MG PO DAILY, (Reported) Ondansetron 4 Mg Tab.rapdis, 4 MG PO Q6H PRN for NAUSEA/VOMITING-1ST LINE, ( Reported) Polyethylene Glycol 3350 17 Gm Powd.pack, 17 GM PO DAILY PRN for CONSTIPATION- 2ND LINE, (Reported) Past Ksnejnp-Mydrrg-Pwphxa Hx Patient Social History Marrital Status: Living Status: LIVES AT [facility] Employed/Student: retired Alcohol Use: Denies Use Recreational Drug Use: No Smoking Status: Never a Smoker 2nd Hand Smoke Exposure: No Physical Abuse Screen: No Sexual Abuse: No Recent Foreign Travel: No Contact w/other who traveled: No Recent Hopitalizations: Yes Recent Infectious Disease Expo: No Seasonal Allergies Seasonal Allergies: No Surgeries Yes (left mastecomy) Breast, Section, Gallbladder, Orthopedic Respiratory No Currently Using CPAP: No Currently Using BIPAP: No Cardiovascular Yes (CEREBROVASCULAR DISEASE) Hypertension Neurological Yes (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) Dementia Reproductive System : No Hx Reproductive Disorders: No Sexually Transmitted Disease: No HIV/AIDS: No Female Reproductive Disorders: Denies Genitourinary No UTI-Chronic Gastrointestinal Yes (CHRONIC UPPER GASTROINTESTINAL HEMORRHAGE) Gastrointestinal Bleed, Chronic Constipation Musculoskeletal Yes Back Injury, Chronic Back Pain, Fractures Endocrine History of Endocrine Disorders: No HEENT History of HEENT Disorders: No Cancer Yes Skin, Breast Did You Recieve Any Treatments: Yes Type of Treatment: Surgical Intervention Psychosocial History of Psychiatric Problem: Yes Behavioral Health Disorders: Anxiety, Violent Behavior, Depression Integumentary History of Skin or Integumenta: Yes (SKIN CA) Blood Transfusions History 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) Adverse Reaction to a Blood Tr: No Reviewed Nursing Assessment Reviewed/Agree w Nursing PMH: Yes Family Medical History Significant Family History: Heart Disease, Hypertension Constitutional: No chills, No fever, malaise, weakness EENTM: No hoarseness, No throat pain, No throat swelling Respiratory: No cough, No dyspnea on exertion Cardiovascular: No chest pain, No edema Gastrointestinal: No abdominal pain, No nausea, No vomiting Genitourinary: frequency, incontinence : No Musculoskeletal: muscle weakness Skin: No no symptoms reported Psychiatric/Neurological: Anxiety, Depressed, Weakness All Other Systems Reviewed Negative Unless Noted: Yes Physical Exam Vital Signs Vital Sign - Last 12Hours 03/21/17 20:16 Temp 97.2 Pulse 90 Resp 20 B/P (MAP) 123/79 Pulse Ox 97 O2 Delivery Room Air Capillary Refill : Less Than 3 Seconds General Appearance: WD/WN, Anxious, Obese Eyes: Bilateral Eye Normal Inspection, Bilateral Eye PERRL, Bilateral Eye EOMI HEENT: PERRL/EOMI, Pharynx Normal Neck: Full Range of Motion, Supple Respiratory: Chest Non Tender, Lungs Clear, Normal Breath Sounds Cardiovascular: Regular Rate, Rhythm, No Edema Gastrointestinal: Normal Bowel Sounds, Non Tender, Soft Rectal: Deferred Extremity: Normal Capillary Refill, No Pedal Edema Neurologic/Psychiatric: Alert, Disoriented x3, Other (ANXIOUS, SITTING ON TOILET) Skin: Normal Color, Warm/Dry Lymphatic: No Adenopathy Assessment/Plan Assessment and Plan URINARY TRACT INFECTION FATIGUE WEAKNESS ABDOMINAL PAIN NAUSEA DEMENTIA HYPOKALEMIA ANEMIA URINARY TRACT INFECTION - MRSA URINARY TRACT INFECTION FROM PREVIOUS URINE CULTURE - WILL TREAT WITH ZOSYN FOR NOW, MONITOR SYMPTOMS, AND CHANGE MEDICATION BASED ON CULTURE REPORT. FATIGUE AND WEAKNESS - SUPPORTIVE CARE, PHYSICAL THERAPY ABDOMINAL PAIN - SHOULD IMPROVE WITH TREATMENT OF INFECTION. NAUSEA - IMPROVED. DEMENTIA WITH BEHAVIORS AND AGITATION - PRN DEPAKOTE ON SCHEDULE, MONITOR SYMPTOMS, CONTINUE WITH CURRENT HOME MEDICATIONS. HYPOKALEMIA - REPLACE WITH IV AND ORAL. ANEMIA - STABLE. Problems: Admission Diagnosis URINARY TRACT INFECTION FATIGUE WEAKNESS ABDOMINAL PAIN NAUSEA DEMENTIA HYPOKALEMIA ANEMIA Clinical Quality Measures DVT/VTE Risk/Contraindication: Risk Factor Score Per Nursin RFS Level Per Nursing on Admit: 4+=Very High VIOLET HA MD Mar 22, 2017 08:31
[2017-03-22] MEDS ORDERED: POLYETHYLENE GLYCOL 17 GM (MIRALAX) PACK PO ONE (09:30)
[2017-03-22] MEDS ORDERED: ONDANSETRON 4 MG/2 ML (SDV) Z0FRAN IVP PRN (09:30)
[2017-03-22] MEDS ORDERED: PHENAZOPYRIDINE 100 MG (PYRIDIUM) TABLET PO ONE (09:30)
[2017-03-22] MEDS ORDERED: ONDANSETRON 4 MG/2 ML (SDV) Z0FRAN IVP ONE (09:30)
[2017-03-22] MEDS ORDERED: ALPR0.25 PO ×2 (09:45)
[2017-03-22] MEDS ORDERED: DOXY100C2 PO (09:45)
[2017-03-22] MEDS ORDERED: DVL125C PO (09:45)
[2017-03-22] MEDS ORDERED: HYDR-3816 PO (09:45)
[2017-03-22] MEDS ORDERED: LACT20SO2 PO (09:45)
[2017-03-22] MEDS ORDERED: LACT100C2 PO (09:45)
[2017-03-22] MEDS ORDERED: FENT1PAT58 TD (09:45)
[2017-03-22] MEDS: LACTOBACILLUS Acidoph/Bulgar (LACTINEX/FLORANEX) TAB PO SCH ×2 (10:53→16:30)
[2017-03-22] MEDS: VANCOMYCIN 1500 MG/NS 500 ML IVPB IV SCH ×2 (10:53)
[2017-03-22] MEDS ORDERED: LACTOBACILLUS Acidoph/Bulgar (LACTINEX/FLORANEX) TAB PO SCH (11:00)
[2017-03-22] MEDS: fentaNYL INJECTION 100 MCG/2 ML AMP IVP PRN ×2 (11:22→19:30)
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
[2017-03-22] MEDS: PHENAZOPYRIDINE 100 MG (PYRIDIUM) TABLET PO SCH ×2 (12:40→18:00)
[2017-03-22] MEDS: HYDROcodone/APAP 7.5 MG/325 MG (LORTAB, LORCET PLUS) TABLET PO SCH ×2 (12:43→18:55)
[2017-03-22] MEDS: ALPRAZolam 0.25 MG (XANAX) TAB PO SCH ×2 (12:43→21:18)
[2017-03-22] MEDS ORDERED: ONDANSETRON 4 MG (ZOFRAN) ORAL DISSOLVE TAB PO PRN (13:00)
[2017-03-22] MEDS ORDERED: ALPRAZolam 0.25 MG (XANAX) TAB PO PRN (13:00)
[2017-03-22] MEDS ORDERED: DIVALPROX SPRINKLE 125 MG (DEPAKOTE) CAP PO PRN (13:00)
[2017-03-22] MEDS ORDERED: ACETAMINOPHEN 500 MG TAB (TYLENOL) PO PRN (13:00)
[2017-03-22] MEDS ORDERED: POLYETHYLENE GLYCOL 17 GM (MIRALAX) PACK PO PRN (13:45)
--- NOTE | 2017-03-22 14:12 | Occ Therapy Progress Note ---
Therapy Progress Note 1331 Attempted to see pt but family reported that she had just gotten back in bed and was in a lot of pain. LADONNA LARA OT Mar 22, 2017 14:12
[2017-03-22] MEDS ORDERED: HALOPERIDOL 5 MG/ML (HALDOL) AMP ONE (19:33)
[2017-03-22] MEDS ORDERED: LORazepam INJ 2 MG/ML (ATIVAN) VIAL ONE (19:35)
[2017-03-22] MEDS ORDERED: LORazepam INJ 2 MG/ML (ATIVAN) VIAL IVP ONE (19:45)
[2017-03-22] MEDS ORDERED: HALOPERIDOL 5 MG/ML (HALDOL) AMP IM PRN (19:45)
[2017-03-22] MEDS ORDERED: POLYETHYLENE GLYCOL 17 GM (MIRALAX) PACK PO SCH (21:00)
[2017-03-22] MEDS: LACTULOSE SYRUP 10GM/15ML (ENULOSE) 30ML UDC PO SCH (21:19)
[2017-03-23] MEDS: fentaNYL INJECTION 100 MCG/2 ML AMP IVP PRN ×3 (04:47→16:40)
[2017-03-23] MEDS: CATHETER FLUSH 10 ML SYR IV SCH ×3 (05:28→23:09)
[2017-03-23] MEDS: LACTOBACILLUS Acidoph/Bulgar (LACTINEX/FLORANEX) TAB PO SCH ×3 (06:17→16:39)
[2017-03-23] MEDS: PANTOPRAZOLE 20 MG TABLET (PROTONIX) PO SCH (06:18)
[2017-03-23] MEDS: KCL 20 MEQ TAB (K-DUR) PO SCH (06:18)
[2017-03-23 08:14] VITALS: BP 161/71
[2017-03-23] MEDS: ASPIRIN E.C. 81 MG (ECOTRIN) TAB PO SCH (08:47)
[2017-03-23] MEDS: DOCUSATE SODIUM 100 MG (COLACE) CAP PO SCH (08:47)
[2017-03-23] MEDS: ALPRAZolam 0.25 MG (XANAX) TAB PO SCH ×2 (08:47→23:09)
[2017-03-23] MEDS: LETROZOLE 2.5 MG (FEMARA) TAB PO SCH (08:47)
[2017-03-23] MEDS: PHENAZOPYRIDINE 100 MG (PYRIDIUM) TABLET PO SCH ×3 (08:47→16:39)
[2017-03-23] MEDS: HYDROcodone/APAP 7.5 MG/325 MG (LORTAB, LORCET PLUS) TABLET PO SCH ×3 (08:47→23:09)
[2017-03-23] MEDS ORDERED: FENTANYL PATCH REMOVAL TP SCH (08:59)
[2017-03-23] MEDS ORDERED: fentaNYL PATCH 50 MCG (DURAGESIC) TD SCH (09:00)
[2017-03-23] MEDS: LACTULOSE SYRUP 10GM/15ML (ENULOSE) 30ML UDC PO SCH ×2 (09:03→23:08)
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
[2017-03-23] MEDS ORDERED: FLUCONAZOLE 100 MG/50 ML 50 ML IV NR (09:15)
[2017-03-23] MEDS: DIVALPROX SPRINKLE 125 MG (DEPAKOTE) CAP PO SCH ×2 (09:38→16:39)
[2017-03-23] MEDS: NS IV 1000 ML 1,000 ML IV SCH (09:39)
[2017-03-23 09:50] LABS: MEAN PLATELET VOLUME 8.7 FL (7.4-10.4); RED BLOOD COUNT 3.79 10^6/uL (4.35-5.85); RED CELL DISTRIBUTION WIDTH 15.5 % (10.0-14.5); WHITE BLOOD COUNT 6.7 10^3/uL (4.3-11.0)
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
[2017-03-23] MEDS: VANCOMYCIN 1500 MG/NS 500 ML IVPB IV SCH ×2 (10:16)
[2017-03-23 10:18] LABS: ALANINE AMINOTRANSFERASE 15 U/L (0-55); ALBUMIN 3.1 GM/DL (3.2-4.5); ANION GAP 11 MMOL/L (5-14); ASPARTATE AMINO TRANSFERASE 15 U/L (5-34); BILIRUBIN,TOTAL 0.5 MG/DL (0.1-1.0); BLOOD UREA NITROGEN 9 MG/DL (7-18); BUN/CREATININE RATIO 13; CALCIUM 8.4 MG/DL (8.5-10.1); CARBON DIOXIDE 26 MMOL/L (21-32); CHLORIDE 106 MMOL/L (98-107); CREATININE SERUM 0.69 MG/DL (0.60-1.30); GFR ESTIMATED > 60; GLUCOSE 109 MG/DL (70-105); MAGNESIUM 1.4 MG/DL (1.8-2.4); POTASSIUM 3.2 MMOL/L (3.6-5.0); SODIUM 143 MMOL/L (135-145); TOTAL PROTEIN 5.7 GM/DL (6.4-8.2)
--- NOTE | 2017-03-23 12:36 | Occ Therapy Progress Note ---
Therapy Progress Note 1230 Attempted OT evaluation. pt in bed, with restraints on, sitter in room, agitated. Pt refused to give her name and pointed finger at OT, stating, "You' d better..." Unable to complete evaluation. Will continue to follow. LADONNA LARA OT Mar 23, 2017 12:36
[2017-03-23 16:10] VITALS: BP 161/73
[2017-03-23] MEDS ORDERED: LORazepam INJ 2 MG/ML (ATIVAN) VIAL IVP ONE (21:15)
[2017-03-23] MEDS: HALOPERIDOL 5 MG/ML (HALDOL) AMP IV PRN (21:36)
[2017-03-24 00:56] VITALS: BP 177/77
[2017-03-24] MEDS: DIVALPROX SPRINKLE 125 MG (DEPAKOTE) CAP PO SCH ×2 (01:43→09:02)
[2017-03-24] MEDS: NS IV 1000 ML 1,000 ML IV SCH (03:30)
[2017-03-24] MEDS: fentaNYL INJECTION 100 MCG/2 ML AMP IVP PRN (04:02)
[2017-03-24] MEDS: KCL 20 MEQ TAB (K-DUR) PO SCH (06:00)
[2017-03-24] MEDS: LACTOBACILLUS Acidoph/Bulgar (LACTINEX/FLORANEX) TAB PO SCH ×2 (06:00→13:45)
[2017-03-24] MEDS: PANTOPRAZOLE 20 MG TABLET (PROTONIX) PO SCH (06:00)
[2017-03-24] MEDS: CATHETER FLUSH 10 ML SYR IV SCH ×2 (06:00→14:00)
[2017-03-24] MEDS: HALOPERIDOL 5 MG/ML (HALDOL) AMP IV PRN (06:21)
[2017-03-24 08:00] VITALS: BP 166/74
[2017-03-24] MEDS ORDERED: TROUGH ORDER-PHARMACY XX NR (08:00)
[2017-03-24] MEDS ORDERED: fluCOnazole (DIFLUCAN) 100 MG TAB PO SCH (09:00)
[2017-03-24] MEDS: ALPRAZolam 0.25 MG (XANAX) TAB PO SCH (09:01)
[2017-03-24] MEDS: DOCUSATE SODIUM 100 MG (COLACE) CAP PO SCH (09:02)
[2017-03-24] MEDS: HYDROcodone/APAP 7.5 MG/325 MG (LORTAB, LORCET PLUS) TABLET PO SCH ×2 (09:02→13:45)
[2017-03-24] MEDS: ASPIRIN E.C. 81 MG (ECOTRIN) TAB PO SCH (09:02)
[2017-03-24] MEDS: LETROZOLE 2.5 MG (FEMARA) TAB PO SCH (09:06)
[2017-03-24] MEDS: LACTULOSE SYRUP 10GM/15ML (ENULOSE) 30ML UDC PO SCH (09:06)
--- NOTE | 2017-03-24 09:40 | Physical Therapy Daily Note ---
PT Daily Note-Current Subjective Patient in soft restraints and lethargic. Pain Numeric Pain Scale: 0-No Pain Location: No Pain Reported Mental Status Patient Orientation: Confused, Mumbles, Listless Transfers Functional [place] Measure 0=Not Assessed/NA 4=Minimal Assistance 1=Total Assistance 5=Supervision or Setup 2=Maximal Assistance 6=Modified [place] 3=Moderate Assistance 7=Complete IndependenceIRFPAI Quality Coding Scale 6 Independent with activity with or without an assistive device 5 Patient requires set up or clean up by helper. Patient completes activity by themselves 4 Supervision or touching assist (CGA). [place] provide cues , steadying assist 3 The helper provides less than half the effort to complete the activity 2 The helper provides more than half the effort to complete the activity 1 Dependent. The helper does all the effort to complete an activity 7 Patient refused to complete or attempt activity 9 The patient did not perform the activity before the current illness or injury 88 Not attempted due to Medical conditions or safety concerns Transfers (B, C, W/C) (FIM): 1 Scootin Rollin Patient is unsafe to sit EOB or participate in OOB activities at this time due to lethargy. Dependent assist with bed mobility activity to change bedding, cleanse patient and clothe patient. Assessment Patient is not making progress with skilled therapy. She has had an increase in medication to calm her due to agitation and combative behavior. PT to change frequency to 5/wk and will increase as patient becomes more aware of her surroundings and is able to follow direction. PT Aerial Erector Goals Aerial Erector Goals PT Nursing Home Goals Time Frame: Mar 29, 2017 Transfers (B,C,W/C) (FIM): 4 Gait (FIM): 2 Gait distance (FIM): 5=530-63 ft Distance: 75' Gait Level of Assist: 4 Gait Assistive Device: FWW PT Plan Treatment/Plan Treatment Plan: Modify Plan, see comments Treatment Plan: Bed Mobility, Education, Functional Activity Deana, Functional Strength, Gait, Safety, Therapeutic Exercise, Transfers Treatment Duration: Mar 29, 2017 Frequency: 5 times per week Estimated Hrs Per Day: .25 hour per day (15-30') Patient and/or Family Agrees t: Yes Time/GCodes Time In: 905 Time Out: 915 Total Billed Treatment Time: 10 Total Billed Treatment 1 visit FA 10 min ONELIA JAMES PT Mar 24, 2017 09:40
[2017-03-24] MEDS: VANCOMYCIN 1500 MG/NS 500 ML IVPB IV SCH ×2 (10:32)
[2017-03-24] MEDS ORDERED: HALO5AMP2 IM (11:27)
[2017-03-24] MEDS ORDERED: DVL125C PO (11:27)
[2017-03-24] MEDS ORDERED: HALO1TAB PO (11:27)
[2017-03-24] MEDS ORDERED: FLUC100T6 PO (11:27)
[2017-03-24] MEDS ORDERED: MAGN200T PO (11:32)
[2017-03-24] MEDS ORDERED: POTA10TA36 PO (11:32)
--- NOTE | 2017-03-24 11:34 | Discharge Inst-Skilled Nursing ---
Discharge Inst-Skilled NF Patient Instructions Patient Problems: URINARY TRACT INFECTION FATIGUE WEAKNESS ABDOMINAL PAIN NAUSEA DEMENTIA HYPOKALEMIA ANEMIA Goal: STABILIZATION OF AGITATION/AGGRESSIVE BEHAVIORS TREATMENT OF CANDIDAL URINARY TRACT INFECTION Consult/Follow Up/Orders Follow Up Appt.: 1 WEEK [facility] Skilled NF Admit to: [facility] Certification (SNF) I certify that SNF services are required to be given on an inpatient basis because of the above named patient's need for [place] [facility] care on a continuing basis for the conditions(s) for which he/she was receiving inpatient hospital services prior to his/her transfer to the [facility]. Long Term Facility Order: Nursing Services, Transportation Department Head-Evaluate & Treat, Physical Therapy-Evaluate & Treat, Speech Language-Evaluate & Treat Discharge Diet: Regular Diet Daily Activity as Tolerated: Yes New & Resume Previous Orders New & Resume Previous Orders Active Scripts Active Magnesium 200 Mg Tablet 200 Mg PO Q48H 30 Days Potassium Chloride 10 Meq Tab.er.prt 10 Meq PO DAILY 30 Days Haloperidol (Haloperidol Lactate) 5 Mg/1 Ml Ampul 2 Mg IM BID PRN 30 Days USE AFTER ORAL HALDOL-ONLY USE FOR AGGRESSIVE/SEVERELY AGITATED BEHAV, OTHER MEANS TO CALM PT PRIOR TO USE Haloperidol 1 Mg Tablet 1 Mg PO TID PRN 30 Days USE FOR AGGRESSIVE OR SEVERELY AGITATED BEHAVIORS, TRY OTHER MEANS TO CALM PATIENT PRIOR TO USE Fluconazole 100 Mg Tablet 100 Mg PO DAILY 7 Days Depakote Sprinkle (Divalproex Sodium) 125 Mg Cap 125 Mg PO Q8H PRN 30 Days Reported Lactulose 20 Gm/30 Ml Solution 15 Ml PO BID Duragesic Patch 50MCG (Fentanyl) 1 Each Patch.td72 50 Mcg TD Q72H Xanax (Alprazolam) 0.25 Mg Tablet 0.25 Mg PO Q12H Hydrocodon-Acetaminoph 7.5-325 (Hydrocodone/Acetaminophen) 1 Each Tablet 1 Tab PO TID Acidophilus (Lactobacillus Acidophilus) 100 Mg Capsule 1 Cap PO BID START DATE 03-17-17 STOP DATE 03-25-17 Doxycycline Hyclate 100 Mg Capsule 100 Mg PO BID START DATE 03-17-17 STOP DATE 03-25-17 Xanax (Alprazolam) 0.25 Mg Tablet 0.25 Mg PO 1200,0000 PRN Ondansetron Odt (Ondansetron) 4 Mg Tab.rapdis 4 Mg PO Q6H PRN Acetaminophen 500 Mg Tablet 1,000 Mg PO Q4H PRN Miralax (Polyethylene Glycol 3350) 17 Gm Powd.pack 17 Gm PO DAILY PRN Letrozole 2.5 Mg Tablet 2.5 Mg PO DAILY Colace (Docusate Sodium) 100 Mg Capsule 100 Mg PO DAILY Aspir 81 (Aspirin) 81 Mg Tablet. 81 Mg PO DAILY Omeprazole 20 Mg Tablet. 20 Mg PO DAILY Violet Ha Mar 24, 2017 11:32 VIOLET HA MD Mar 24, 2017 11:34
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
[2017-03-24] MEDS: PHENAZOPYRIDINE 100 MG (PYRIDIUM) TABLET PO SCH (13:44)
== END 2017-03-24 15:35 | DRG 758 ==
LOC: EDUNIT# 20:16 → ER 20:17 → 4TH 22:55 → EDPENDDISTM 03-24 12:30
PROVIDERS: ADMIT Family Medicine; ATTEND Family Medicine
DX: B37.41 Candidal cystitis and urethritis (principal); F03.91 Unspecified dementia, unspecified severity, with behavioral disturbance; E87.6 Hypokalemia; I10 Essential (primary) hypertension; F41.9 Anxiety disorder, unspecified; F32.9 Major depressive disorder, single episode, unspecified; D64.9 Anemia, unspecified; Z66 Do not resuscitate; M54.9 Dorsalgia, unspecified; K59.09 Other constipation; E66.9 Obesity, unspecified; I67.9 Cerebrovascular disease, unspecified; Z86.14 Personal history of Methicillin resistant Staphylococcus aureus infection; Z68.38 Body mass index [BMI] 38.0-38.9, adult; Z85.3 Personal history of malignant neoplasm of breast; Z90.12 Acquired absence of left breast and nipple; Z85.828 Personal history of other malignant neoplasm of skin
CPT/HCPCS: 36415; 80048; 80053; 80202; 81000; 83735; 85025; 85027; 87088; 96361; 96365

== ENCOUNTER → 2017-03-31 | Outpatient (CLI) | payer MEDICARE ==
[~2017-03-31] MED LIST changes: +DOXY100C2 PO; +FENT1PAT58 TD; +FLUC100T6 PO; +HALO1TAB PO; +HALO5AMP2 IM; +LACT100C2 PO; +MAGN200T PO; +POTA10TA36 PO
[2017-03-31 12:47] LABS: KETONES,URINE 3+ (NEGATIVE); LEUKOCYTE ESTERASE ,URINE 2+ (NEGATIVE); NITRITE,URINE NEGATIVE (NEGATIVE); PH,URINE 6 (5-9); PROTEIN,URINE 2+ (NEGATIVE); UROBILINOGEN,URINE 4 MG/DL (NORMAL)
[2017-03-31 13:03] LABS: BILIRUBIN,URINE 1+ (NEGATIVE); WBC,URINE 50-100 /HPF; YEAST,URINE MODERATE /HPF
== END ==
LOC: CVS 12:40
PROVIDERS: ATTEND Family Medicine
DX: N39.0 Urinary tract infection, site not specified (principal)
CPT/HCPCS: 81000; 87088

== ENCOUNTER → 2017-04-01 | Outpatient (CLI) | payer MEDICARE ==
[2017-04-01 08:11] LABS: ANION GAP 13 MMOL/L (5-14); BLOOD UREA NITROGEN 25 MG/DL (7-18); BUN/CREATININE RATIO 36; CALCIUM 9.2 MG/DL (8.5-10.1); CARBON DIOXIDE 28 MMOL/L (21-32); CHLORIDE 105 MMOL/L (98-107); GFR ESTIMATED > 60; GLUCOSE 85 MG/DL (70-105); POTASSIUM 2.6 MMOL/L (3.6-5.0); SODIUM 146 MMOL/L (135-145)
== END ==
LOC: CVS 07:00
PROVIDERS: ATTEND Urology
DX: I10 Essential (primary) hypertension (principal)
CPT/HCPCS: 80048

== ENCOUNTER → 2017-04-03 | Outpatient (CLI) | payer MEDICARE, OTHER ==
--- NOTE | 2017-04-03 14:14 | Diagnostic Imaging Report ---
PROCEDURE: CT abdomen and pelvis without contrast. TECHNIQUE: Multiple contiguous axial images were obtained through the abdomen and pelvis without the use of intravenous contrast. INDICATION: Abdominal pain. Back pain. FINDINGS: The lung bases demonstrate minimal atelectasis and calcified granuloma in the left lung base. The liver, the spleen, the pancreas, and adrenals appear unremarkable. Cholecystectomy clips are seen. The kidneys demonstrate no stones or hydronephrosis. There is a 1.8 cm cystic lesion seen within the mid left kidney. The urinary bladder appears unremarkable. There is evidence of prior hysterectomy. There is a distention of the rectum with a large amounts of fecal material and the moderate amounts of fecal material seen in the mid to distal colon. There is slight stranding fat posterior to the rectum and the presacral soft tissue is seen. This could be related to proctitis. There is diverticulosis. No diverticulitis. The abdominal aorta is normal in caliber. No periaortic significantly enlarged lymph nodes seen. There is compression fracture of T12 vertebral body and scoliosis convex to the right of the lumbar spine. Prominent degenerative changes of the hip joints also seen. IMPRESSION: 1. There is a rectal distention with large amount of fecal material may relate to constipation and mild rectal impaction. Mild inflammatory changes posterior to the rectum may indicate an element of proctitis as well. 2. Diverticulosis. No diverticulitis. Dictated by: Dictated on workstation # [id number]
== END ==
LOC: RAD 13:16
PROVIDERS: ATTEND Urology
DX: K59.00 Constipation, unspecified (principal); K57.30 Diverticulosis of large intestine without perforation or abscess without bleeding; Z87.440 Personal history of urinary (tract) infections
CPT/HCPCS: 74176

== ENCOUNTER → 2017-05-01 | Outpatient (CLI) | payer MEDICARE ==
--- NOTE | 2017-05-01 10:28 | Diagnostic Imaging Report ---
PROCEDURE: MRI lumbar spine. TECHNIQUE: Multiplanar, multisequence MRI of the lumbar spine was performed without contrast. INDICATION: Back pain. Exam compared with study 02/15/2017. FINDINGS: Since the prior, there has been progressive fragmentation and collapse of the abnormal T12 vertebral body. There is increased fluid within the vertebral body itself and its inferior endplate retropulsion has progressed. The ventral epidural collection posterior to the T12 and L1 vertebral bodies, however, no longer identified and there has been interval decompressive laminectomy at the T12-L1 level without fluid collection. Despite increased retropulsion, canal stenosis is much improved and only mild on followup with no compression of the lower cord or conus medullaris. Marrow edema at the L1 superior endplate and L1 superior endplate irregularity and stature loss is also progressed. Fluidlike signal intensity within the T12-L1 disc space itself, however, improved. No paravertebral fluid collection. Posterior to the L3 vertebral body, there was a ventral epidural collection measuring 7 mm on prior this has also resolved. No residual or recurrent fluid collections. At the L2 vertebral body level as well as disc spaces above and below, there has been resolution of stenosis postlaminectomy. L3-L4: Moderate canal stenosis with left greater than right foraminal stenosis stable. L4-L5: There is severe canal and right greater than left foraminal stenoses unchanged. Canal stenosis owing to ligamentous thickening, facet arthrosis, disc bulge and endplate osteophytes. L5-S1: Severe canal stenosis and mild bi-foraminal narrowing predominately owing to ligamentous thickening, disc bulge and endplate osteophytes is unchanged. IMPRESSION: 1. The ventral epidural fluid collections dorsal to multiple lumbar vertebral bodies have resolved in the interim with substantial improvements in mid-upper lumbar stenoses owing to multilevel decompressive laminectomies. No residual or recurrent fluid collection. 2. However, progressive fragmentation, collapse and irregularity of T12 vertebral body as well as new superior endplate stature loss at the adjacent edematous L1 level. Remaining osseous structures nonacute. 3. Lower lumbar spinal stenoses on a degenerative basis stable. Dictated by: Dictated on workstation # [id number]
== END ==
LOC: RAD 08:52
PROVIDERS: ATTEND Orthopaedic Surgery
DX: M48.54XA Collapsed vertebra, not elsewhere classified, thoracic region, initial encounter for fracture (principal); M47.816 Spondylosis without myelopathy or radiculopathy, lumbar region; M48.061 Spinal stenosis, lumbar region without neurogenic claudication; Z98.1 Arthrodesis status
CPT/HCPCS: 72148

== ENCOUNTER 2017-11-28 05:37 | Outpatient (CLI) | payer MEDICARE, MEDICAID ==
[~2017-11-28] VITALS: Ht 157.5 cm; Wt 74.6 kg
[~2017-11-28 05:37] MED LIST changes: +HYDR-34 PO; -HYDR-3816 PO
[2017-11-29] MEDS ORDERED: TRAZ-28 PO (15:17)
[2017-11-29] MEDS ORDERED: FURO-124 PO (15:17)
[2017-11-29] MEDS ORDERED: CRAN450C PO (15:17)
[2017-11-29] MEDS ORDERED: SPIR25TA3 PO (15:17)
[2017-11-29] MEDS ORDERED: MAGN400T6 PO (15:17)
[2017-11-29] MEDS ORDERED: DIVA125C10 PO (15:17)
[2017-11-29] MEDS ORDERED: POTA-51 PO (15:17)
[2017-11-29] MEDS ORDERED: NITR-68 PO (15:17)
[2017-11-29] MEDS ORDERED: DIVA250T4 PO (15:17)
[2017-11-29] MEDS ORDERED: ASCO500C17 PO (15:17)
[2017-11-29] MEDS ORDERED: PANT20TA3 PO (15:17)
== END 2017-11-29 15:27 ==
LOC: PREOP 05:37
PROVIDERS: ATTEND Specialist
DX: Z01.818 Encounter for other preprocedural examination (principal)

== ENCOUNTER 2017-12-20 14:45 | Outpatient (CLI) | payer MEDICARE, MEDICAID ==
[~2017-12-20] VITALS: Ht 157.5 cm; Wt 74.6 kg
[~2017-12-20 14:45] MED LIST changes: +ASCO500C17 PO; +CRAN450C PO; +DIVA125C10 PO; +DIVA250T4 PO; +FURO-124 PO; +MAGN400T6 PO; +NITR-68 PO; +PANT20TA3 PO; +POTA-51 PO; +SPIR25TA3 PO; +TRAZ-28 PO
== END 2017-12-20 14:52 ==
LOC: PREOP 14:45
PROVIDERS: ATTEND Specialist
DX: Z01.818 Encounter for other preprocedural examination (principal)

== ENCOUNTER 2017-12-22 07:40 | Day surgery (SDC) | payer MEDICARE, MEDICAID ==
[~2017-12-22] VITALS: Ht 157.5 cm; Wt 74.6 kg
[2017-12-22] MEDS: TETRACAINE 0.5% OPHTH SOLN 4 ML BTL (SINGLE DOSE ONLY) OU PRN ×4 (07:59→08:17)
[2017-12-22] MEDS ORDERED: VANCOMYCIN/BSS (COMPOUNDED) 10 MG/ML SYR OP ONE (08:00)
[2017-12-22] MEDS ORDERED: POVIDONE (BETADINE) OPHTH SOLN 5% 30 ML OP ONE (08:00)
[2017-12-22] MEDS ORDERED: EPINEPHrine INJECTION 1 MG/ML AMP INJ ONE (08:00)
[2017-12-22] MEDS ORDERED: LIDOCAINE PF 1% 2 ML AMP IR PRN (08:00)
[2017-12-22] MEDS ORDERED: TIMOLOL MALEATE 0.5% 5 ML (TIMOPTIC) BTL OU PRN (08:00)
[2017-12-22 08:01] VITALS: BP 136/82
[2017-12-22] MEDS: PHENYLEPHRINE 10% OPHTH (NEO-SYN) 5 ML BTL OU SCH ×3 (08:05→08:17)
[2017-12-22] MEDS: CYCLOPENTOLATE 1% (CYCLOGYL) 2 ML DROPS OP SCH ×3 (08:05→08:17)
[2017-12-22] MEDS ORDERED: MIDAZOLAM 2 MG/2 ML (VERSED) VIAL ONE (08:57)
--- NOTE | 2017-12-22 08:58 | Ophthalmologist Pre-Op Note ---
Pre-Operative Progress Note H&P Reviewed The H&P was reviewed, patient examined and no changes noted. Date H&P Reviewed: Dec 22, 2017 Time H&P Reviewed: 08:58 Pre-Op Dx Cataract, Left Eye HARLEEN OCHOA MD Dec 22, 2017 08:58
--- NOTE | 2017-12-22 09:22 | Ophthalmology Operative Report ---
Cataract removal/placement IOL PREOPERATIVE DIAGNOSIS: Cataract Left Eye POSTOPERATIVE DIAGNOSIS: Cataract Left Eye PROCEDURE: Cataract removal and placement of posterior chamber implant, left eye SURGEON: Eduardo Ochoa ANESTHESIA: Topical with sedation COMPLICATIONS: None ESTIMATED BLOOD LOSS: Minimal DESCRIPTION OF PROCEDURE: After proper informed consent was obtained, the patient, a 82 female, was taken to the Operating Room and the left eye was anesthetized with tetracaine. The left eye was then prepped and draped in the usual manner. A wire lid speculum was placed. A paracentesis was made at the left hand position. Preservative free lidocaine was injected into the anterior chamber followed by viscoelastic. A clear corneal incision was made in the temporal position. A capsulorrhexis was preformed and the central nuclear and cortical material were removed. The posterior capsule was polished and an Rai 20.5 [id number] IOL was placed into the capsular bag. The residual viscoelastic was aspirated and balanced saline solution was injected into the anterior chamber. 0.1 ml of Vancomycin (1mg/0.1ml ) was injected into the anterior chamber. The wound was checked and found to be water tight. The patient tolerated the procedure well without complications. EDUARDO OCHOA MD Dec 22, 2017 09:22
[2017-12-22 09:40] VITALS: BP 121/65
--- NOTE | 2017-12-22 10:35 | Anesthesia-General Post-Op ---
MAC Patient Condition Mental Status/LOC: Same as Preop Cardiovascular: Satisfactory Nausea/Vomiting: Absent Respiratory: Satisfactory Pain: Controlled Complications: Absent Post Op Complications Complications None Follow Up Care/Instructions Patient Instructions None needed. Anesthesiology Discharge Order Discharge Order Patient is doing well, no complaints, stable vital signs, no apparent adverse anesthesia problems. No complications reported per nursing. NATALY MCCULLOUGH CRNA Dec 22, 2017 10:35
== END 2017-12-22 09:40 | disposition home or self-care (01) ==
LOC: SDC 07:40
PROVIDERS: ATTEND Specialist
DX: H26.9 Unspecified cataract (principal); I10 Essential (primary) hypertension; Z79.82 Long term (current) use of aspirin; Z79.899 Other long term (current) drug therapy

== ENCOUNTER → 2019-02-26 | Outpatient (CLI) | payer MEDICARE ==
[~2019-02-26] MED LIST changes: +DIVA-74 PO; +DIVA125C PO; -DIVA250T4 PO; -DVL125C PO; -SPIR25TA3 PO; +SPIR25TA5 PO; +TRAZ-222 PO; -TRAZ-28 PO
--- NOTE | 2019-02-26 12:25 | Diagnostic Imaging Report ---
PROCEDURE: CT thoracic and lumbar spine without contrast. TECHNIQUE: Multiple contiguous axial images were obtained through the thoracic and lumbar spine without the use of intravenous contrast. Sagittal and coronal reformations were then performed. INDICATION: Longstanding back pain, progressive in severity. COMPARISON: Study correlated with an MRI lumbar spine performed on 05/01/2017 and thoracic MRI of 02/15/2017. 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 The T12-L1 levels each showed substantial vertebral body stature loss, most notably at T12 and now the levels appear as a single fused vertebral body moiety with retropulsion across their fused articulation of about 13 mm. The canal is decompressed by wide laminectomy and no identifiable fluid collection. There are chronic-appearing endplate irregularities at the T12 superior endplate. At CT, there were no findings to suggest active infection however MRI is a much more sensitive modality for detecting marrow edema and if recurrence or residual infection is suspected, MRI would be recommended. The remaining levels were stable and unremarkable with mild multilevel anterior spondylosis without resultant stenosis. There is moderate degree of bony biforaminal stenosis across the intervally fused level. Remaining levels showed no substantial stenosis. Lumbar spine: T12, L1, L2, and L3 laminectomies performed without evidence for fluid collection. See above for discussions across the thoracolumbar junction where chronic-appearing findings are present. At the levels of laminectomy, the canal is widely patent. At L3-L4, ligamentous thickening results in moderate canal stenosis and mild biforaminal narrowing. At L4-L5, disc bulge, endplate osteophytes, facet arthrosis, and ligamentous thickening result in severe canal stenosis with moderate right and mild left foraminal narrowing. At the L5-S1 level, disc material and posterior element hypertrophy result in a [id number]-[id number] degree of canal stenosis with mild left and moderate right foraminal narrowing. No fracture identified and an acute-appearing abnormality is not apparent. IMPRESSION: 1. Bony remodeling and ankylosis and fusion across the T12-L1 level where previous osteomyelitis and discitis was confirmed. Canal is decompressed by laminectomy across and below that level without substantial residual canal stenosis but there is bony biforaminal narrowing at the T12-L1 level. No fluid collection or CT-apparent acute pathology. There is lumbar greater than thoracic spondylosis with substantial degrees of multilevel big-cf-[id number] lumbar canal and foraminal stenosis. 2. Again, an acute-appearing abnormality at this exam is not apparent but if recurrent or residual infection is suspected, would suggest MRI as followup. Dictated by: Dictated on workstation # [id number]
== END ==
LOC: RAD FS 08:08
PROVIDERS: ATTEND Family Medicine
DX: M48.061 Spinal stenosis, lumbar region without neurogenic claudication (principal); M48.05 Spinal stenosis, thoracolumbar region; M47.816 Spondylosis without myelopathy or radiculopathy, lumbar region; M47.814 Spondylosis without myelopathy or radiculopathy, thoracic region; M19.90 Unspecified osteoarthritis, unspecified site; Z98.1 Arthrodesis status
CPT/HCPCS: 72128; 72131

== ENCOUNTER → 2019-03-28 | Outpatient (CLI) | payer MEDICARE ==
[2019-03-28 13:51] LABS: BASOPHILS % (AUTO) 1 % (0-10); EOSINOPHILS # (AUTO) 0.2 10^3/uL (0.0-0.3); EOSINOPHILS % (AUTO) 3 % (0-10); HEMATOCRIT 40 % (35-52); HEMOGLOBIN 13.5 G/DL (11.5-16.0); LYMPHOCYTES # (AUTO) 1.8 X 10^3 (1.0-4.0); LYMPHOCYTES % (AUTO) 23 % (12-44); MEAN CORPUSCULAR HEMOGLOBIN 30 PG (25-34); MEAN CORPUSCULAR HGB CONC 34 G/DL (32-36); MEAN CORPUSCULAR VOLUME 88 FL (80-99); MEAN PLATELET VOLUME 9.6 FL (7.4-10.4); MONOCYTES # (AUTO) 0.9 X 10^3 (0.0-1.0); MONOCYTES % (AUTO) 11 % (0-12); NEUTROPHILS # (AUTO) 4.9 X 10^3 (1.8-7.8); NEUTROPHILS % (AUTO) 62 % (42-75); PLATELET COUNT 247 10^3/uL (130-400); RED CELL DISTRIBUTION WIDTH 14.2 % (10.0-14.5); WHITE BLOOD COUNT 7.9 10^3/uL (4.3-11.0)
[2019-03-28 14:09] LABS: BILIRUBIN,TOTAL 0.4 MG/DL (0.1-1.0); CALCIUM 9.2 MG/DL (8.5-10.1); CREATININE SERUM 0.94 MG/DL (0.60-1.30); POTASSIUM 3.7 MMOL/L (3.6-5.0); TOTAL PROTEIN 6.5 GM/DL (6.4-8.2)
== END ==
LOC: ONC 13:26
PROVIDERS: ATTEND Internal Medicine Hematology & Oncology
DX: C50.512 Malignant neoplasm of lower-outer quadrant of left female breast (principal); I89.0 Lymphedema, not elsewhere classified; Z79.810 Long term (current) use of selective estrogen receptor modulators (SERMs)
CPT/HCPCS: 36415; 80053; 85025; 99213

== ENCOUNTER → 2020-06-25 | Outpatient (CLI) | payer MEDICARE ==
[~2020-06-25] MED LIST changes: -ACET-77 PO; +ACET-78 PO; -LETR2.5T5 PO; +LETR2.5T6 PO; -MAGN400T6 PO; +MAGN400T8 PO; +PANT20TA18 PO; -PANT20TA3 PO; -TRAM50TA2 PO; -TRAZ-222 PO; +TRM50T PO; +TRZ50T PO
[2020-06-25 15:03] LABS: BASOPHILS # (AUTO) 0.1 10^3/uL (0.0-0.1); BASOPHILS % (AUTO) 1 % (0-10); EOSINOPHILS # (AUTO) 0.2 10^3/uL (0.0-0.3); EOSINOPHILS % (AUTO) 3 % (0-10); HEMATOCRIT 45 % (35-52); HEMOGLOBIN 14.7 g/dL (11.5-16.0); LYMPHOCYTES # (AUTO) 2.9 10^3/uL (1.0-4.0); LYMPHOCYTES % (AUTO) 32 % (12-44); MEAN CORPUSCULAR HEMOGLOBIN 29 pg (25-34); MEAN CORPUSCULAR HGB CONC 33 g/dL (32-36); MEAN CORPUSCULAR VOLUME 88 fL (80-99); MEAN PLATELET VOLUME 9.6 fL (9.0-12.2); MONOCYTES # (AUTO) 0.7 10^3/uL (0.0-1.0); MONOCYTES % (AUTO) 8 % (0-12); NEUTROPHILS # (AUTO) 5.1 10^3/uL (1.8-7.8); NEUTROPHILS % (AUTO) 56 % (42-75); PLATELET COUNT 272 10^3/uL (130-400); WHITE BLOOD COUNT 9.2 10^3/uL (4.3-11.0)
[2020-06-25 15:29] LABS: ALBUMIN 4.2 GM/DL (3.2-4.5); BILIRUBIN,TOTAL 0.4 MG/DL (0.1-1.0); CALCIUM 9.4 MG/DL (8.5-10.1); CREATININE SERUM 0.94 MG/DL (0.60-1.30); POTASSIUM 4.5 MMOL/L (3.6-5.0); TOTAL PROTEIN 7.3 GM/DL (6.4-8.2)
== END ==
LOC: ONC 14:49
PROVIDERS: ATTEND Internal Medicine Hematology & Oncology
DX: C50.512 Malignant neoplasm of lower-outer quadrant of left female breast (principal); F03.90 Unspecified dementia, unspecified severity, without behavioral disturbance, psychotic disturbance, mood disturbance, and anxiety
CPT/HCPCS: 80053; 85025; G0463; 99213

== ENCOUNTER → 2020-09-10 | Outpatient (CLI) | payer MEDICARE ==
--- NOTE | 2020-09-10 17:02 | Diagnostic Imaging Report ---
HISTORY: Generalized abdominal pain. Constipation since yesterday. COMPARISON: None TECHNIQUE: Frontal views of the abdomen FINDINGS: No distended loops of small bowel are seen. There is no large collection of free air. There is a moderate amount of stool in the colon. Cholecystectomy clips are noted. There are advanced degenerative changes in the lumbar spine and chronic compression deformity at T12. IMPRESSION: 1. Moderate stool in the colon. No small bowel distention is seen. Dictated by: Dictated on workstation # [id number]
== END ==
LOC: RAD FS 15:52
PROVIDERS: ATTEND Nurse Practitioner Family
DX: K59.09 Other constipation (principal); R10.84 Generalized abdominal pain
CPT/HCPCS: 74018

== ENCOUNTER 2020-09-25 05:40 | Outpatient (CLI) | payer MEDICARE ==
[~2020-09-25] VITALS: Ht 152.4 cm; Wt 90.8 kg
[2020-09-25] MEDS ORDERED: ESOM20CA PO (10:45)
[2020-09-25] MEDS ORDERED: FURO20TA4 PO (10:45)
[2020-09-25] MEDS ORDERED: ASPI-999 PO (10:45)
[2020-09-25] MEDS ORDERED: CRAN450T9 PO (10:45)
[2020-09-25] MEDS ORDERED: CELE100C PO (10:45)
== END 2020-09-25 12:24 | disposition home or self-care (01) ==
LOC: PREOP 05:40
PROVIDERS: ATTEND Surgery
DX: Z01.818 Encounter for other preprocedural examination (principal)

== ENCOUNTER → 2020-09-28 | Outpatient (CLI) | payer MEDICARE ==
[~2020-09-28] MED LIST changes: +ASPI-999 PO; +CELE100C PO; +CRAN450T9 PO; +ESOM20CA PO; +FURO20TA4 PO
== END ==
LOC: LAB FS 10:00
PROVIDERS: ATTEND Nurse Practitioner Family
DX: Z01.812 Encounter for preprocedural laboratory examination (principal); Z12.11 Encounter for screening for malignant neoplasm of colon; K21.9 Gastro-esophageal reflux disease without esophagitis; Z20.822 Contact with and (suspected) exposure to COVID-19; Z80.0 Family history of malignant neoplasm of digestive organs
CPT/HCPCS: 87635

== ENCOUNTER 2020-09-30 10:58 | Day surgery (SDC) | payer MEDICARE ==
[2020-09-30] VITALS (18 sets, daily range): BP systolic 112–192; BP diastolic 55–116
[~2020-09-30] VITALS: Ht 152.4 cm; Wt 90.8 kg
[2020-09-30] MEDS ORDERED: LIDOCAINE JELLY 2% 6 ML SYRINGE MM PRN (11:15)
[2020-09-30] MEDS ORDERED: HURRICAINE EXT TUBE (BENZOCAINE) XX PRN (11:15)
[2020-09-30] MEDS ORDERED: MIDAZOLAM 5 MG/5 ML (VERSED) VIAL IV ONE (11:15)
[2020-09-30] MEDS ORDERED: fentaNYL INJ 100 MCG/2 ML AMP IVP ONE (11:15)
[2020-09-30] MEDS ORDERED: NS IV 500 ML 500 ML IV PRN (11:15)
--- NOTE | 2020-09-30 11:30 | Conscious Sedation/ASA ---
Conscious Sedation Pre-Proced Time 11:00 ASA Score 2 For ASA 3 and 4: Consider anesthesia and medical clearance. Also, for patients with a history of failed moderate sedation consider anesthesia. Airway Lungs Heart ASA score ASA 1: a normal healthy patient ASA 2: a patient with a mild systemic disease (mid diabetes, controlled hypertension, obesity ASA 3: a patient with a severe systemic disease that limits activity (angina, COPD, prior Myocardial infarction) ASA 4: a patient with an incapacitating disease that is a constant threat to life (CHF, renal failure) ASA 5: a moribund patient not expected to survive 24 hrs. (ruptured aneurysm) ASA 6: a declared brain- patient whose organs are being harvested. For emergent operations, add the letter E after the classification Mallampati Classification Grade 2 Sedation Plan Analgesia, Amnesia, Plan communicated to team members, Discussed options with patient/fam, Discussed risks with patient/fam The patient is an appropriate candidate to undergo the planned procedure, sedation, and anesthesia. The patient immediately re-assessed prior to indication. MICHELLE PUCKETT MD Sep 30, 2020 11:30
--- NOTE | 2020-09-30 11:31 | Progress Note-Pre Operative ---
Pre-Operative Progress Note H&P Reviewed The H&P was reviewed, patient examined and no changes noted. Date Seen by Provider: Sep 30, 2020 Time Seen by Provider: 11:00 Date H&P Reviewed: Sep 30, 2020 Time H&P Reviewed: 11:00 Pre-Operative Diagnosis: MICHELLE MYAA MD Sep 30, 2020 11:31
--- NOTE | 2020-09-30 11:32 | Discharge Inst-Surgical ---
D/C Lap Instructions-ITALO Follow Up Appt in 2 weeks Activity as tolerated High Fiber Diet 25g or more per day Avoid Alcohol, Caffeine, Spicy [place] and Acid foods. Drink 64 fluid oz or more of fluids per day. Symptoms to Report: Fever over 101 degree F, Nausea/Vomiting If any problems/questions: Contact your physician or go to Emergency Room MICHELLE PUCKETT MD Sep 30, 2020 11:32
[2020-09-30] MEDS ORDERED: HYDROcodone/APAP 5 MG/325 MG (LORTAB) TAB PO PRN (11:45)
[2020-09-30] MEDS ORDERED: ONDANSETRON 4 MG/2 ML (SDV) Z0FRAN IVP PRN (11:45)
[2020-09-30] MEDS ORDERED: ACETAMINOPHEN 325 MG TABLET PO PRN (11:45)
[2020-09-30] MEDS ORDERED: morphine INJ 10 MG/ML 1ML (SYR OR VIAL) IVP PRN (11:45)
[2020-09-30] MEDS ORDERED: MIDAZOLAM 5 MG/5 ML (VERSED) VIAL ONE ×2 (11:56)
[2020-09-30] MEDS ORDERED: fentaNYL INJ 100 MCG/2 ML AMP ONE (11:56)
[2020-09-30] MEDS ORDERED: LIDOCAINE JELLY 2% 6 ML SYRINGE ONE (11:56)
[2020-09-30] MEDS ORDERED: HURRICAINE EXT TUBE (BENZOCAINE) ONE (11:57)
--- NOTE | 2020-09-30 13:21 | Progress Note-Post Operative ---
Post-Operative Progess Note Surgeon (s)/[employer] Instrument Repairer (s) Surgeon MICHELLE PUCKETT MD [employer] Instrument Repairer: none Pre-Operative Diagnosis GERD, family hx colon ca Post-Operative Diagnosis reflux esophagitis(stage 2-3), large type 3 HH(5cm), mild gastritis. chronic stage 2 ext and int hemorrhoids, moderate sigmoid diverticulosis. Procedure & Operative Findings Date of Procedure 09/30/20 Procedure Performed/Findings EGD with bx. colonoscopy. Anesthesia Type cs Estimated Blood Loss Estimated blood loss (mL): minimal Specimens/Packing Specimens Removed ge jxn, antrum MICHELLE PUCKETT MD Sep 30, 2020 13:21
--- NOTE | 2020-09-30 19:17 | OPERATIVE REPORT ---
DATE OF SERVICE: 09/30/2020 ATTENDING [employer]LO[employer]NALYTICS HEAD: Christi Giraldo APRN PREOPERATIVE DIAGNOSES: Gastroesophageal reflux disease, screening colonoscopy with family history of colon cancer. POSTOPERATIVE DIAGNOSES: Reflux esophagitis between stage II and III, large type 3 hiatal hernia approximately 5 cm in size. Chronic stage II external and internal hemorrhoids, moderate sigmoid diverticulosis. PROCEDURE: EGD with biopsy, colonoscopy. SURGEON: Michelle Puckett MD. ANESTHESIA: Conscious sedation. ESTIMATED BLOOD LOSS: Minimal. FINDINGS: Reflux esophagitis between stage II and III, large type 3 hiatal hernia approximately 5 cm in size. Chronic stage II external and internal hemorrhoids, moderate sigmoid diverticulosis. DISPOSITION: The patient tolerated the procedure well. INDICATIONS: The patient is an 84-year-old female, who is referred over to us for an EGD as well as a colonoscopy. She has struggled with reflux for many years; however, this has become worse over time. She reports that she does have frequent regurgitation as well. She does not report any hematemesis, no coffee ground emesis. She states that she did have an EGD several years ago; however, cannot recall the results of the test. She is also in need of a colonoscopy for her last one was several years ago, and she was found to have 1 polyp, which she believes to be benign. She does have a family history of colon cancer with her brother having the disease. She does not report any red blood per rectum nor any dark tarry stools. DESCRIPTION OF PROCEDURE: The patient was brought to the endoscopy suite, laid in the left lateral decubitus position. After adequate IV pain and sedative medications and conscious sedation anesthesia, the mouthpiece was applied. The endoscope was then placed in the mouth, visualizing the pharynx and hypopharyngeal region. Vocal cords, epiglottis and vallecula identified and appeared to be normal. The endoscope was then gently intubated into esophageal opening and esophagus insufflated. The endoscope was then advanced to the first, second and third portion of the esophagus at the level of the GE junction, a reflux esophagitis between stage II and III identified. The GE junction was also intrathoracic consistent with a hiatal hernia. The endoscope was then advanced in the stomach and endoscope retroflexed, visualizing a significant size hiatal hernia approximately 5 cm in size. This appeared to be a type 3 hiatal hernia with the GE junction within the mediastinum. There was a mild gastritis. No formal ulcerations, polyps, or any neoplasms. A biopsy was taken of the antrum to rule out H. pylori with visualization of good hemostasis. The endoscope was then advanced through the pylorus and the first and second portion of the duodenum with no ulcerations or any distal obstructions. Endoscope was then slowly withdrawn while taking a second look and suctioning of residual air with no additional findings. We then proceeded with the colonoscopy portion of procedure. A digital rectal examination was performed, which revealed chronic stage II external and internal hemorrhoids, not actively edematous nor inflamed and no bleeding. Normal sphincter tone was felt and there were no palpable masses. The endoscope was then intubated and anus and rectum gently insufflated. The endoscope was then advanced through the valves of Ben[place]z of the rectum with no polyps or any neoplasms identified. Through the sigmoid colon, a moderate sigmoid diverticulosis identified. There were no mucosal inflammatory changes to indicate any active diverticulitis. The endoscope was then advanced to the remainder of the descending, transverse and ascending colon to the cecum, which were normal. There were no polyps or any neoplasms identified. The endoscope was then slowly withdrawn while taking a second look and suctioning of residual air with no additional findings. The patient tolerated the procedure well. She does have a significant size hiatal hernia, type 3 hiatal hernia, which will cause issues with reflux and regurgitation as well as an intermittent dysphagia. Due to her age as well as other medical comorbidities, we will recommend a conservative medical management and the necessary lifestyle and diet accommodation, which will encompass small and more frequent meals, avoiding to eating at night as well as head elevation while lying supine. She is on Nexium daily, but we will also add omeprazole 40 mg daily in hopes of decreasing of her symptomatology of her reflux. We will also recommend a high fiber diet with at least 25 grams of fiber daily to promote soft stools on a daily basis. The goal would be to prevent any further propagation of diverticulosis or complications related to them. No polyps were identified, and we will recommend a followup colonoscopy in 5 years. Job ID: [id number] DocumentID: [id number] Dictated Date: 09/30/2020 13:13:26 Sales Service Supervisor Date: 09/30/2020 19:15:58 Dictated By: MICHELLE PUCKETT MD
== END 2020-09-30 14:15 | disposition home or self-care (01) ==
LOC: ENDO 10:58
PROVIDERS: ATTEND Surgery
DX: Z12.11 Encounter for screening for malignant neoplasm of colon (principal); K29.50 Unspecified chronic gastritis without bleeding; K21.00 Gastro-esophageal reflux disease with esophagitis, without bleeding; K44.9 Diaphragmatic hernia without obstruction or gangrene; K64.1 Second degree hemorrhoids; K57.30 Diverticulosis of large intestine without perforation or abscess without bleeding; I10 Essential (primary) hypertension; M19.90 Unspecified osteoarthritis, unspecified site; F32.9 Major depressive disorder, single episode, unspecified; F41.9 Anxiety disorder, unspecified; G30.9 Alzheimer's disease, unspecified; E87.1 Hypo-osmolality and hyponatremia; D50.9 Iron deficiency anemia, unspecified; E66.01 Morbid (severe) obesity due to excess calories; Z68.39 Body mass index [BMI] 39.0-39.9, adult; J30.9 Allergic rhinitis, unspecified; Z79.899 Other long term (current) drug therapy; Z88.1 Allergy status to other antibiotic agents; Z88.5 Allergy status to narcotic agent; Z88.2 Allergy status to sulfonamides; Z85.3 Personal history of malignant neoplasm of breast; Z80.0 Family history of malignant neoplasm of digestive organs; Z83.3 Family history of diabetes mellitus
CPT/HCPCS: 43239; G0105; 88305

== ENCOUNTER 2020-10-26 08:20 | Emergency (ER) | payer MEDICARE ==
[~2020-10-26] VITALS: Ht 157 cm; Wt 90.0 kg
--- NOTE | 2020-10-26 08:26 | ED General ---
General Stated Complaint: WEAKNESS History of Present Illness Date Seen by Provider: Oct 26, 2020 Time Seen by Provider: 08:26 Initial Comments 84-year-old female presents "to be checked out" patient is extremely anxious. She reports that she was buttering some toast this morning. That after she bent down to get the toaster and was trying to better her bread that she felt like her "hands had stuck together momentarily" patient reports that she felt a little funny. Patient presents now began extremely anxious but no other physical complaints. She does not complain of any numbness or tingling. No headaches, focal weakness, slurred speech or other neurologic symptoms. Patient's only symptom upon presentation is being extremely anxious and still "feeling a little funny., Allergies and Home Medications Allergies Coded Allergies: ciprofloxacin (Unverified Allergy, Unknown, 02/13/17) oxycodone (Unverified Allergy, Unknown, Pt has rec Lortab, Morphine, Dilaudid in the past, 09/30/20) sulfamethoxazole (Unverified Allergy, Unknown, 02/13/17) trimethoprim (Unverified Allergy, Unknown, 02/13/17) Home Medications Ascorbic Acid 500 Mg Capsule, 500 MG PO DAILY, (Reported) Aspirin 81 Mg Tab.chew, 81 MG PO DAILY, (Reported) Celecoxib 100 Mg Capsule, 100 MG PO BID, (Reported) Cranberry Fruit 450 Mg Tablet, 450 MG PO DAILY, (Reported) Divalproex Sodium 125 Mg Cap.sprink, 125 MG PO BID, (Reported) Docusate Sodium 100 Mg Capsule, 100 MG PO DAILY, (Reported) Esomeprazole Magnesium 20 Mg Capsule.dr, 20 MG PO DAILY, (Reported) Furosemide 20 Mg Tablet, 20 MG PO DAILY, (Reported) Potassium Chloride 20 Meq Tablet.er, 20 MEQ PO DAILY, (Reported) Patient Home Medication List Home Medication List Reviewed: Yes Review of Systems Review of Systems Constitutional: No chills, No fever EENTM: no symptoms reported Respiratory: no symptoms reported Cardiovascular: no symptoms reported Gastrointestinal: no symptoms reported Genitourinary: no symptoms reported Musculoskeletal: no symptoms reported Skin: no symptoms reported Psychiatric/Neurological: See HPI Past Zmailor-Dlonbf-Qnigqk Hx Past Med/Social Hx: Reviewed Nursing Past Med/Soc Hx Patient Social History 2nd Hand Smoke Exposure: No Recent Hopitalizations: Yes Seasonal Allergies Seasonal Allergies: No Past Medical History 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) Dementia Reproductive Disorders: No Female Reproductive Disorders: Denies Sexually Transmitted Disease: No HIV/AIDS: No Genitourinary: No UTI-Chronic Gastrointestinal: Yes (CHRONIC UPPER GASTROINTESTINAL HEMORRHAGE) Gastrointestinal Bleed, Chronic Constipation Musculoskeletal: Yes Back Injury, Chronic Back Pain, Fractures Endocrine: No HEENT: No Cancer: Yes Skin, Breast Did You Recieve Any Treatments: Yes What Type of Treatment Did You: Surgical Intervention Psychosocial: Yes Anxiety, Violent Behavior, Depression Integumentary: Yes (SKIN CA) 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 6.0oz. [id number]; 39.09 BMI Method:Stated General Appearance: Anxious Neck: Full Range of Motion, Normal Inspection Respiratory: Lungs Clear, Normal Breath Sounds Cardiovascular: Regular Rate, Rhythm, No Edema Gastrointestinal: Non Tender, Soft Extremity: Normal Capillary Refill, Normal Inspection, Normal Range of Motion Neurologic/Psychiatric: Alert, Oriented x3, No Motor/Sensory Deficits, combination man II- XII Norm as Tested Skin: Normal Color, Warm/Dry Progress/Results/Core Measures Suspected Sepsis SIRS Temperature: Pulse: Respiratory Rate: Laboratory Tests 10/26/20 08:38: White Blood Count 5.6 Blood Pressure / Mean: Laboratory Tests 10/26/20 08:38: Creatinine 1.02, INR Comment 1.0, Platelet Count 243, Total Bilirubin 0.3 Results/Orders Lab Results Laboratory Tests Test 10/26/20 08:38 Range/Units White Blood Count 5.6 4.3-11.0 10^3/uL Red Blood Count 4.82 4.35-5.85 10^6/uL Hemoglobin 13.9 11.5-16.0 G/DL Hematocrit 42 35-52 % Mean Corpuscular Volume 86 80-99 FL Mean Corpuscular Hemoglobin 29 25-34 PG Mean Corpuscular Hemoglobin Concent 34 32-36 G/DL Red Cell Distribution Width 14.7 H 10.0-14.5 % Platelet Count 243 130-400 10^3/uL Mean Platelet Volume 9.7 7.4-10.4 FL Immature Granulocyte % (Auto) 0 % Neutrophils (%) (Auto) 55 42-75 % Lymphocytes (%) (Auto) 30 12-44 % Monocytes (%) (Auto) 9 0-12 % Eosinophils (%) (Auto) 5 0-10 % Basophils (%) (Auto) 1 0-10 % Neutrophils # (Auto) 3.1 1.8-7.8 X 10^3 Lymphocytes # (Auto) 1.7 1.0-4.0 X 10^3 Monocytes # (Auto) 0.5 0.0-1.0 X 10^3 Eosinophils # (Auto) 0.3 0.0-0.3 10^3/uL Basophils # (Auto) 0.1 0.0-0.1 10^3/uL Immature Granulocyte # (Auto) 0.0 0.0-0.1 10^3/uL Prothrombin Time 13.4 12.2-14.7 SEC INR Comment 1.0 0.8-1.4 Activated Partial Thromboplast Time 27 24-35 SEC Sodium Level 138 135-145 MMOL/L Potassium Level 4.2 3.6-5.0 MMOL/L Chloride Level 102 98-107 MMOL/L Carbon Dioxide Level 23 21-32 MMOL/L Anion Gap 13 5-14 MMOL/L Blood Urea Nitrogen 23 H 7-18 MG/DL Creatinine 1.02 0.60-1.30 MG/DL Estimat Glomerular Filtration Rate 52 BUN/Creatinine Ratio 23 Glucose Level 117 H 70-105 MG/DL Calcium Level 9.3 8.5-10.1 MG/DL Corrected Calcium 9.4 8.5-10.1 MG/DL Total Bilirubin 0.3 0.1-1.0 MG/DL Aspartate Amino Transf (AST/SGOT) 25 5-34 U/L Alanine Aminotransferase (ALT/SGPT) 19 0-55 U/L Alkaline Phosphatase 79 40-136 U/L Total Protein 6.4 6.4-8.2 GM/DL Albumin 3.9 3.2-4.5 GM/DL My Orders Orders - GILBERTO LESTER DO Ct Head Wo (10/26/20 08:31) Ekg Tracing (10/26/20 08:31) Monitor-Rhythm Ecg Trace Only (10/26/20 08:31) Cbc With Automated Diff (10/26/20 08:31) Comprehensive Metabolic Panel (10/26/20 08:31) Ua Culture If Indicated (10/26/20 08:31) Protime With Inr (10/26/20 09:43) Partial Thromboplastin Time (10/26/20 09:43) Vital Signs/I&O 10/26/20 08:20 Temp 36.6 Pulse 73 Resp 20 B/P (MAP) 119/71 (87) Pulse Ox 97 O2 Delivery Room Air Capillary Refill : ECG Initial ECG Impression Date: Oct 26, 2020 Initial ECG Impression Time: 08:39 Initial ECG Rate: 69 Initial ECG Rhythm: Normal Sinus Initial ECG Intervals RBBB Comment Sinus Rhythm, HR 69, RBBB Departure Impression Primary Impression: Subarachnoid hemorrhage Disposition: 01 HOME, SELF-CARE Condition: Stable Transfer Transfer Reason: Exceeds level of care Time Spoke to Accepting Phy: 10:10 Transfer Progress Notes Discussed with [facility]. Patient accepted by Dr. Adhikari, will be transferred to the ICU for further evaluation. Patient transferred in stable condition Transfer Facility: [facility] Method of Transfer: EMS Departure-Patient Inst. Referrals: [facility] (PCP) Primary Care Physician ARCELIA PRICE APRN (Family) Primary Care Physician GILBERTO LESTER DO Oct 26, 2020 08:26
[2020-10-26 08:45] LABS: BASOPHILS % (AUTO) 1 % (0-10); EOSINOPHILS % (AUTO) 5 % (0-10); HEMATOCRIT 42 % (35-52); HEMOGLOBIN 13.9 G/DL (11.5-16.0); LYMPHOCYTES % (AUTO) 30 % (12-44); MEAN CORPUSCULAR HEMOGLOBIN 29 PG (25-34); MEAN CORPUSCULAR HGB CONC 34 G/DL (32-36); MEAN CORPUSCULAR VOLUME 86 FL (80-99); MEAN PLATELET VOLUME 9.7 FL (7.4-10.4); MONOCYTES % (AUTO) 9 % (0-12); NEUTROPHILS % (AUTO) 55 % (42-75); PLATELET COUNT 243 10^3/uL (130-400); WHITE BLOOD COUNT 5.6 10^3/uL (4.3-11.0)
[2020-10-26 08:46] LABS: BASOPHILS # (AUTO) 0.1 10^3/uL (0.0-0.1); EOSINOPHILS # (AUTO) 0.3 10^3/uL (0.0-0.3); LYMPHOCYTES # (AUTO) 1.7 X 10^3 (1.0-4.0); MONOCYTES # (AUTO) 0.5 X 10^3 (0.0-1.0); NEUTROPHILS # (AUTO) 3.1 X 10^3 (1.8-7.8)
[2020-10-26 09:02] LABS: BILIRUBIN,TOTAL 0.3 MG/DL (0.1-1.0); CALCIUM 9.3 MG/DL (8.5-10.1); CREATININE SERUM 1.02 MG/DL (0.60-1.30); POTASSIUM 4.2 MMOL/L (3.6-5.0); TOTAL PROTEIN 6.4 GM/DL (6.4-8.2)
[2020-10-26 09:03] LABS: ALBUMIN 3.9 GM/DL (3.2-4.5)
--- NOTE | 2020-10-26 09:42 | Diagnostic Imaging Report ---
PROCEDURE: CT head without contrast. TECHNIQUE: Multiple contiguous axial images were obtained through the brain without the use of intravenous contrast. Auto Exposure Controls were utilized during the CT exam to meet ALARA standards for radiation dose reduction. INDICATION: Numbness in hands. COMPARISON: CT head performed on 01/28/2017 and MRI brain performed on 11/28/2014. FINDINGS: BRAIN AND EXTRA-AXIAL SPACES: There is a small amount of subarachnoid hemorrhage in the left frontotemporal region superiorly. There is no significant mass effect or midline shift. No parenchymal hemorrhage is identified. Donahue-white matter differentiation is adequately preserved without findings to suggest acute territorial infarct. Periventricular and subcortical white matter hypodensities likely reflect chronic small vessel ischemic change. Prominence of the ventricles and sulci is compatible with cortical and cerebellar parenchymal volume loss, commensurate with age. There are no epidural or subdural collections. ORBITS AND PARANASAL SINUSES: The visualized orbits and globes are intact. The visualized paranasal sinuses and mastoid air cells are clear. CALVARIUM AND SOFT TISSUES: The calvarium is intact. No fractures or suspicious bony lesions. The extracranial soft tissues are unremarkable. IMPRESSION: Small amount of focal subarachnoid hemorrhage in the left frontotemporal region superiorly. This is of indeterminate etiology, possibly related to trauma. There is no evidence of significant mass effect or midline shift. There is no hydrocephalus. Close clinical surveillance is recommended with repeat imaging as clinically indicated. The above findings were discussed with Dr. Carballo on 10/26/2020 at 0935 hours. Dictated by: Dictated on workstation # [id number]
[2020-10-26 10:03] LABS: PROTHROMBIN TIME PATIENT 13.4 SEC (12.2-14.7)
[2020-10-26 10:28] VITALS: BP 137/73
[2020-10-26 10:56] LABS: COLOR,URINE YELLOW
[2020-10-26 10:57] LABS: BACTERIA,URINE TRACE /HPF; BILIRUBIN,URINE NEGATIVE (NEGATIVE); CLARITY,URINE CLEAR; GLUCOSE, URINE (UA) NEGATIVE (NEGATIVE); KETONES,URINE NEGATIVE (NEGATIVE); LEUKOCYTE ESTERASE ,URINE 1+ (NEGATIVE); NITRITE,URINE NEGATIVE (NEGATIVE); PH,URINE 6.5 (5-9); PROTEIN,URINE NEGATIVE (NEGATIVE); WBC,URINE 0-2 /HPF
== END 2020-10-26 11:01 | disposition short-term general hospital (02) ==
LOC: EDUNIT# 08:20 → ER FS 08:21
DX: I60.9 Nontraumatic subarachnoid hemorrhage, unspecified (principal); I10 Essential (primary) hypertension; K59.09 Other constipation; F03.90 Unspecified dementia, unspecified severity, without behavioral disturbance, psychotic disturbance, mood disturbance, and anxiety; F41.9 Anxiety disorder, unspecified; F32.9 Major depressive disorder, single episode, unspecified; Z85.828 Personal history of other malignant neoplasm of skin; Z85.3 Personal history of malignant neoplasm of breast; Z79.82 Long term (current) use of aspirin; Z88.1 Allergy status to other antibiotic agents; Z88.2 Allergy status to sulfonamides; Z88.5 Allergy status to narcotic agent
CPT/HCPCS: 36415; 70450; 80053; 81000; 85025; 85610; 85730; 93005; 93041; 99291

== ENCOUNTER 2021-08-26 06:38 | Emergency (ER) | payer MEDICARE ==
[~2021-08-26] VITALS: Ht 162 cm; Wt 90.9 kg
[~2021-08-26 06:38] MED LIST changes: -DOXY100C2 PO; +DOXY100C5 PO; -MAGN400T8 PO; +MGX400T PO; -POTA10TA36 PO; +POTA10TA37 PO
[2021-08-26 07:10] LABS: BASOPHILS % (AUTO) 1 % (0-10); EOSINOPHILS # (AUTO) 0.2 10^3/uL (0.0-0.3); EOSINOPHILS % (AUTO) 4 % (0-10); HEMATOCRIT 41 % (35-52); HEMOGLOBIN 13.8 g/dL (11.5-16.0); LYMPHOCYTES # (AUTO) 1.9 10^3/uL (1.0-4.0); LYMPHOCYTES % (AUTO) 32 % (12-44); MEAN CORPUSCULAR HEMOGLOBIN 29 pg (25-34); MEAN CORPUSCULAR HGB CONC 33 g/dL (32-36); MEAN CORPUSCULAR VOLUME 86 fL (80-99); MEAN PLATELET VOLUME 9.7 fL (9.0-12.2); MONOCYTES # (AUTO) 0.5 10^3/uL (0.0-1.0); MONOCYTES % (AUTO) 9 % (0-12); NEUTROPHILS # (AUTO) 3.2 10^3/uL (1.8-7.8); NEUTROPHILS % (AUTO) 55 % (42-75); PLATELET COUNT 217 10^3/uL (130-400); WHITE BLOOD COUNT 5.8 10^3/uL (4.3-11.0)
--- NOTE | 2021-08-26 07:13 | ED General ---
General Chief Complaint: Altered Mental Status Stated Complaint: CONFUSION Nursing Triage Note: pt arrives w/ c/o Vertigo per EMS report. Pt upon questioning by Dr. Baxter is altered. Pt lifted to stretcher and attached to transit manager. Source of Information: Patient, EMS, Old Records (BRENDA BAXTER MD) History of Present Illness Date Seen by Provider: Aug 26, 2021 Time Seen by Provider: 06:39 Initial Comments 85-year-old female presenting with complaints of not feeling right and feeling "off". She denied having vertigo as her reason to come to the emergency depar tment even though that is what EMS was bringing her in to be seen for according to their report. She does have history of a subarachnoid hemorrhage and October 2020. She states that she is just seen in the clinic yesterday and they had drawn a bunch of blood work trying to see why she was not feeling right. She denies having pain or burning with urination but also states that she has difficulty controlling her urine and frequently dribbles urine. She does take a water pill to make her urinate. She denied having nausea or vomiting. She has no abdominal pain. She states that she has had some mild cough. She has chronic issues with her left hand having pain and decreased sensation. She has no fever, chills, nausea, vomiting, abdominal pain, chest pain, headache, vision change. She states that this morning when she tried to get up to go the bathroom she had trouble with her back and was very vague as to what was the problem with her back. She states that she has chronic low back pain but then said that that was not the issue for her back this morning. She denies any recent fall or injury. Pt rambles and does not directly answers questions Associated Systoms: No Chest Pain; Cough; No Diaphoresis, No Fever/Chills, No Headaches, No Loss of Appetite; Malaise; No Nausea/Vomiting, No Rash, No Seizure, No Shortness of Air, No Syncope; Weakness (general) (BRENDA BAXTER MD) Allergies and Home Medications Allergies Coded Allergies: ciprofloxacin (Unverified Allergy, Unknown, 02/13/17) oxycodone (Unverified Allergy, Unknown, Pt has rec Lortab, Morphine, Dilaudid in the past, 09/30/20) sulfamethoxazole (Unverified Allergy, Unknown, 02/13/17) trimethoprim (Unverified Allergy, Unknown, 02/13/17) Patient Home Medication List Home Medication List Reviewed: Yes (BRENDA BAXTER MD) Ascorbic Acid (Vitamin C) 500 Mg Capsule, 500 MG PO DAILY, (Reported) Entered as Reported by: DOMINIQUE ABRAHAM on 11/29/17 151 Aspirin (Aspirin) 81 Mg Tab.chew, 81 MG PO DAILY, (Reported) Entered as Reported by: ANGELITO GORE on 09/25/20 104 Celecoxib (Celebrex) 100 Mg Capsule, 100 MG PO BID, (Reported) Entered as Reported by: ANGELITO GORE on 09/25/20 104 Cranberry Fruit (Cranberry) 450 Mg Tablet, 450 MG PO DAILY, (Reported) Entered as Reported by: ANGELITO GORE on 09/25/20 104 Divalproex Sodium (Divalproex Sodium) 125 Mg Cap.sprink, 125 MG PO BID, (Reported) Entered as Reported by: DOMINIQUE ABRAHAM on 11/29/17 151 Docusate Sodium (Colace) 100 Mg Capsule, 100 MG PO DAILY, (Reported) Entered as Reported by: DARLING PEREZ on 02/13/17 191 Esomeprazole Magnesium (Nexium) 20 Mg Capsule.dr, 20 MG PO DAILY, (Reported) Entered as Reported by: ANGELITO GORE on 09/25/20 104 Furosemide (Furosemide) 20 Mg Tablet, 20 MG PO DAILY, (Reported) Entered as Reported by: ANGELITO GORE on 09/25/20 104 Potassium Chloride (Potassium Chloride) 20 Meq Tablet.er, 20 MEQ PO DAILY, (Reported) Entered as Reported by: DOMINIQUE ABRAHAM on 11/29/17 151 Review of Systems Review of Systems Constitutional: see HPI EENTM: No ear discharge, No ear pain, No blurred vision, No eye pain, No epistaxis, No nose congestion Respiratory: cough; No stridor, No wheezing Cardiovascular: No chest pain Gastrointestinal: No nausea, No vomiting Genitourinary: No dysuria; frequency, incontinence (dribbles urine constantly) Musculoskeletal: see HPI Skin: No rash Psychiatric/Neurological: Denies Headache; Paresthesia (left hand chronic) (BRENDA BAXTER MD) Past Wsevcnt-Ujmadh-Ahauba Hx Patient Social History Tobacco Use?: No Use of E-Cig and/or Vaping dev: No Substance use?: No Alcohol Use?: No (BRENDA BAXTER MD) Immunizations Up To Date Influenza Vaccine Up-to-Date: Yes; Up-to-Date First/Initial COVID19 Vaccinat: 08/06 Second COVID19 Vaccination Taz: 09/06 (BRENDA BAXTER MD) Seasonal Allergies Seasonal Allergies: No (BRENDA BAXTER MD) Past Medical History Surgery/Hospitalization HX: Subarachnoid hemorrhage 10/2020. 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) Dementia Reproductive Disorders: No Female Reproductive Disorders: Denies Sexually Transmitted Disease: No HIV/AIDS: No Genitourinary: No UTI-Chronic Gastrointestinal: Yes (CHRONIC UPPER GASTROINTESTINAL HEMORRHAGE) Gastrointestinal Bleed, Chronic Constipation Musculoskeletal: Yes Back Injury, Chronic Back Pain, Fractures Endocrine: No HEENT: No Cancer: Yes Skin, Breast Did You Recieve Any Treatments: Yes What Type of Treatment Did You: Surgical Intervention Psychosocial: Yes Anxiety, Violent Behavior, Depression Integumentary: Yes (SKIN CA) 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 6.0oz. [id number]; 34.00 BMI Method:Stated General Appearance: No Apparent Distress, Anxious, Chronically ill (appears older than stated age), Obese Eyes: Bilateral Eye PERRL, Bilateral Eye EOMI HEENT: Pharynx Normal Neck: Full Range of Motion, Normal Inspection, Non Tender, Supple Respiratory: Chest Non Tender, Lungs Clear, Normal Breath Sounds Cardiovascular: Regular Rate, Rhythm, Normal Peripheral Pulses Gastrointestinal: Normal Bowel Sounds, No Pulsatile Mass, Non Tender, Soft Rectal: Deferred Extremity: Normal Capillary Refill, Normal Inspection, No Calf Tenderness, Pedal Edema (1+ bilateral pedal edema) Neurologic/Psychiatric: Alert, Oriented x3, No Motor/Sensory Deficits (holding both legs up for count of 5 and both arms up for count of 10, 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, states she has tingling pain in left hand that is chronic), 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 Norm as Tested Skin: Normal Color, Warm/Dry (BRENDA BAXTER MD) Progress/Results/Core Measures Suspected Sepsis SIRS Temperature: Pulse: 73 Respiratory Rate: 20 Laboratory Tests 08/26/21 06:48: White Blood Count 5.8 Blood Pressure 154 /91 Mean: 112 Laboratory Tests 08/26/21 06:48: Creatinine 0.94, Platelet Count 217, Total Bilirubin 0.4 (BRENDA BAXTER MD) Results/Orders Lab Results Laboratory Tests Test 08/26/21 06:48 08/26/21 07:30 08/26/21 07:44 Range/Units White Blood Count 5.8 4.3-11.0 10^3/uL Red Blood Count 4.80 3.80-5.11 10^6/uL Hemoglobin 13.8 11.5-16.0 g/dL Hematocrit 41 35-52 % Mean Corpuscular Volume 86 80-99 fL Mean Corpuscular Hemoglobin 29 25-34 pg Mean Corpuscular Hemoglobin Concent 33 32-36 g/dL Red Cell Distribution Width 14.2 10.0-14.5 % Platelet Count 217 130-400 10^3/uL Mean Platelet Volume 9.7 9.0-12.2 fL Immature Granulocyte % (Auto) 0 % Neutrophils (%) (Auto) 55 42-75 % Lymphocytes (%) (Auto) 32 12-44 % Monocytes (%) (Auto) 9 0-12 % Eosinophils (%) (Auto) 4 0-10 % Basophils (%) (Auto) 1 0-10 % Neutrophils # (Auto) 3.2 1.8-7.8 10^3/uL Lymphocytes # (Auto) 1.9 1.0-4.0 10^3/uL Monocytes # (Auto) 0.5 0.0-1.0 10^3/uL Eosinophils # (Auto) 0.2 0.0-0.3 10^3/uL Basophils # (Auto) 0.0 0.0-0.1 10^3/uL Immature Granulocyte # (Auto) 0.0 0.0-0.1 10^3/uL Sodium Level 140 135-145 MMOL/L Potassium Level 3.8 3.6-5.0 MMOL/L Chloride Level 106 98-107 MMOL/L Carbon Dioxide Level 23 21-32 MMOL/L Anion Gap 11 5-14 MMOL/L Blood Urea Nitrogen 22 H 7-18 MG/DL Creatinine 0.94 0.60-1.30 MG/DL Estimat Glomerular Filtration Rate 60 BUN/Creatinine Ratio 23 Glucose Level 91 70-105 MG/DL Calcium Level 9.0 8.5-10.1 MG/DL Corrected Calcium 9.2 8.5-10.1 MG/DL Total Bilirubin 0.4 0.1-1.0 MG/DL Aspartate Amino Transf (AST/SGOT) 15 5-34 U/L Alanine Aminotransferase (ALT/SGPT) 11 0-55 U/L Alkaline Phosphatase 71 40-136 U/L Troponin I < 0.30 <0.30 NG/ML Pro-B-Type Natriuretic Peptide 335.0 H <75.0 PG/ML Total Protein 6.3 L 6.4-8.2 GM/DL Albumin 3.8 3.2-4.5 GM/DL Salicylates Level < 0.3 L 5.0-20.0 MG/DL Acetaminophen Level < 10 L 10-30 UG/ML Serum Alcohol < 10 <10 MG/DL Influenza Type A Antigen NEGATIVE NEGATIVE Influenza Type B Antigen NEGATIVE NEGATIVE Urine Color YELLOW Urine Clarity SL CLOUDY Urine pH 6.0 5-9 Urine Specific Jamieson 1.020 1.016-1.022 Urine Protein NEGATIVE NEGATIVE Urine Glucose (UA) NEGATIVE NEGATIVE Urine Ketones NEGATIVE NEGATIVE Urine Nitrite NEGATIVE NEGATIVE Urine Bilirubin NEGATIVE NEGATIVE Urine Urobilinogen 0.2 < = 1.0 MG/DL Urine Leukocyte Esterase NEGATIVE NEGATIVE Urine RBC (Auto) NEGATIVE NEGATIVE Urine RBC RARE /HPF Urine WBC 0-2 /HPF Urine Squamous Epithelial Cells 5-10 /HPF Urine Renal Epithelial Cells RARE /HPF Urine Crystals NONE /LPF Urine Bacteria FEW H /HPF Urine Casts NONE /LPF Urine Mucus SMALL H /LPF Urine Culture Indicated NO Urine Opiates Screen NEGATIVE NEGATIVE Urine Oxycodone Screen NEGATIVE NEGATIVE Urine Methadone Screen NEGATIVE NEGATIVE Urine Propoxyphene Screen NEGATIVE NEGATIVE Urine Barbiturates Screen NEGATIVE NEGATIVE Ur Tricyclic Antidepressants Screen NEGATIVE NEGATIVE Urine Phencyclidine Screen NEGATIVE NEGATIVE Urine Amphetamines Screen NEGATIVE NEGATIVE Urine Methamphetamines Screen NEGATIVE NEGATIVE Urine Benzodiazepines Screen NEGATIVE NEGATIVE Urine Cocaine Screen NEGATIVE NEGATIVE Urine Cannabinoids Screen NEGATIVE NEGATIVE (CANDICE LUNSFORD MD) Vital Signs/I&O 08/26/21 06:52 Temp 36.6 Pulse 73 Resp 20 B/P (MAP) 154/91 (112) Pulse Ox 98 O2 Delivery Room Air (CANDICE LUNSFORD MD) Vital Signs/I&O Capillary Refill : Less Than 3 Seconds (BRENDA BAXTER MD) Blood Pressure Mean: 112 Progress Note : Progress Note With her vague and rambling complaints will order general tests to include CT scan of head to look for possible stroke vs recurrent hemorrhage vs mass. CT lumbar spine and pelvis since she complained of pain in those areas and difficulty trying to stand and walk this morning. Will evaluate to see if there is an acute fracture or signs of worsening spinal stenosis or degenerative joint disease. Obtain urinalysis to look for signs of infection. Ordered labs to do medical as well as psychiatric screening to see if she had electrolyte imbalance or any drugs in her system that might be contributing to her vague complaints of not feeling right. Ordered electrocardiogram as well as cardiac enzymes to look for possible cardiac source of her complaint and symptoms. Care passed to Dr. Lunsford at shift change (BRENDA BAXTER MD) Progress Note : Progress Note Received the patient in signout pending imaging and lab work-up. CT head, lumbar spine, pelvis without acute findings. Basic labs including cardiac markers and urinalysis without evidence of infection or other abnormality. I reassessed the patient and did a repeat neuro exam. Repeat NIH scale is still 0 and I have no concerns for stroke at this time. Is always possible she had a mini TIA earlier but would be impossible to fully exclude. She does seem to be back to her baseline however. I believe she is stable for discharge with outpatient follow-up. She was sent home with strict return precautions peer (CANDICE LUNSFORD MD) ECG Initial ECG Impression Date: Aug 26, 2021 Initial ECG Impression Time: 07:31 Initial ECG Rate: 65 Initial ECG Rhythm: Normal Sinus Initial ECG Intervals: Normal Comment Wide QRS with a right bundle branch block, no significant ST changes, appears similar to prior EKG (CANDICE LUNSFORD MD) Diagnostic Imaging Diagonstic Imaging: CT Plain Films/CT/US/NM/MRI: head Diagonstic Imaging: CT Plain Films/CT/US/NM/MRI: pelvis (and lumbar spine) Diagonstic Imaging: Xray Plain Films/CT/US/NM/MRI: chest (BRENDA BAXTER MD) Comments [facility] [place], [place] NAME: RAMILA CHISHOLM [facility] REC#: [id number] PT STATUS: REG ER : 1935 PHYSICIAN: BRENDA BAXTER MD ADMIT DATE: 08/26/21/ER FS Draft Date of Exam:08/26/21 CT HEAD WO PROCEDURE: CT head without contrast. TECHNIQUE: Multiple contiguous axial images were obtained through the brain without the use of intravenous contrast. Auto Exposure Controls were utilized during the CT exam to meet ALARA standards for radiation dose reduction. INDICATION: Weakness and confusion Comparison is made to study of 10/26/2020 Ventricles and sulci are prominent consistent with patient's age. Hemorrhage seen on the previous study has resolved. There is no evidence of acute hemorrhage. There is no abnormal mass effect or shift of midline structures. Calvarium is intact and the visualized paranasal sinuses are clear. IMPRESSION: No acute intracranial abnormality. Dictated on workstation # [id number] Dict: 08/26/21 0735 Trans: 08/26/21 0739 [facility] [id number] Interpreted by: FERNY CHONG MD Electronically signed by: Comments [facility] [place], [place] NAME: RAMILA CHISHOLM [facility] REC#: [id number] PT STATUS: REG ER : 1935 PHYSICIAN: BRENDA BAXTER MD ADMIT DATE: 08/26/21/ER FS Signed Date of Exam:08/26/21 CT PELVIS WO PROCEDURE: CT pelvis without contrast. TECHNIQUE: Multiple contiguous axial images were obtained through the pelvis without the use of intravenous contrast. Sagittal and coronal reformations were performed. Auto Exposure Controls were utilized during the CT exam to meet ALARA standards for radiation dose reduction. INDICATION: Back and pelvic pain COMPARISON: 04/03/2017 There is no evidence of an acute fracture in the pelvis. Lower lumbar spondylosis is noted. There is herniation of fat into the inguinal canals bilaterally. No bowel hernia is identified. Unopacified bladder is unremarkable without evidence of perivesicular fluid collection. There is moderate stool at the level of rectum. IMPRESSION: Stable chronic findings in the pelvis without CT evidence of acute abnormality. Dictated by: Dictated on workstation # [id number] Dict: 08/26/2142 Trans: 08/26/21799 [facility] [id number] Interpreted by: FERNY CHONG MD Electronically signed by: FERNY CHONG MD 08/26/21799 [facility] [place], [place] NAME: KATHRINERAMILA Marita [facility] REC#: [id number] PT STATUS: REG ER : 1935 PHYSICIAN: BRENDA BAXTER MD ADMIT DATE: 08/26/21/ER FS Signed Date of Exam:08/26/21 CT LUMBAR SPINE WO PROCEDURE: CT lumbar spine without contrast. TECHNIQUE: Multiple contiguous axial images were obtained through the lumbar spine without the use of intravenous contrast. Sagittal and coronal reformations were then performed. Auto Exposure Controls were utilized during the CT exam to meet ALARA standards for radiation dose reduction. INDICATION: Back pain There are old compression fractures of T12 and L1 that has resulted in an acquired fusion of those 2 vertebral bodies with combined anterior wedging. There is a scoliotic curvature of the lumbar spine convex the right. There is advanced spondylosis with vacuum disc phenomena at each disc space and the lumbar spine. There are no acute compression fractures. Patient's had previous laminectomies at T12-L2. IMPRESSION: Severe diffuse spondylosis of the lumbar spine. Postoperative changes from laminectomies at T12-L2 and an acquired fusion of T12-L1. There are no acute abnormality seen in the lumbar spine. Dictated by: Dictated on workstation # [id number] Dict: 08/26/2144 Trans: 08/26/21747 [facility] [id number] Interpreted by: CAR FALCON MD Electronically signed by: CAR FALCON MD 08/26/21747 Comments [facility] [place] NAME: RAMILA CHISHOLM [facility] REC#: [id number] PT STATUS: REG ER : 1935 PHYSICIAN: BRENDA BAXTER MD ADMIT DATE: 08/26/21/ER FS Draft Date of Exam:08/26/21 CHEST 1 VIEW AP/PA ONLY INDICATION: Cough, weakness and confusion Portable AP view of chest is obtained. There is no previous study for comparison. Overall heart size and pulmonary vascularity are within normal limits. There is mild bilateral air trapping. Note is made of moderate hiatal hernia. Surgical clips are seen in the left axilla. No infiltrate or pleural fluid is seen. IMPRESSION: Mild emphysema with moderate hiatal hernia. Dictated on workstation # [id number] Dict: 08/26/21737 Trans: 08/26/2140 [facility] [phone] Interpreted by: FERNY CHONG MD Electronically signed by: (CANDICE LUNSFORD MD) Departure Impression Primary Impression: Weakness Disposition: 01 HOME, SELF-CARE Condition: Stable Departure-Patient Inst. Decision time for Depature: 08:55 (CANDICE LUNSFORD MD) Referrals: [facility] [place]) Primary Care Physician ARCELIA PRICE APRN (Family) Primary Care Physician Patient Instructions: Weakness ED Add. Discharge Instructions: Your labs and imaging look good today including a normal CT head. I do want you to follow-up with your regular doctor in the next couple days if you are not feeling better. If you did in fact have a mini stroke when you went to [facility], it would probably be beneficial to take a baby aspirin daily. BRENDA BAXTER MD Aug 26, 2021 07:13 CANDICE LUNSFORD MD Aug 26, 2021 07:46
[2021-08-26 07:29] LABS: ALANINE AMINOTRANSFERASE 11 U/L (0-55); ALBUMIN 3.8 GM/DL (3.2-4.5); ALKALINE PHOSPHATASE 71 U/L (40-136); BILIRUBIN,TOTAL 0.4 MG/DL (0.1-1.0); BUN/CREATININE RATIO 23; CARBON DIOXIDE 23 MMOL/L (21-32); CHLORIDE 106 MMOL/L (98-107); CREATININE SERUM 0.94 MG/DL (0.60-1.30); GFR ESTIMATED 60; GLUCOSE 91 MG/DL (70-105); POTASSIUM 3.8 MMOL/L (3.6-5.0); SODIUM 140 MMOL/L (135-145); TOTAL PROTEIN 6.3 GM/DL (6.4-8.2)
[2021-08-26 07:30] LABS: ACETAMINOPHEN < 10 UG/ML (10-30); SALICYLATE < 0.3 MG/DL (5.0-20.0)
--- NOTE | 2021-08-26 07:39 | Diagnostic Imaging Report ---
PROCEDURE: CT head without contrast. TECHNIQUE: Multiple contiguous axial images were obtained through the brain without the use of intravenous contrast. Auto Exposure Controls were utilized during the CT exam to meet ALARA standards for radiation dose reduction. INDICATION: Weakness and confusion Comparison is made to study of 10/26/2020 Ventricles and sulci are prominent consistent with patient's age. Hemorrhage seen on the previous study has resolved. There is no evidence of acute hemorrhage. There is no abnormal mass effect or shift of midline structures. Calvarium is intact and the visualized paranasal sinuses are clear. IMPRESSION: No acute intracranial abnormality. Dictated by: Dictated on workstation # [id number]
--- NOTE | 2021-08-26 07:41 | Diagnostic Imaging Report ---
INDICATION: Cough, weakness and confusion Portable AP view of chest is obtained. There is no previous study for comparison. Overall heart size and pulmonary vascularity are within normal limits. There is mild bilateral air trapping. Note is made of moderate hiatal hernia. Surgical clips are seen in the left axilla. No infiltrate or pleural fluid is seen. IMPRESSION: Mild emphysema with moderate hiatal hernia. Dictated by: Dictated on workstation # [id number]
--- NOTE | 2021-08-26 07:50 | Diagnostic Imaging Report ---
PROCEDURE: CT lumbar spine without contrast. TECHNIQUE: Multiple contiguous axial images were obtained through the lumbar spine without the use of intravenous contrast. Sagittal and coronal reformations were then performed. Auto Exposure Controls were utilized during the CT exam to meet ALARA standards for radiation dose reduction. INDICATION: Back pain There are old compression fractures of T12 and L1 that has resulted in an acquired fusion of those 2 vertebral bodies with combined anterior wedging. There is a scoliotic curvature of the lumbar spine convex the right. There is advanced spondylosis with vacuum disc phenomena at each disc space and the lumbar spine. There are no acute compression fractures. Patient's had previous laminectomies at T12-L2. IMPRESSION: Severe diffuse spondylosis of the lumbar spine. Postoperative changes from laminectomies at T12-L2 and an acquired fusion of T12-L1. There are no acute abnormality seen in the lumbar spine. Dictated by: Dictated on workstation # [id number]
--- NOTE | 2021-08-26 07:51 | Diagnostic Imaging Report ---
PROCEDURE: CT pelvis without contrast. TECHNIQUE: Multiple contiguous axial images were obtained through the pelvis without the use of intravenous contrast. Sagittal and coronal reformations were performed. Auto Exposure Controls were utilized during the CT exam to meet ALARA standards for radiation dose reduction. INDICATION: Back and pelvic pain COMPARISON: 04/03/2017 There is no evidence of an acute fracture in the pelvis. Lower lumbar spondylosis is noted. There is herniation of fat into the inguinal canals bilaterally. No bowel hernia is identified. Unopacified bladder is unremarkable without evidence of perivesicular fluid collection. There is moderate stool at the level of rectum. IMPRESSION: Stable chronic findings in the pelvis without CT evidence of acute abnormality. Dictated by: Dictated on workstation # [id number]
[2021-08-26 07:53] LABS: BILIRUBIN,URINE NEGATIVE (NEGATIVE); CLARITY,URINE SL CLOUDY; COLOR,URINE YELLOW; GLUCOSE, URINE (UA) NEGATIVE (NEGATIVE); KETONES,URINE NEGATIVE (NEGATIVE); LEUKOCYTE ESTERASE ,URINE NEGATIVE (NEGATIVE); NITRITE,URINE NEGATIVE (NEGATIVE); PROTEIN,URINE NEGATIVE (NEGATIVE)
[2021-08-26 08:10] LABS: BACTERIA,URINE FEW /HPF; RBC,URINE RARE /HPF; RENAL EPITHELIAL CELLS,URINE RARE /HPF; WBC,URINE 0-2 /HPF
[2021-08-26 08:12] LABS: AMPHETAMINE SCREEN, URINE NEGATIVE (NEGATIVE); BARBITURATE SCREEN URINE NEGATIVE (NEGATIVE); BENZODIAZEPINES SCREEN URINE NEGATIVE (NEGATIVE); CANNABINOID SCREEN, URINE NEGATIVE (NEGATIVE); COCAINE SCREEN URINE NEGATIVE (NEGATIVE); METHADONE STAT NEGATIVE (NEGATIVE); METHAMPHETAMINE SCREEN URINE S NEGATIVE (NEGATIVE); OPIATE SCREEN URINE NEGATIVE (NEGATIVE); OXYCODONE STAT NEGATIVE (NEGATIVE); PROPOXYPHENE STAT NEGATIVE (NEGATIVE); TRICYCLIC ANTIDEPRESSANTS SCRE NEGATIVE (NEGATIVE)
[2021-08-26 09:21] VITALS: BP 143/87
== END 2021-08-26 09:11 | disposition home or self-care (01) ==
LOC: EDUNIT# 06:38 → ER FS 06:41
DX: R53.1 Weakness (principal); I10 Essential (primary) hypertension; F03.90 Unspecified dementia, unspecified severity, without behavioral disturbance, psychotic disturbance, mood disturbance, and anxiety; Z86.73 Personal history of transient ischemic attack (TIA), and cerebral infarction without residual deficits; Z79.82 Long term (current) use of aspirin; Z79.899 Other long term (current) drug therapy
CPT/HCPCS: 36415; 70450; 71045; 72131; 72192; 80053; 80306; 80320; 80329; 81000; 83880; 84484; 85025; 87635; 87804; 93005; 93041

== ENCOUNTER 2022-11-13 17:32 | Observation (INO) | payer MEDICARE ==
[2022-11-13] VITALS (9 sets, daily range): BP systolic 130–178; BP diastolic 61–86
[~2022-11-13] VITALS: Ht 152.4 cm; Wt 94.7 kg
[~2022-11-13 17:32] MED LIST changes: +FLUC100T10 PO; -FLUC100T6 PO; +OMEP20TA56 PO; -OMEP20TA7 PO; +POTA-177 PO; -POTA10TA37 PO
[2022-11-13] MEDS ORDERED: NS IV 500 ML 500 ML IV STA (17:49)
--- NOTE | 2022-11-13 17:51 | ED Neurological Problem ---
General Chief Complaint: Neuro-Stroke Like Symptoms Stated Complaint: SLURRED SPEECH/CONFUSION Source: patient, family, RN/MD Exam Limitations: no limitations History of Present Illness Date Seen by Provider: Nov 13, 2022 Time Seen by Provider: 17:32 Initial Comments 86-year-old female with PMH most notable for HTN and prior SAH coming in due to aphasia as a referral from the urgent care. She was in the kitchen making macaroni for lunch, and was trying to talk to her dog, and could not get the words out. This was just before 1 PM. She called her son close to 4 PM and he was able to take her to the urgent care before she was referred here. He did have a drive to the urgent care so it was more than 4.5 hours prior to arrival to the ED. she states the symptoms only lasted a couple of minutes. She did not have any weakness or numbness associated with it. Denied any headache, vision changes, or any other concerns. She denies any prior history of ischemic stroke that she knows of, just had the subarachnoid hemorrhage in October 2020 for which she was transferred to [facility]. It was a small subarachnoid that was likely a hypertensive emergency as the cause as there was no trauma or aneurysm that was identified. The patient is very anxious today and under a lot of stress. Multiple family members have on this day as an anniversary. Additionally, her brother this morning. She is appropriately tearful talking about this. Allergies and Home Medications Allergies Coded Allergies: ciprofloxacin (Unverified Allergy, Unknown, 02/13/17) oxycodone (Unverified Allergy, Unknown, Pt has rec Lortab, Morphine, Dilaudid in the past, 09/30/20) sulfamethoxazole (Unverified Allergy, Unknown, 02/13/17) trimethoprim (Unverified Allergy, Unknown, 02/13/17) Patient Home Medication List Home Medication List Reviewed: Yes Ascorbic Acid (Vitamin C) 500 Mg Capsule, 500 MG PO DAILY, (Reported) Entered as Reported by: DOMINIQUE ABRAHAM on 11/29/17 1517 Aspirin (Aspirin) 81 Mg Tab.chew, 81 MG PO DAILY, (Reported) Entered as Reported by: ANGELITO GORE on 09/25/20 1045 Celecoxib (Celebrex) 100 Mg Capsule, 100 MG PO BID, (Reported) Entered as Reported by: ANGELITO GORE on 09/25/20 1045 Cranberry Fruit (Cranberry) 450 Mg Tablet, 450 MG PO DAILY, (Reported) Entered as Reported by: ANGELITO GORE on 09/25/20 1045 Divalproex Sodium (Divalproex Sodium) 125 Mg Cap.sprink, 125 MG PO BID, (Reported) Entered as Reported by: DOMINIQUE ABRAHAM on 11/29/17 151 Docusate Sodium (Colace) 100 Mg Capsule, 100 MG PO DAILY, (Reported) Entered as Reported by: DARLING PEREZ on 02/13/17 191 Esomeprazole Magnesium (Nexium) 20 Mg Capsule.dr, 20 MG PO DAILY, (Reported) Entered as Reported by: ANGELITO GORE on 09/25/20 104 Furosemide (Furosemide) 20 Mg Tablet, 20 MG PO DAILY, (Reported) Entered as Reported by: ANGELITO GORE on 09/25/20 104 Potassium Chloride (Potassium Chloride) 20 Meq Tablet.er, 20 MEQ PO DAILY, (Reported) Entered as Reported by: DOMINIQUE ABRAHAM on 11/29/17 151 Review of Systems Review of Systems Constitutional: No fever Eyes: No Symptoms Reported Ears, Nose, Mouth, Throat: no symptoms reported Respiratory: no symptoms reported Cardiovascular: no symptoms reported Gastrointestinal: no symptoms reported Genitourinary: No dysuria; frequency Musculoskeletal: no symptoms reported Skin: no symptoms reported Psychiatric/Neurological: See HPI Endocrine: No Symptoms Reported Hematologic/Lymphatic: No Symptoms Reported Past Dggtske-Yyzvfz-Ojteuk Hx Patient Social History Tobacco Use?: No Immunizations Up To Date First/Initial COVID19 Vaccinat: 08/06 Second COVID19 Vaccination Taz: 09/06 Seasonal Allergies Seasonal Allergies: No Past Medical History Surgery/Hospitalization HX: Subarachnoid hemorrhage 10/2020- transferred to with MRI showing SAH left central sulcus with no mass or ischemic stroke seen 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) Dementia Reproductive Disorders: No Female Reproductive Disorders: Denies Sexually Transmitted Disease: No HIV/AIDS: No Genitourinary: No UTI-Chronic Gastrointestinal: Yes (CHRONIC UPPER GASTROINTESTINAL HEMORRHAGE) Gastrointestinal Bleed, Chronic Constipation Musculoskeletal: Yes Back Injury, Chronic Back Pain, Fractures Endocrine: No HEENT: No Cancer: Yes Skin, Breast Did You Recieve Any Treatments: Yes What Type of Treatment Did You: Surgical Intervention Psychosocial: Yes Anxiety, Violent Behavior, Depression Integumentary: Yes (SKIN CA) 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 6.0oz. 74.984817yp; 34.00 BMI Method:Stated General Appearance: WD/WN, no apparent distress HEENT: PERRL/EOMI, normal ENT inspection, pharynx normal Neck: non-tender, full range of motion, supple, normal inspection Respiratory: chest non-tender, lungs clear, normal breath sounds, no respiratory distress, no accessory muscle use Cardiovascular: regular rate, rhythm, no edema, no murmur Gastrointestinal: normal bowel sounds, non tender, soft; No distended, No guarding, No rebound Back: normal inspection, no CVA tenderness, no vertebral tenderness Extremities: normal range of motion, non-tender, normal inspection, no pedal edema, no calf tenderness, normal capillary refill Neurologic/Psychiatric: glued wood tester II-XII nml as tested, no motor/sensory deficits, alert, normal mood/affect, oriented x 3, other (Normal visual fay and visual acuity) Crainal Nerves: normal hearing, PERRL, other (Mild dysarthria) Coordination/Gait: normal finger to nose, normal gait, other (Normal wcty-el-wwoc) Motor/Sensory: no motor deficit, no sensory deficit, no pronator drift Skin: normal color, warm/dry Stroke Onset of Symptoms Date of Onset of Symptoms: Nov 13, 2022 Time of Symptom Onset: 13:00 Onset of Symptoms: Yes NIH Stroke Scale Assessment Select: Initial Level of Consciousness: 0=Alert (0), Level of Consciousness- Questions: 0=Answers both month/age (0), LOC Commands: 0=Performs both tasks (0), Gaze: Normal (0), Visual Fay: 0=No visual loss (0), Facial Movement (Facial Paresis): 0=Normal symmetrical mnt (0), Motor Function-Arms Right: 0=No drift (0), Motor Function-Arms Left: 0=No drift (0), Motor Function-Legs Right: 0=No drift (0), Motor Function-Legs Left: 0=No drift (0), Limb Ataxia: 0=Absent (0), Sensory: 0=Normal:no loss (0), Best Language: 0=No aphasia (0), Dysarthria: 1=Mild to moderate loss (1), Extinction & Inattention: 0=No abnormality (0), Total: 1 Stroke Thrombolytic Exclusion Age 18 or Over: Yes Acute intenal hemorrhage: No History of CVA: No Uncontrolled Coagulation Defec: No Intracranial Hemorrhage: No Severe Hypertension: No GI or Bleed: No Subarachnoid Hemorrhage: Yes (history of SAH) Intracranial Neoplasm/Aneurysm: No Oral Anticoagulants: No Surgery or Trauma: No Puncture of Non-Compressible V: No Recent CPR: No Diabetic Hemorrhagic Retinopat: No Organ Biopsy: No Recent Obstetric Delivery: No Glucose: No Significant Hepatic Dysfunctio: No NIH Stoke Scale >22: No Bacterial Endocarditis: No Pericarditis: No Improving Symptoms: Yes Platelets: No TPA Contraindication: Yes IV - TPa Received IV - TPa Procedure Performed?: No Progress/Results/Core Measures Results/Orders Lab Results Laboratory Tests Test 11/13/22 17:37 11/13/22 18:10 Range/Units White Blood Count 7.6 4.3-11.0 10^3/uL Red Blood Count 4.93 3.80-5.11 10^6/uL Hemoglobin 14.1 11.5-16.0 g/dL Hematocrit 43 35-52 % Mean Corpuscular Volume 86 80-99 fL Mean Corpuscular Hemoglobin 29 25-34 pg Mean Corpuscular Hemoglobin Concent 33 32-36 g/dL Red Cell Distribution Width 14.5 10.0-14.5 % Platelet Count 252 130-400 10^3/uL Mean Platelet Volume 9.7 9.0-12.2 fL Immature Granulocyte % (Auto) 0 % Neutrophils (%) (Auto) 58 42-75 % Lymphocytes (%) (Auto) 31 12-44 % Monocytes (%) (Auto) 8 0-12 % Eosinophils (%) (Auto) 3 0-10 % Basophils (%) (Auto) 1 0-10 % Neutrophils # (Auto) 4.4 1.8-7.8 10^3/uL Lymphocytes # (Auto) 2.3 1.0-4.0 10^3/uL Monocytes # (Auto) 0.6 0.0-1.0 10^3/uL Eosinophils # (Auto) 0.2 0.0-0.3 10^3/uL Basophils # (Auto) 0.1 0.0-0.1 10^3/uL Immature Granulocyte # (Auto) 0.0 0.0-0.1 10^3/uL Prothrombin Time 13.2 12.2-14.7 SEC INR Comment 1.0 0.8-1.4 Activated Partial Thromboplast Time 28 24-35 SEC Sodium Level 140 135-145 MMOL/L Potassium Level 3.7 3.6-5.0 MMOL/L Chloride Level 106 98-107 MMOL/L Carbon Dioxide Level 23 21-32 MMOL/L Anion Gap 11 5-14 MMOL/L Blood Urea Nitrogen 14 7-18 MG/DL Creatinine 0.91 0.60-1.30 MG/DL Estimat Glomerular Filtration Rate 62 BUN/Creatinine Ratio 15 Glucose Level 98 70-105 MG/DL Calcium Level 9.3 8.5-10.1 MG/DL Corrected Calcium 9.1 8.5-10.1 MG/DL Total Bilirubin 0.3 0.1-1.0 MG/DL Aspartate Amino Transf (AST/SGOT) 17 5-34 U/L Alanine Aminotransferase (ALT/SGPT) 11 0-55 U/L Alkaline Phosphatase 88 40-136 U/L Troponin I < 0.30 <0.30 NG/ML Total Protein 7.4 6.4-8.2 GM/DL Albumin 4.3 3.2-4.5 GM/DL Urine Color YELLOW Urine Clarity CLEAR Urine pH 6.5 5-9 Urine Specific [place] <=1.005 1.016-1.022 Urine Protein NEGATIVE NEGATIVE Urine Glucose (UA) NEGATIVE NEGATIVE Urine Ketones NEGATIVE NEGATIVE Urine Nitrite NEGATIVE NEGATIVE Urine Bilirubin NEGATIVE NEGATIVE Urine Urobilinogen 0.2 < = 1.0 MG/DL Urine Leukocyte Esterase NEGATIVE NEGATIVE Urine RBC (Auto) NEGATIVE NEGATIVE Urine RBC 0-2 /HPF Urine WBC RARE /HPF Urine Squamous Epithelial Cells 5-10 /HPF Urine Crystals NONE /LPF Urine Bacteria NEGATIVE /HPF Urine Casts NONE /LPF Urine Mucus NEGATIVE /LPF Urine Culture Indicated NO My Orders Orders - CANDICE LUNSFORD MD Cbc With Automated Diff (11/13/22 17:49) Protime With Inr (11/13/22 17:49) Partial Thromboplastin Time (11/13/22 17:49) Comprehensive Metabolic Panel (11/13/22 17:49) Troponin I Fs (11/13/22 17:49) Ua Culture If Indicated (11/13/22 17:49) Chest 1 View Ap/Pa Only (11/13/22 17:49) Ekg Tracing (11/13/22 17:49) Accucheck Stat ONCE (11/13/22 17:49) Ed Iv/Invasive Line Start (11/13/22 17:49) Vital Signs Stroke Patient Q15M (11/13/22 17:49) O2 (11/13/22 17:49) Intake & Output 06,14,22 (11/13/22 17:49) Monitor-Rhythm Ecg Trace Only (11/13/22 17:49) Dysphagia Screening Tool Q10MX1 (11/13/22 17:49) Ct Angio Head/Neck (11/13/22 17:49) Ns Iv 500 Ml (Sodium Chloride 0.9%) (11/13/22 17:49) Iohexol Injection (Omnipaque 350 Mg/Ml 1 (11/13/22 18:00) Received Contrast (Hold Metformin- Contr (11/13/22 18:00) Ns (Ivpb) (Sodium Chloride 0.9% Ivpb Bag (11/13/22 18:00) Ed Admission (Communication) (11/13/22 18:53) Medications Given in ED Current Medications Medications Dose Ordered Sig/Adelina Route Start Time Stop Time Status Last Admin Dose Admin Iohexol 75 ml ONCE ONCE IV 11/13/22 18:00 11/13/22 18:01 DC 11/13/22 18:18 75 ML Sodium Chloride 100 ml ONCE ONCE IV 11/13/22 18:00 11/13/22 18:01 DC 11/13/22 18:18 80 ML Vital Signs/I&O 11/13/22 17:35 Temp 37.0 Pulse 80 Resp 18 B/P (MAP) 178/80 (112) Pulse Ox 97 O2 Delivery Room Air Progress Progress Note : Progress Note 86yoF with above history coming in due to an episode of aphasia earlier in the day. Differential includes ischemic stroke, subarachnoid hemorrhage, atypical migraine, stress reaction, or some other etiology. ABCs were intact and vitals are stable on presentation. NIH here was 1 for the mild dysarthria. She does not qualify for tPA due to her previous subarachnoid hemorrhage as well as she is out of the 4 and [address]/CTA of the head and neck was obtained and on my interpretation no obvious intracranial hemorrhage and was negative for any acute findings per the radiology report. I contacted the stroke n eurologist, Dr. Keyes, who recommended admission for MRI of the brain as well as an echo. He also recommended loading with Plavix 300 followed by 75 mg for 21 days. Also recommended daily aspirin and a high intensity statin. He recommended a heart monitor as an outpatient to check for A-fib as well. Basic labs obtained with IV placement and her glucose is 98, creatinine normal, troponin negative, normal hemoglobin, urinalysis without evidence of infection. EKG ordered and interpreted by me showing no acute ischemic changes and she is in sinus rhythm. Chest x-ray ordered and interpreted by me showing no acute abnormalities. I contacted Dr. Messer who will admit the patient to the cardiac stepdown unit for further evaluation and management. Initial ECG Impression Date: Nov 13, 2022 Initial ECG Impression Time: 18:21 Initial ECG Rate: 62 Initial ECG Rhythm: Normal Sinus Comment Wide QRS with a right bundle branch block, no significant ST changes or T wave abnormalities, appears similar to prior EKG Diagnostic Imaging Diagonstic Imaging: Xray (chest), CT (CT head without, CTA head and neck) Comments NAME: RAMILA CHISHOLM MED REC#: [id number] PT STATUS: REG ER : 1935 PHYSICIAN: CANDICE LUNSFORD MD ADMIT DATE: 11/13/22/ER FS Signed Date of Exam:11/13/22 CT ANGIO HEAD/NECK PROCEDURE: CT angiography of the head and CT angiography of the neck with and without contrast. TECHNIQUE: Contiguous noncontrast images were obtained from the skull base through the vertex. After intravenous contrast administration, helical CT angiography of the neck was performed. Source data was reformatted into 3D MIP projections. Delayed post contrast acquisition was also obtained. Auto Exposure Controls were utilized during the CT exam to meet ALARA standards for radiation dose reduction. INDICATION: Dysarthria, slurred speech. COMPARISON: Brain MRI 03/17/2017. The carotid arteries are normal without stenosis. Vertebral arteries are normal without stenosis. Intracranial internal carotid arteries are normal. The middle cerebral arteries are normal. The posterior cerebral arteries are normal. The anterior cerebral arteries are normal. There is no large vessel occlusion. No aneurysm or vascular malformation is seen. Mild generalized cerebral volume loss. Mild nonspecific periventricular hypoattenuation. . No mass effect or midline shift. The ventricles are normal in size and configuration. Basilar cisterns are patent. There are no intra- or extra-axial fluid collections. There is no intracranial hemorrhage. The orbits are normal. Paranasal sinuses are normal. Mastoid air cells are clear. No soft tissue abnormality is seen. No osseus lesions or fractures are seen. No lymphadenopathy is seen in the neck. The muscles of the neck are normal. Fascial planes are preserved and the deep spaces of the neck are normal. Limited views of the superior thorax are unremarkable. No osseous lesions or fractures are seen. IMPRESSION: 1. Normal vasculature in the head and neck without large vessel occlusion. Dictated by: Dictated on workstation # [id number] Dict: 11/13/221827 Trans: 11/13/221833 [facility] [id number] Interpreted by: VANESSA GAR DO Electronically signed by: VANESSA GAR DO 11/13/221833 NAME: RAMILA CHISHOLM [facility] REC#: [id number] PT STATUS: REG ER : 1935 PHYSICIAN: CANDICE LUNSFORD MD ADMIT DATE: 11/13/22/ER FS Signed Date of Exam:11/13/22 CHEST 1 VIEW AP/PA ONLY CHEST 1 VIEW AP/PA ONLY INDICATION: Slurred speech. COMPARISON: Chest radiograph 08/26/2021 FINDINGS: Lungs: Normal lung volume. No focal consolidation. Stable pulmonary vasculature. Pleura: No pleural effusion or pneumothorax. Heart and Mediastinum: Cardiomegaly. Great vessels of the thorax are stable. Aortic atherosclerosis. Osseous Structures and Soft Tissues: No acute osseous abnormality. Normal soft tissues. IMPRESSION: No acute cardiopulmonary process. Dictated by: Dictated on workstation # [id number] Dict: 11/13/221850 Trans: 11/13/221854 [facility] [place] [id number] Interpreted by: VANESSA GAR DO Electronically signed by: VANESSA GAR DO 11/13/221854 Departure Impression Primary Impression: Dysarthria Additional Impression: History of subarachnoid hemorrhage Disposition: 30 STILL A PATIENT Condition: Stable Admissions Decision to Admit Reason: Admit from ER (General) Decision to Admit/Date: Nov 13, 2022 Time/Decision to Admit Time: 18:40 Transfer Method of Transfer: EMS Departure-Patient Inst. Referrals: [facility] (PCP/Family) Primary Care Physician CANDICE LUNSFORD MD Nov 13, 2022 17:51
[2022-11-13 17:54] LABS: BASOPHILS # (AUTO) 0.1 10^3/uL (0.0-0.1); BASOPHILS % (AUTO) 1 % (0-10); EOSINOPHILS # (AUTO) 0.2 10^3/uL (0.0-0.3); EOSINOPHILS % (AUTO) 3 % (0-10); HEMATOCRIT 43 % (35-52); HEMOGLOBIN 14.1 g/dL (11.5-16.0); LYMPHOCYTES # (AUTO) 2.3 10^3/uL (1.0-4.0); LYMPHOCYTES % (AUTO) 31 % (12-44); MEAN CORPUSCULAR HEMOGLOBIN 29 pg (25-34); MEAN CORPUSCULAR HGB CONC 33 g/dL (32-36); MEAN CORPUSCULAR VOLUME 86 fL (80-99); MEAN PLATELET VOLUME 9.7 fL (9.0-12.2); MONOCYTES # (AUTO) 0.6 10^3/uL (0.0-1.0); MONOCYTES % (AUTO) 8 % (0-12); NEUTROPHILS # (AUTO) 4.4 10^3/uL (1.8-7.8); NEUTROPHILS % (AUTO) 58 % (42-75); PLATELET COUNT 252 10^3/uL (130-400); PROTHROMBIN TIME PATIENT 13.2 SEC (12.2-14.7); WHITE BLOOD COUNT 7.6 10^3/uL (4.3-11.0)
[2022-11-13 18:00] LABS: ALANINE AMINOTRANSFERASE 11 U/L (0-55); ALBUMIN 4.3 GM/DL (3.2-4.5); ALKALINE PHOSPHATASE 88 U/L (40-136); BILIRUBIN,TOTAL 0.3 MG/DL (0.1-1.0); BUN/CREATININE RATIO 15; CALCIUM 9.3 MG/DL (8.5-10.1); CARBON DIOXIDE 23 MMOL/L (21-32); CHLORIDE 106 MMOL/L (98-107); CREATININE SERUM 0.91 MG/DL (0.60-1.30); GFR ESTIMATED 62; GLUCOSE 98 MG/DL (70-105); POTASSIUM 3.7 MMOL/L (3.6-5.0); SODIUM 140 MMOL/L (135-145); TOTAL PROTEIN 7.4 GM/DL (6.4-8.2)
[2022-11-13] MEDS ORDERED: HOLD METFORMIN - RECEIVED CONTRAST 20 ML VIAL IV SCH (18:00)
[2022-11-13] MEDS ORDERED: IOHEXOL 350 MG/ML 100 ML (OMNIPAQUE 350) VIAL IV ONE (18:00)
[2022-11-13] MEDS ORDERED: NS 100 ML (IVPB) BAG IV ONE (18:00)
[2022-11-13 18:29] LABS: BILIRUBIN,URINE NEGATIVE (NEGATIVE); CLARITY,URINE CLEAR; COLOR,URINE YELLOW; GLUCOSE, URINE (UA) NEGATIVE (NEGATIVE); KETONES,URINE NEGATIVE (NEGATIVE); LEUKOCYTE ESTERASE ,URINE NEGATIVE (NEGATIVE); NITRITE,URINE NEGATIVE (NEGATIVE); PH,URINE 6.5 (5-9); PROTEIN,URINE NEGATIVE (NEGATIVE)
[2022-11-13 18:30] LABS: BACTERIA,URINE NEGATIVE /HPF; WBC,URINE RARE /HPF
[2022-11-13 18:31] LABS: RBC,URINE 0-2 /HPF
--- NOTE | 2022-11-13 18:37 | Diagnostic Imaging Report ---
PROCEDURE: CT angiography of the head and CT angiography of the neck with and without contrast. TECHNIQUE: Contiguous noncontrast images were obtained from the skull base through the vertex. After intravenous contrast administration, helical CT angiography of the neck was performed. Source data was reformatted into 3D MIP projections. Delayed post contrast acquisition was also obtained. Auto Exposure Controls were utilized during the CT exam to meet ALARA standards for radiation dose reduction. INDICATION: Dysarthria, slurred speech. COMPARISON: Brain MRI 03/17/2017. The carotid arteries are normal without stenosis. Vertebral arteries are normal without stenosis. Intracranial internal carotid arteries are normal. The middle cerebral arteries are normal. The posterior cerebral arteries are normal. The anterior cerebral arteries are normal. There is no large vessel occlusion. No aneurysm or vascular malformation is seen. Mild generalized cerebral volume loss. Mild nonspecific periventricular hypoattenuation. . No mass effect or midline shift. The ventricles are normal in size and configuration. Basilar cisterns are patent. There are no intra- or extra-axial fluid collections. There is no intracranial hemorrhage. The orbits are normal. Paranasal sinuses are normal. Mastoid air cells are clear. No soft tissue abnormality is seen. No osseus lesions or fractures are seen. No lymphadenopathy is seen in the neck. The muscles of the neck are normal. Fascial planes are preserved and the deep spaces of the neck are normal. Limited views of the superior thorax are unremarkable. No osseous lesions or fractures are seen. IMPRESSION: 1. Normal vasculature in the head and neck without large vessel occlusion. Dictated by: Dictated on workstation # [id number]
--- NOTE | 2022-11-13 18:56 | Diagnostic Imaging Report ---
CHEST 1 VIEW AP/PA ONLY INDICATION: Slurred speech. COMPARISON: Chest radiograph 08/26/2021 FINDINGS: Lungs: Normal lung volume. No focal consolidation. Stable pulmonary vasculature. Pleura: No pleural effusion or pneumothorax. Heart and Mediastinum: Cardiomegaly. Great vessels of the thorax are stable. Aortic atherosclerosis. Osseous Structures and Soft Tissues: No acute osseous abnormality. Normal soft tissues. IMPRESSION: No acute cardiopulmonary process. Dictated by: Dictated on workstation # [id number]
[2022-11-13] MEDS ORDERED: hydrALAZINE (APESOLINE) 20 MG/ML VIAL IV PRN (20:45)
[2022-11-13] MEDS ORDERED: ONDANSETRON 4 MG/2 ML (SDV) Z0FRAN IV PRN (20:45)
[2022-11-13] MEDS ORDERED: ALPRAZolam 0.5 MG (XANAX) TAB PO PRN (20:45)
[2022-11-13] MEDS ORDERED: diphenhydrAMINE 25 MG TAB (BENADRYL) PO PRN (20:45)
[2022-11-13] MEDS ORDERED: ACETAMINOPHEN 325 MG TABLET PO PRN (20:45)
[2022-11-13] MEDS ORDERED: ONDANSETRON 4 MG (ZOFRAN) ORAL DISSOLVE TAB PO PRN (20:45)
[2022-11-13] MEDS ORDERED: polyethylene glycoL POWDER 17 GM (MIRALAX) PACK PO PRN (20:45)
[2022-11-13] MEDS ORDERED: diphenhydrAMINE 50 MG/ML INJ (BENADRYL) IVP PRN (20:45)
[2022-11-13] MEDS ORDERED: ANTACID SUSP 30 ML UDC (MYLANTA) PO PRN (20:45)
[2022-11-13] MEDS ORDERED: MELATONIN 3 MG TABLET PO PRN (20:45)
[2022-11-13] MEDS ORDERED: BISACODYL 10 MG SUPP (DULCOLAX) PR PRN (20:45)
[2022-11-13] MEDS ORDERED: HYDROmorphone 2 MG/ML VIAL (DILAUDID) IV PRN (20:45)
[2022-11-13] MEDS ORDERED: HYDROcodone/APAP 5 MG/325 MG (LORTAB) TAB PO PRN (20:45)
[2022-11-13] MEDS: DOCUSATE SODIUM 100 MG (COLACE) CAP PO SCH (21:00)
[2022-11-13] MEDS: ENOXAPARIN 40 MG/0.4 ML (LOVENOX) SYR SC SCH (21:56)
[2022-11-14] VITALS (7 sets, daily range): BP systolic 134–155; BP diastolic 65–90
[2022-11-14 04:30] LABS: BASOPHILS # (AUTO) 0.1 10^3/uL (0.0-0.1); BASOPHILS % (AUTO) 1 % (0-10); EOSINOPHILS # (AUTO) 0.2 10^3/uL (0.0-0.3); EOSINOPHILS % (AUTO) 4 % (0-10); HEMATOCRIT 37 % (35-52); HEMOGLOBIN 12.3 g/dL (11.5-16.0); LYMPHOCYTES # (AUTO) 1.8 10^3/uL (1.0-4.0); LYMPHOCYTES % (AUTO) 33 % (12-44); MEAN CORPUSCULAR HEMOGLOBIN 28 pg (25-34); MEAN CORPUSCULAR HGB CONC 33 g/dL (32-36); MEAN CORPUSCULAR VOLUME 86 fL (80-99); MEAN PLATELET VOLUME 9.9 fL (9.0-12.2); MONOCYTES # (AUTO) 0.5 10^3/uL (0.0-1.0); MONOCYTES % (AUTO) 10 % (0-12); NEUTROPHILS # (AUTO) 2.9 10^3/uL (1.8-7.8); NEUTROPHILS % (AUTO) 52 % (42-75); PLATELET COUNT 222 10^3/uL (130-400); WHITE BLOOD COUNT 5.6 10^3/uL (4.3-11.0)
[2022-11-14 04:50] LABS: ALBUMIN 3.6 GM/DL (3.2-4.5); BILIRUBIN,TOTAL 0.4 MG/DL (0.1-1.0); CALCIUM 8.3 MG/DL (8.5-10.1); CREATININE SERUM 0.78 MG/DL (0.60-1.30); POTASSIUM 3.4 MMOL/L (3.6-5.0); TOTAL PROTEIN 6.1 GM/DL (6.4-8.2)
[2022-11-14] MEDS ORDERED: ASPIRIN 325 MG (5 GR) TABLET PO SCH (09:00)
[2022-11-14] MEDS ORDERED: CLOPIDOGREL 75 MG (PLAVIX) TABLET PO SCH (09:00)
--- NOTE | 2022-11-14 09:09 | Consultation-Cardiology ---
HPI-Cardiology Cardiology Consultation: Date of Consultation 11/14/22 Time Seen by a Provider: 08:15 Date of Admission Attending Physician [place] Admitting Physician Admitting Physician: Caitie Messer DO Attending Physician: Caitie Messer DO Consulting Physician KALPANA SIMMONS MD, MA, FACP, FACC, [facility] [place], CCDS Physician requesting consult: Dr Messer HPI: Chief Complaint: Reason for consultation: None provided by the requesting physician; pt appears to have been admitted to Dr Messer on 11/13/22 with stroke; we were asked to see her today 86 yo woman who reports a difficulty with forming words lasting about 5 min on 11/13/22, none since. Denies cp or palp or syncope. Denies focal weakness. Did have focal weakness in a hand (she can't recall if it was the R or the L hand) in October 2020, lasted a day or two and resolved and has not recurred. Denies palp or syncope or cp or shortness of breath Review of Systems-Cardiology Review of Systems Constitutional: malaise; No weight loss, No weight gain Eyes: No vision change Ears/Nose/Throat: No ear discharge, No nasal drainage, No ulcerations Respiratory: As described under HPI Cardiovascular: As described under HPI Gastrointestinal: No diarrhea, No nausea, No vomiting Genitourinary: No dysuria, No hematuria, No urine frequency changes Musculoskeletal: back pain (chronic) Skin: No rash, No ulcerations Psychiatric/Neurological: As described under HPI Hematologic: No bleeding abnormalities KMR-Oqtpfy-Nojkqz Hx Patient Social History Smoking Status: Never a Smoker 2nd Hand Smoke Exposure: No Have you traveled recently?: No Alcohol Use?: No Pt feels they are or have been: No Past Medical History PMH As described under Assessment. Family Medical History Family Medical History: She does not reprot fam h/o early CAD or SCD Allergies and Home Medications Allergies Coded Allergies: ciprofloxacin (Unverified Allergy, Unknown, 02/13/17) oxycodone (Unverified Allergy, Unknown, Pt has rec Lortab, Morphine, Dilaudid in the past, 09/30/20) sulfamethoxazole (Unverified Allergy, Unknown, 02/13/17) trimethoprim (Unverified Allergy, Unknown, 02/13/17) Patient Home Medication List Home Medication List Reviewed: Yes Ascorbic Acid (Vitamin C) 500 Mg Capsule, 500 MG PO DAILY, (Reported) Entered as Reported by: DOMINIQUE ABRAHAM on 11/29/17 1517 Aspirin (Aspirin) 81 Mg Tab.chew, 81 MG PO DAILY, (Reported) Entered as Reported by: ANGELITO GORE on 09/25/20 104 Celecoxib (Celebrex) 100 Mg Capsule, 100 MG PO BID, (Reported) Entered as Reported by: ANGELITO GORE on 09/25/20 104 Cranberry Fruit (Cranberry) 450 Mg Tablet, 450 MG PO DAILY, (Reported) Entered as Reported by: ANGELITO GORE on 09/25/20 104 Divalproex Sodium (Divalproex Sodium) 125 Mg Cap.sprink, 125 MG PO BID, (Reported) Entered as Reported by: DOMINIQUE ABRAHAM on 11/29/17 151 Docusate Sodium (Colace) 100 Mg Capsule, 100 MG PO DAILY, (Reported) Entered as Reported by: DARLING PEREZ on 02/13/17 191 Esomeprazole Magnesium (Nexium) 20 Mg Capsule.dr, 20 MG PO DAILY, (Reported) Entered as Reported by: ANGELITO GORE on 09/25/20 104 Furosemide (Furosemide) 20 Mg Tablet, 20 MG PO DAILY, (Reported) Entered as Reported by: ANGELITO GORE on 09/25/20 104 Potassium Chloride (Potassium Chloride) 20 Meq Tablet.er, 20 MEQ PO DAILY, (Reported) Entered as Reported by: DOMINIQUE ABRAHAM on 11/29/17 151 Physical Exam-Cardiology Physical Exam Vital Signs/I&O 11/13/22 11/13/22 11/13/22 11/13/22 21:10 21:15 21:30 21:45 Temp 37.0 Pulse 80 Resp 15 16 15 B/P (MAP) 143/66 (97) 147/70 (104) 141/65 (99) Pulse Ox 97 95 94 95 O2 Delivery Room Air Room Air Room Air FiO2 21 11/13/22 11/13/22 11/13/22 11/13/22 21:58 22:00 23:00 23:58 Temp 36.2 Pulse 69 61 66 Resp 12 14 B/P (MAP) 130/82 (92) 133/61 (89) Pulse Ox 96 91 O2 Delivery Room Air Room Air 11/14/22 11/14/22 11/14/22 11/14/22 00:00 01:00 01:00 02:00 Pulse 67 65 65 63 Resp 27 15 B/P (MAP) 140/89 (116) 136/65 (93) 137/69 (96) Pulse Ox 95 91 92 O2 Delivery Room Air Room Air Room Air 11/14/22 11/14/22 11/14/22 11/14/22 04:22 04:28 07:30 08:00 Temp 36.6 36.3 Pulse 66 65 60 Resp 14 B/P (MAP) 155/78 (103) 139/90 (106) Pulse Ox 95 94 O2 Delivery Room Air Room Air 11/14/22 00:00 Intake Total 160 ml Output Total 250 ml Balance -90 ml Capillary Refill : Less Than 3 Seconds Constitutional: AAO x 3, well-developed, well-nourished HEENT: EOMI, hearing is well preserved; No xanthelasmas are seen Neck: carotid pulses are 2 + bilaterally, with good upstrokes Respiratory: No accessory muscle use; chest expansion is symmetric, chest is bilaterally symmetric, other (good, bilateral air entry) Cardiovascular: regular rate-rhythm, S1 and S2, systolic murmur (soft JENNY at card base) Gastrointestinal: No tender; soft; No guarding, No rebound; audible bowel sounds Extremities: No clubbing, No cyanosis, No significant edema Neurologic/Psychiatric: oriented x 3, other (moves all limbs) Skin: No rash on exposed areas, No ulcerations on exposed areas Data Review Labs Laboratory Tests 11/13/22 17:37: White Blood Count 7.6, Red Blood Count 4.93, Hemoglobin 14.1, Hematocrit 43, Mean Corpuscular Volume 86, Mean Corpuscular Hemoglobin 29, Mean Corpuscular Hemoglobin Concent 33, Red Cell Distribution Width 14.5, Platelet Count 252, Mean Platelet Volume 9.7, Immature Granulocyte % (Auto) 0, Neutrophils (%) (Auto) 58, Lymphocytes (%) (Auto) 31, Monocytes (%) (Auto) 8, Eosinophils (%) (Auto) 3, Basophils (%) (Auto) 1, Neutrophils # (Auto) 4.4, Lymphocytes # (Auto) 2.3, Monocytes # (Auto) 0.6, Eosinophils # (Auto) 0.2, Basophils # (Auto) 0.1, Immature Granulocyte # (Auto) 0.0, Prothrombin Time 13.2, INR Comment 1.0, Activated Partial Thromboplast Time 28, Sodium Level 140, Potassium Level 3.7, Chloride Level 106, Carbon Dioxide Level 23, Anion Gap 11, Blood Urea Nitrogen 14, Creatinine 0.91, Estimat Glomerular Filtration Rate 62, BUN/Creatinine Ratio 15, Glucose Level 98, Calcium Level 9.3, Corrected Calcium 9.1, Total Bilirubin 0.3, Aspartate Amino Transf (AST/SGOT) 17, Alanine Aminotransferase (ALT/SGPT) 11, Alkaline Phosphatase 88, Troponin I < 0.30, Total Protein 7.4, Albumin 4.3 11/13/22 18:10: Urine Color YELLOW, Urine Clarity CLEAR, Urine pH 6.5, Urine Specific [place] <=1.005, Urine Protein NEGATIVE, Urine Glucose (UA) NEGATIVE, Urine Ketones NEGATIVE, Urine Nitrite NEGATIVE, Urine Bilirubin NEGATIVE, Urine Urobilinogen 0.2, Urine Leukocyte Esterase NEGATIVE, Urine RBC (Auto) NEGATIVE, Urine RBC 0- 2, Urine WBC RARE, Urine Squamous Epithelial Cells 5-10, Urine Crystals NONE, Urine Bacteria NEGATIVE, Urine Casts NONE, Urine Mucus NEGATIVE, Urine Culture Indicated NO 11/14/22 04:06: White Blood Count 5.6, Red Blood Count 4.33, Hemoglobin 12.3, Hematocrit 37, Mean Corpuscular Volume 86, Mean Corpuscular Hemoglobin 28, Mean Corpuscular Hemoglobin Concent 33, Red Cell Distribution Width 14.5, Platelet Count 222, Mean Platelet Volume 9.9, Immature Granulocyte % (Auto) 0, Neutrophils (%) (Auto) 52, Lymphocytes (%) (Auto) 33, Monocytes (%) (Auto) 10, Eosinophils (%) (Auto) 4, Basophils (%) (Auto) 1, Neutrophils # (Auto) 2.9, Lymphocytes # (Auto) 1.8, Monocytes # (Auto) 0.5, Eosinophils # (Auto) 0.2, Basophils # (Auto) 0.1, Immature Granulocyte # (Auto) 0.0, Sodium Level 143, Potassium Level 3.4L, Chloride Level 111H, Carbon Dioxide Level 22, Anion Gap 10, Blood Urea Nitrogen 11, Creatinine 0.78, Estimat Glomerular Filtration Rate 75, BUN/Creatinine Ratio 14, Glucose Level 87, Calcium Level 8.3L, Corrected Calcium 8.6, Total Bilirubin 0.4, Aspartate Amino Transf (AST/SGOT) 15, Alanine Aminotransferase (ALT/SGPT) 14, Alkaline Phosphatase 58, Total Protein 6.1L, Albumin 3.6, Triglycerides Level 104, Cholesterol Level 147, LDL Cholesterol Direct 91, VLDL Cholesterol 21, HDL Cholesterol 44 A/P-Cardiology Assessment/Admission Diagnosis TIA on 11/13/22 and h/o h'hagic (subarachnoid) in October 2020 - being managed by Dr Messer Hypokalemia, likely due to chronic diuretic therapy Hypertension Discussion and Recomendations * Echo * Amlodipine 5 mg po daily for hypertension * D/c diuretics * Replenish K * Zio XT patch for two weeks (to eval for any occult A Fib) and f/u at our office after that * Management of stroke and antiplatelet therapy or any other therapy for stroke is with Dr Messer (I communicated with Dr Messer) Clinical Quality Measures Stroke: Date of last known well: Nov 13, 2022 Time of last known well: 13:00 KALPANA SIMMONS MD FACP FAC CCDS November 14, 2022 09:08
[2022-11-14] MEDS: ENOXAPARIN 40 MG/0.4 ML (LOVENOX) SYR SC SCH (09:20)
[2022-11-14] MEDS: DOCUSATE SODIUM 100 MG (COLACE) CAP PO SCH (09:25)
--- NOTE | 2022-11-14 09:40 | ST Cognitive Linguistic Eval ---
Speech Evaluation-General Medical Diagnosis Suspected TIA Onset Date: November 14, 2022 Therapy Diagnosis Therapy Diagnosis: Baseline Dysarthria, Baseline Anomia Precautions Precautions: Fall Precautions/Isolations: Fall Prevention, Standard Precautions Referral Referring Physician: Dr. Messer Reason for Referral: Evaluation/Treatment Medical History Pertinent Medical History: Dementia, GERD, HTN Reviewed History: Yes Speech PLF-Current Status Prior Level of Function The patient stated she is currently displaying baselined dysarthria and anomia. The clinician asked the patient is she felt the anomia or dysarthria had worsened any amount since the onset of symptoms or throughout her hospital stay. Per patient, "No, it's exactly how I was." The patient denied swallowing concerns, including s/s of suspected aspiration with any P.O. consistency she currently consumed. Subjective The patient was seated upright in her recliner, awake and alert, upon entrance to her room by the clinician. The patient greeted the clinician appropriately and was agreeable to participation in the cognitive linguistic evaluation. Please see the above "prior level of function" comments for information regarding the patient's baseline dysarthria and anomia. Language Eval: Auditory Comprehends Simple Yes/No Ques: Functional Indent/Objects Multiple Fay: Functional Ident/Pics in Multiple Fay: Functional Follows 1-Step Commands: Functional Follows General Conversations: Functional Language Eval: Verbal Language Completes Spontaneous Greeting: Functional Produces Auto, Serial Info: Functional Imitates Simple Words/Phrases: Functional Word Finding: Mild Requests Basic Needs: Functional States Basic Personal Info: Functional Language Evaluation: Reading Comprehends Single Nouns: Functional Follows Simple Written Direct: Functional Comprehends Multiple Sentences: Functional Cognitive Patient Orientation The patient was independently oriented to self, location, month ("It's my birthday on the !"), and year. Objective Cognitive Domain Attention: WNL Objective Oral Motor/Speech Production The patient demonstrated dysarthria (mild) characterized by intermittently, imprecise (slight) articulation and reduced rate of speech. The patient remained 100% intelligible in known and unknown contexts. Per patient, the dysarthria has not worsened or improved from her baseline function throughout her recent hospitalization. Impression The patient demonstrated mild dysarthria and mild anomia. The patient reports the mild dysarthria and anomia are her baseline function and a result of a prior hospitalization "many years ago." The patient denied a decline or concern with her speech, language, cognition, or swallowing skills. The clinician will monitor the patient throughout her acute hospitalization. Discussions regarding outpatient speech pathology services occurred, however, the patient is concerns with transportation options. ST will continue discussions and provide appropriate resources for discharge. Speech Short Term Goals Short Term Goals Short Term Goals 1. The patient will demonstrate 80% accuracy with oral motor exercises, inde pendently. Speech Prison Goals Prison Goals 1. The patient will display improved articulation and word-finding strategies for safe discharge to the least restrictive environment. Speech-Plan Treatment Plan Speech Therapy Treatment Plan: Continue Plan of Care Treatment Duration: November 17, 2022 Frequency: 1 time per week Estimated Hrs Per Day: .25 hour per day Rehab Potential: Fair Pt/Family Agrees to Plan: Yes Safety Risks/Education Teaching Recipient: Patient Teaching Methods: Discussion Response to Teaching: Verbalize Understanding Education Topics Provided: Results, Recommendations, Plan of Care Time Speech Therapy Time In: 09:00 Speech Therapy Time Out: 09:25 DATE: November 14, 2022 Total Billed Time: 25 Billed Treatment Time 1AMBAR DYST LOY, ELIZABETH ST November 14, 2022 09:40
[2022-11-14] MEDS ORDERED: amLODIPine 5 MG (NORVASC) TAB PO NR (10:00)
[2022-11-14] MEDS ORDERED: KCL 20 MEQ TAB (K-DUR) PO NR (10:00)
--- NOTE | 2022-11-14 10:42 | Diagnostic Imaging Report ---
PROCEDURE: MR imaging of the brain without contrast. TECHNIQUE: Multiplanar, multisequence MR imaging of the brain was performed without contrast. INDICATION: Weakness, evaluate for stroke. COMPARISON: Correlation is made with the prior MRI of the brain from 03/17/2017. FINDINGS: The ventricles and sulci are prominent, consistent with cerebral volume loss. There are extensive periventricular and subcortical white matter changes, consistent with chronic microvascular ischemia. There is no midline shift. No acute intra-axial or extra-axial hemorrhage is detected. There is a tiny focus of diffusion restriction noted in the high left frontoparietal lobe, suggestive of a microinfarct. No other areas of diffusion restriction are seen. The normal expected flow-voids within the carotid siphons are seen. The corpus callosum is unremarkable. The sella and parasellar structures are unremarkable. IMPRESSION: Findings suggestive of a microinfarct in the high left frontoparietal lobe subcortical white matter. No other acute feature is identified. There is no acute hemorrhage. There are extensive changes of chronic microvascular ischemia. Dictated by: Dictated on workstation # [id number]
--- NOTE | 2022-11-14 11:12 | History & Physical-Hospitalist ---
JUAN JOSE DUKE 11/14/22 1112: History of Present Illness HPI/Chief Complaint Harmony Hansen is an 86 yo F with notable PMH of HTN and SAH (October 2020) present ing as referral for aphasia at an urgent care. Yesterday around 1pm she noted she was having trouble getting her words out and was concerned that she'd had a stroke. She was taken to an urgent care around 4pm and referred to this ED for aphasia. She notes her symptoms of having difficulty expressing words lasted only a few minutes, and she denies weakness, numbness, PADRON, changes in vision, or other symptoms associated. In ED, she received full stroke workup as documented per ED note below. CT/CTA of the head and neck was obtained and demonstrated no obvious intracranial hemorrhage and was negative for any acute findings per the radiology report. [facility] stroke neurologist, Dr. Keyes, was contacted and recommended admission for MRI of the brain as well as an echo. He also recommended loading with Plavix 300 followed by 75 mg for 21 days. Also recommended daily aspirin and a high intensity statin. He recommended a heart monitor as an outpatient to check for A-fib as well. In ED basic labs obtained with IV placement and her glucose is 98, creatinine normal, troponin negative, normal hemoglobin, urinalysis without evidence of infection. EKG ordered and interpreted showing no acute ischemic changes and sinus rhythm. This am pt is doing well. She is without dysarthria or other neuro deficits. She has had good UOP and regular BM, has been ambulating around room with no new di fficulties, denies n/v/f/c and endorses eating and drinking well. NIH Stroke Scale Assessment Select: Initial Level of Consciousness: 0=Alert (0), Level of Consciousness- Questions: 0=Answers both month/age (0), LOC Commands: 0=Performs both tasks (0), Gaze: Normal (0), Visual Fay: 0=No visual loss (0), Facial Movement (Facial Paresis): 0=Normal symmetrical mnt (0), Motor Function-Arms Right: 0=No drift (0), Motor Function-Arms Left: 0=No drift (0), Motor Function-Legs Right: 0=No drift (0), Motor Function-Legs Left: 0=No drift (0), Limb Ataxia: 0=Absent (0), Sensory: 0=Normal:no loss (0), Best Language: 0=No aphasia (0), Dysarthria: 1=Mild to moderate loss (1), Extinction & Inattention: 0=No abnormality (0), Total: 1 Stroke Thrombolytic Exclusion Age 18 or Over: Yes Acute intenal hemorrhage: No History of CVA: No Uncontrolled Coagulation Defec: No Intracranial Hemorrhage: No Severe Hypertension: No GI or Bleed: No Subarachnoid Hemorrhage: Yes (history of SAH) Intracranial Neoplasm/Aneurysm: No Oral Anticoagulants: No Surgery or Trauma: No Puncture of Non-Compressible V: No Recent CPR: No Diabetic Hemorrhagic Retinopat: No Organ Biopsy: No Recent Obstetric Delivery: No Glucose: No Significant Hepatic Dysfunctio: No NIH Stoke Scale >22: No Bacterial Endocarditis: No Pericarditis: No Improving Symptoms: Yes Platelets: No TPA Contraindication: Yes IV - TPa Received IV - TPa Procedure Performed?: No Date Seen 11/14/22 Attending Physician Center/[facility] PCP Admitting Physician: Caitie Mchugh DO Attending Physician: Caitie Mchugh DO Referring Physician Date of Admission Nov 13, 2022 at 20:32 Home Medications & Allergies Home Medications Reviewed patient Home Medication Reconciliation performed by pharmacy medication reconciliations cell technician and/or nursing. Patients Allergies have been reviewed. Allergies Allergies Coded Allergies ciprofloxacin (Unverified Allergy, Unknown, 02/13/17) oxycodone (Unverified Allergy, Unknown, Pt has rec Lortab, Morphine, Dilaudid in the past, 09/30/20) sulfamethoxazole (Unverified Allergy, Unknown, 02/13/17) trimethoprim (Unverified Allergy, Unknown, 02/13/17) Past Etitzqf-Cjamju-Eplgdd Hx Patient Social History Tobacco Use?: No Smoking Status: Never a Smoker Smokeless Tobacco Frequency: Never a User Use of E-Cig and/or Vaping dev: No Substance use?: No Alcohol Use?: No Pt feels they are or have been: No Immunizations Up To Date First/Initial COVID19 Vaccinat: 08/06 Second COVID19 Vaccination Taz: 09/06 Tetanus Booster (TDap): Unknown Seasonal Allergies Seasonal Allergies: No Current Status Advance Directives: Yes Advance Directive Location: Home Communicates: Verbally Primary Language: Somali Preferred Spoken Language: Somali Is interpretation needed?: No Implanted or Applied Medical D: Orthopedic hardware Past Medical History Surgeries: Breast, Section, Gallbladder, Orthopedic Currently Using CPAP: No Currently Using BIPAP: No Hypertension Dementia Sexually Transmitted Disease: No HIV/AIDS: No UTI-Chronic Gastrointestinal Bleed, Chronic Constipation Back Injury, Chronic Back Pain, Fractures Skin, Breast Did You Recieve Any Treatments: Yes What Type of Treatment Did You: Surgical Intervention Anxiety, Depression 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) Family Medical History Heart Disease, Hypertension Review of Systems Constitutional: No weight gain, No weight loss EENTM: no symptoms reported; No ear discharge, No hearing loss, No blurred vision, No double vision, No vision loss Respiratory: no symptoms reported Cardiovascular: no symptoms reported Gastrointestinal: No abdominal pain, No constipation, No diarrhea, No nausea, No vomiting Genitourinary: no symptoms reported Physical Exam Physical Exam Vital Signs Vital Signs - First Documented 11/13/22 11/13/22 17:35 21:10 Temp 37.0 Pulse 80 Resp 18 B/P (MAP) 178/80 (112) Pulse Ox 97 O2 Delivery Room Air FiO2 21 Capillary Refill : Less Than 3 Seconds Height, Weight, BMI Height: 5'2.00" Weight: 164lbs. 6.0oz. [id number]; 40.17 BMI Method:Stated General Appearance: No Apparent Distress, WD/WN HEENT: PERRL/EOMI, Pharynx Normal, Moist Mucous Membranes Neck: Full Range of Motion, Normal Inspection, Non Tender, Supple Respiratory: Chest Non Tender, Lungs Clear, Normal Breath Sounds, No Accessory Muscle Use, No Respiratory Distress Cardiovascular: Regular Rate, Rhythm, No Edema, No Gallop, No JVD, Normal Peripheral Pulses Gastrointestinal: Normal Bowel Sounds, No Organomegaly, No Pulsatile Mass, Non Tender, Soft Extremity: Normal Capillary Refill, Normal Inspection, Normal Range of Motion, Non Tender, No Calf Tenderness, No Pedal Edema Neurologic/Psychiatric: Alert, Oriented x3, No Motor/Sensory Deficits, Normal Mood/Affect, word processor operator II-XII Norm as Tested Skin: Normal Color, Warm/Dry Results Results/Procedures Labs Laboratory Tests 11/13/22 17:37 11/14/22 04:06 Patient resulted labs reviewed. Assessment/Plan Admission Diagnosis Dysarthria Assessment and Plan TIA vs. Stroke Dysarthria (resolved) - likely 2/2 HTN - CT Head/CTA head and neck: normal vasculature w/o large vessel occlusion EKG NSR, - MRI pending - Cards on board for workup of cardiac etiology, appreciate recs - Holding plavix with recent SAH - cont ASA and lovenox - Speech consult - Start PT and OT HTN - cardiology onboard, started amlodipine - appreciate recs Clinical Quality Measures Stroke: Date of last known well: Nov 13, 2022 Time of last known well: 13:00 CAITIE MCHUGH DO 11/14/222122: History of Present Illness Source: patient Exam Limitations: no limitations Time Seen by a Provider: 09:00 Past Mbbtedm-Utzrac-Fqjvvb Hx Patient Social History Marrital Status: single Employed/Student: retired Smoking Status: Never a Smoker Past Medical History High Cholesterol, Hypertension Stroke Review of Systems Constitutional: see HPI Physical Exam Physical Exam General Appearance: No Apparent Distress, Chronically ill Respiratory: Lungs Clear, Normal Breath Sounds Cardiovascular: Regular Rate, Rhythm Neurologic/Psychiatric: Alert, Oriented x3, No Motor/Sensory Deficits, Normal Mood/Affect Assessment/Plan Admission Diagnosis Assessment: Dysarthria CVA subacute on MRI HTN HLP Plan: PT OT Monitor BP Admission Status: Observation Supervisory-Addendum Brief Verification & Attestation Participated in pt care: history, MDM, physical Personally performed: exam, history, MDM, supervision of care Care discussed with: Medical Student Procedures: n/a Results interpretation: Verified all documentation Verification and Attestation of Medical Student E/M Service A medical student performed and documented this service in my presence. I reviewed and verified all information documented by the medical student and made modifications to such information, when appropriate. I personally performed the physical exam and medical decision making. Caitie Mchugh, November 14, 2022,21:23 JUANJ OSE DUKE November 14, 2022 11:12 CAITIE MCHUGH DO November 14, 2022 21:23
[2022-11-14] MEDS ORDERED: POTA10TA PO (11:24)
[2022-11-14] MEDS ORDERED: ACET-2840 PO (11:24)
[2022-11-14] MEDS ORDERED: OMEP40CA6 PO (11:24)
--- NOTE | 2022-11-14 13:02 | Diagnostic Imaging Report ---
PROCEDURE: US carotid duplex, bilateral. TECHNIQUE: Multiple real-time grayscale images were obtained over the carotid arteries in various projections, bilaterally. Additional spectral analysis and color Doppler duplex images were also obtained. INDICATION: 86-year-old female, dysarthria, weakness TECHNIQUE: Multiple real-time grayscale images were obtained over the carotid arteries in various projections bilaterally. Additional spectral analysis and color Doppler and Duplex images were also obtained. CORRELATION: None FINDINGS: Color images demonstrate mild atherosclerotic plaque throughout the common carotid arteries, carotid bulbs as well as internal and external carotid arteries. Right carotid circulation: The right common carotid artery is normal in course and caliber. The right internal carotid artery is patent. No hemodynamically significant stenosis is present at this time. Right external carotid artery is patent. Left carotid circulation: The left common carotid artery is normal in course and caliber. The left internal carotid artery is patent. No hemodynamically significant stenosis is present at this time. Left external carotid artery is patent. Antegrade flow in the bilateral vertebral arteries. DOPPLER (peak systolic velocity M/S Right Left CCA .58 .61 ICA Proximal .54 .63 ICA Mid .55 .71 ICA Distal .54 1.57 RATIO .95 2.58 ECA .92 1.14 VERT .73 .67 IMPRESSION: 1. Mild diffuse atherosclerosis involving bilateral carotid arteries. 2. No hemodynamically significant stenosis of the internal carotid arteries at this time. Parameters based on the consensus panel Donahue-Scale and Doppler ultrasound criteria published May 2003, Radiology, Volume 229. Dictated by: Dictated on workstation # [id number]
--- NOTE | 2022-11-14 15:12 | Physical Therapy Evaluation ---
PT Evaluation-General Medical Diagnosis Admission Date Nov 13, 2022 at 20:32 Medical Diagnosis: Suspected TIA Onset Date: November 14, 2022 Therapy Diagnosis Therapy Diagnosis: debility/weakness Height/Weight Height (Feet): 5 Height (Inches): 2.00 Weight (Pounds): 164 Weight (Ounces): 6.0 Precautions Precautions/Isolations: Fall Prevention, Standard Precautions Referral Physician: Ayde Reason for Referral: Evaluation/Treatment Medical History Pertinent Medical History: Dementia, GERD, HTN Current History ER secondary to aphasia Reviewed History: Yes Social History Home: Single Level Current Living Status: Alone Prior Prior Level of Function SCALE: Activities may be completed with or without assistive devices. 4-Mjwynzuenm-vlydail completes the activity by him/herself with no assistance from a helper. 5-Set-up or Clean-up Assistance-helper sets up or cleans up; patient completes activity. Pierce assists only prior to or following the activity. 4-Supervision or Touching Assistance-helper provides verbal cues and/or touching/steadying and/or contact guard assistance as patient completes activity. Assistance may be provided throughout the activity or intermittently. 3-Partial/Moderate Assistance-helper does LESS THAN HALF the effort. Pierce lifts, holds or supports trunk or limbs, but provides less than half the effort. 2-Substantial/Maximal Assistance-helper does MORE THAN HALF the effort. Pierce lifts or holds trunk or limbs and provides more than half the effort. 6-Qiozvlmzs-fmnkuz does ALL the effort. Patient does none of the effort to complete the activity. Or, the assistance of 2 or more helpers is required for the patient to complete the activity. If activity was not attempted, code reason: 7-Patient Refused. 9-Not Applicable-not attempted and the patient did not perform the activity before the current illness, exacerbation or injury. 10-Not Attempted due to Environmental Limitations-(lack of equipment, weather restraints, etc.). 88-Not Attempted due to Medical Conditions or Safety Concerns. Bed Mobility: 6 Transfers (B,C,W/C): 6 Gait: 6 Indoor Mobility (Ambulation): Independent Prior Devices Use: None per patient and son PT Evaluation-Current Subjective Patient reluctantly agrees to PT. Objective Patient Orientation: Person ROM/Strength ROM Lower Extremities bilateral LE WFL Strength Lower Extremities 4-/5 grossly bilateral LE all planes Integumentary/Posture Bowel Incontinence: No Bladder Incontinence: No Posture WFL Neuromuscular (Tone, Coordination, Reflexes) grossly intact Sensory Vision: Functional Hearing: Functional Transfers Sit to Lying (QC): 6 Lying to Sitting/Side of Bed(Q: 6 Sit to Stand (QC): 4 Gait Mode of Locomotion: Walk Anticipated Mode of Locomotion: Walk Walk 10 feet (QC): 4 Walk 50 ft with 2 Turns(QC): 4 Walk 150 ft (QC): 4 Distance: 200' Gait Assistive Device: FWW Comments/Gait Description safe and functional with no deviation Balance Sitting Static: Normal Sitting Dynamic: Normal Standing Static: Normal Standing Dynamic: Normal Assessment/Needs Patient will be seen short term by skilled PT to address functional strength and mobility to improve current LOF to safely return to home at maximum LOF. Rehab Potential: Fair PT Cafeteria Team Leader Goals Cafeteria Team Leader Goals PT Cafeteria Team Leader Goals Time Frame: December 03, 2022 Roll Left & Right (QC): 6 Sit to Lying (QC): 6 Lying-Sitting on Side/Bed(QC): 6 Sit to Stand (QC): 6 Chair/Zql-ho-Xalcg Xfer(QC): 6 Toilet Transfer (QC): 6 Walk 10 feet (QC): 5 Walk 50ft with 2 Turns (QC): 5 Walk 150 ft (QC): 5 PT Plan Problem List Problem List: Activity Tolerance, Functional Strength, Safety, Balance, Gait, Transfer, Bed Mobility Treatment/Plan Treatment Plan: Continue Plan of Care Treatment Plan: Bed Mobility, Education, Functional Activity Deana, Functional Strength, Gait, Safety, Therapeutic Exercise, Transfers Treatment Duration: December 03, 2022 Frequency: 6 times per week Estimated Hrs Per Day: .25 hour per day Patient and/or Family Agrees t: Yes Time Time In: 1436 Time Out: 1452 DATE: November 14, 2022 Total Billed Treatment Time: 16 [facility] ONELIA [facility] November 14, 2022 15:12
--- NOTE | 2022-11-14 15:31 | Occupational Therapy Eval ---
OT Evaluation-General/PLF Medical Diagnosis Admission Date Nov 13, 2022 at 20:32 Medical Diagnosis: Suspected TIA Onset Date: November 14, 2022 Therapy Diagnosis Therapy Diagnosis: decreased tolerance to activity, impiaired safety/impulsivity Height/Weight Height (Feet): 5 Height (Inches): 2.00 Weight (Pounds): 164 Weight (Ounces): 6.0 Precautions Precautions/Isolations: Fall Prevention, Standard Precautions Weight Bear Status Weight Bearing Restriction: Full Weight Bearing Referral Physician: Ayde Referral Reason: Activity Tolerance, Self Care, Evaluation/Treatment Medical History Pertinent Medical History: Dementia, GERD, HTN Social History Home: Single Level Current Living Status: Alone During social history interview, patient reports environment and son present in room corrects patient, therapist attempts to obtain accurate information and son makes statement to therapist to not be condescending.Son turns chair towards window and refrains from further participation of evaluation ADL-Prior Level of Function SCALE: Activities may be completed with or without assistive devices. 5-Nenqkhoznz-jgsbwsd completes the activity by him/herself with no assistance from a helper. 5-Set-up or Clean-up Assistance-helper sets up or cleans up; patient completes activity. Sidney assists only prior to or following the activity. 4-Supervision or Touching Assistance-helper provides verbal cues and/or touching/steadying and/or contact guard assistance as patient completes activity. Assistance may be provided throughout the activity or intermittently. 3-Partial/Moderate Assistance-helper does LESS THAN HALF the effort. Sidney lifts, holds or supports trunk or limbs, but provides less than half the effort. 2-Substantial/Maximal Assistance-helper does MORE THAN HALF the effort. Sidney lifts or holds trunk or limbs and provides more than half the effort. 6-Zjlfnutxv-ltadpy does ALL the effort. Patient does none of the effort to complete the activity. Or, the assistance of 2 or more helpers is required for the patient to complete the activity. If activity was not attempted, code reason: 7-Patient Refused. 9-Not Applicable-not attempted and the patient did not perform the activity before the current illness, exacerbation or injury. 10-Not Attempted due to Environmental Limitations-(lack of equipment, weather restraints, etc.). 88-Not Attempted due to Medical Conditions or Safety Concerns. Self Care: Independent Functional Cognition: Independent Drive Self: Yes OT Current Status Subjective Patient is impulsive to transfer from bed and ambulate without foot covering or ADs, disconnection from monitors and safety gait belt Mental Status/Objective Patient Orientation: Person, Place ([place]) Attachments: Telemetry Current Glasses/Contacts: Yes (refused to wear) Upper Extremity ROM BUE ROM WFLS Upper Extremity Coordination WFLS Upper Extremity Sensation WFLS Upper Extremity Strength -4/5 WFLS BUE, PINCH 4/5 COMPOSITE GRASP +4/5 ADL-Treatment Eating (QC): 5 Oral Hygiene (QC): 4 Shower/Bathe Self (QC): 7 Upper Body Dressing (QC): 4 Lower Body Dressing (QC): 3 On/Off Footwear (QC): 1 (REFUSED, LIFTED LEG FOR THERPAIST OF DON SOCK) Toileting Hygiene (QC): 3 Education OT Patient Education: Correct positioning, Energy conservation, Instructions to caregiver, Modified ADL techniques, Progress toward Goal/Update tx plan, Purpose of tx/functional activities, Reviewed precautions, Rehab process, Safety issues, Transfer techniques Teaching Recipient: Patient, Family Teaching Methods: Demonstration, Discussion Response to Teaching: Reinforcement Needed OT Custodial Goals Custodial Goals Eating (QC): 6 Oral Hygiene (QC): 6 Toileting Hygiene (QC): 6 Shower/Bathe Self (QC): 6 Upper Body Dressing (QC): 6 Lower Body Dressing (QC): 6 On/Off Footwear (QC): 6 1=Demonstrate adherence to instructed precautions during ADL tasks. 2=Patient will verbalize/demonstrate understanding of assistive dev ices/modifications for ADL. 3=Patient will improve strength/tolerance for activity to enable patient to perform ADL's. OT Education/Plan Problem List/Assessment Assessment: Decreased Activ Tolerance, Decreased Safety Aware, Restricted Funct UE ROM Discharge Recommendations Plan/Recommendations: Continue POC Treatment Plan/Plan of Care Treatment,Training & Education: Yes Patient would benefit from OT for education, treatment and training to promote independence in ADL's, mobility, safety and/or upper extremity function for ADL's. Plan of Care: ADL Retraining, Functional Mobility, Group Exercise/Act as Ind, UE Funct Exercise/Act Treatment Duration: November 19, 2022 Frequency: 3 times per week (3-5 TIMES PER WEEK) Estimated Hrs Per Day: .25 hour per day Rehab Potential: Fair Time Start Time: 13:50 Stop Time: 14:10 DATE: November 14, 2022 Total Time Billed (hr/min): 20 Billed Treatment Time EVM 20 MIN NENO CR OT November 14, 2022 15:31
[2022-11-14] MEDS ORDERED: ASPI-1238 PO (15:46)
[2022-11-14] MEDS ORDERED: AMLO-250 PO (15:46)
[2022-11-14] MEDS ORDERED: ATOR40TA PO (15:46)
--- NOTE | 2022-11-14 15:46 | Discharge Summary ---
Discharge Summary Hospital Course Was the Problem List Reviewed?: Yes Problems/Dx: (1) CVA (cerebral vascular accident) Hospital Course Date of Admission: Nov 13, 2022 at 20:32 Admission Diagnosis : Family Physician/Provider: [facility] Date of Discharge: 11/14/22 Discharge Diagnosis: [ ] Hospital Course: Short course after admitted for suspicion of CVA. Dysarthria had resolved and all effects of confirmed CVA on MRI resolved so she was DC on ASA only due to h/o SAH 3 yrs ago and statin and was improved and ready for DC. Labs and Pending Lab Test: Laboratory Tests 11/13/22 17:37: White Blood Count 7.6, Red Blood Count 4.93, Hemoglobin 14.1, Hematocrit 43, Mean Corpuscular Volume 86, Mean Corpuscular Hemoglobin 29, Mean Corpuscular Hemoglobin Concent 33, Red Cell Distribution Width 14.5, Platelet Count 252, Mean Platelet Volume 9.7, Immature Granulocyte % (Auto) 0, Neutrophils (%) (Auto) 58, Lymphocytes (%) (Auto) 31, Monocytes (%) (Auto) 8, Eosinophils (%) (Auto) 3, Basophils (%) (Auto) 1, Neutrophils # (Auto) 4.4, Lymphocytes # (Auto) 2.3, Monocytes # (Auto) 0.6, Eosinophils # (Auto) 0.2, Basophils # (Auto) 0.1, Immature Granulocyte # (Auto) 0.0, Prothrombin Time 13.2, INR Comment 1.0, Activated Partial Thromboplast Time 28, Sodium Level 140, Potassium Level 3.7, Chloride Level 106, Carbon Dioxide Level 23, Anion Gap 11, Blood Urea Nitrogen 14, Creatinine 0.91, Estimat Glomerular Filtration Rate 62, BUN/Creatinine Ratio 15, Glucose Level 98, Calcium Level 9.3, Corrected Calcium 9.1, Total Bilirubin 0.3, Aspartate Amino Transf (AST/SGOT) 17, Alanine Aminotransferase (ALT/SGPT) 11, Alkaline Phosphatase 88, Troponin I < 0.30, Total Protein 7.4, Albumin 4.3 11/13/22 18:10: Urine Color YELLOW, Urine Clarity CLEAR, Urine pH 6.5, Urine Specific [place] <=1.005, Urine Protein NEGATIVE, Urine Glucose (UA) NEGATIVE, Urine Ketones NEGATIVE, Urine Nitrite NEGATIVE, Urine Bilirubin NEGATIVE, Urine Urobilinogen 0.2, Urine Leukocyte Esterase NEGATIVE, Urine RBC (Auto) NEGATIVE, Urine RBC 0- 2, Urine WBC RARE, Urine Squamous Epithelial Cells 5-10, Urine Crystals NONE, Urine Bacteria NEGATIVE, Urine Casts NONE, Urine Mucus NEGATIVE, Urine Culture Indicated NO 11/14/22 04:06: White Blood Count 5.6, Red Blood Count 4.33, Hemoglobin 12.3, Hematocrit 37, Mean Corpuscular Volume 86, Mean Corpuscular Hemoglobin 28, Mean Corpuscular Hemoglobin Concent 33, Red Cell Distribution Width 14.5, Platelet Count 222, Mean Platelet Volume 9.9, Immature Granulocyte % (Auto) 0, Neutrophils (%) (Auto) 52, Lymphocytes (%) (Auto) 33, Monocytes (%) (Auto) 10, Eosinophils (%) (Auto) 4, Basophils (%) (Auto) 1, Neutrophils # (Auto) 2.9, Lymphocytes # (Auto) 1.8, Monocytes # (Auto) 0.5, Eosinophils # (Auto) 0.2, Basophils # (Auto) 0.1, Immature Granulocyte # (Auto) 0.0, Sodium Level 143, Potassium Level 3.4L, Chloride Level 111H, Carbon Dioxide Level 22, Anion Gap 10, Blood Urea Nitrogen 11, Creatinine 0.78, Estimat Glomerular Filtration Rate 75, BUN/Creatinine Ratio 14, Glucose Level 87, Calcium Level 8.3L, Corrected Calcium 8.6, Total Bilirubin 0.4, Aspartate Amino Transf (AST/SGOT) 15, Alanine Aminotransferase (ALT/SGPT) 14, Alkaline Phosphatase 58, Total Protein 6.1L, Albumin 3.6, Triglycerides Level 104, Cholesterol Level 147, LDL Cholesterol Direct 91, VLDL Cholesterol 21, HDL Cholesterol 44 Home Meds Active Lipitor (Atorvastatin Calcium) 40 Mg Tablet 40 Mg PO DAILY Aspirin EC (Aspirin) 81 Mg Tablet.dr 81 Mg PO DAILY Amlodipine Besylate 5 Mg Tablet 5 Mg PO DAILY Reported Tylenol 8 Hour (Acetaminophen) 650 Mg Tablet.er 650 Mg PO Q6H PRN Omeprazole 40 Mg Capsule.dr 40 Mg PO DAILY K-Tab ER (Potassium Chloride) 10 Meq Tablet.er 10 Meq PO DAILY Furosemide 20 Mg Tablet 20 Mg PO DAILY Assessment/Pt Instructions PCP 1 week Discharge Planning: <30 minutes discharge planning Discharge Physical Examination Vital Signs Vital Signs Date Time Temp Pulse Resp B/P (MAP) Pulse Ox O2 Delivery O2 Flow Rate FiO2 11/14/22 13:02 66 11/14/22 12:00 36.9 18 134/69 (90) 96 Room Air 11/13/22 21:10 21 Allergies: Coded Allergies: ciprofloxacin (Unverified Allergy, Unknown, 02/13/17) oxycodone (Unverified Allergy, Unknown, Pt has rec Lortab, Morphine, Dilaudid in the past, 09/30/20) sulfamethoxazole (Unverified Allergy, Unknown, 02/13/17) trimethoprim (Unverified Allergy, Unknown, 02/13/17) Discharge Summary Date of Admission Nov 13, 2022 at 20:32 Date of Discharge Discharge Date: November 14, 2022 Admission Diagnosis Dysarthria Clinical Quality Measures Stroke: Date of last known well: Nov 13, 2022 Time of last known well: 13:00 KIA MCHUGH DO November 14, 2022 15:46
[2022-11-15] MEDS ORDERED: amLODIPine 5 MG (NORVASC) TAB PO SCH (09:00)
== END 2022-11-14 16:55 | disposition home or self-care (01) ==
LOC: EDUNIT# 17:32 → ER FS 17:34 → ICU 20:32
PROVIDERS: ADMIT Internal Medicine; ATTEND Internal Medicine
DX: I63.9 Cerebral infarction, unspecified (principal); R29.701 NIHSS score 1; I10 Essential (primary) hypertension; E78.5 Hyperlipidemia, unspecified; E87.6 Hypokalemia; G45.9 Transient cerebral ischemic attack, unspecified; Z86.79 Personal history of other diseases of the circulatory system
CPT/HCPCS: 36415; 70496; 70498; 70551; 71045; 80053 ×2; 80061; 81000; 84484; 85025 ×2; 85610; 85730; 92507; 92523; 93005; 93041; 93880; 97162; 97166; 99284; C8929; 93306; 96372; Q9967

== ENCOUNTER 2022-12-05 11:49 | Emergency (ER) | payer MEDICARE ==
[~2022-12-05] VITALS: Ht 152 cm; Wt 91.0 kg
[~2022-12-05 11:49] MED LIST changes: +ACET-2840 PO; +AMLO-250 PO; +ASPI-1238 PO; +ATOR40TA PO; +OMEP40CA6 PO; +POTA10TA PO
[2022-12-05 11:57] VITALS: BP 130/72
[2022-12-05 12:18] LABS: BASOPHILS # (AUTO) 0.1 10^3/uL (0.0-0.1); BASOPHILS % (AUTO) 1 % (0-10); EOSINOPHILS # (AUTO) 0.1 10^3/uL (0.0-0.3); EOSINOPHILS % (AUTO) 1 % (0-10); HEMATOCRIT 43 % (35-52); HEMOGLOBIN 14.7 g/dL (11.5-16.0); LYMPHOCYTES # (AUTO) 1.8 10^3/uL (1.0-4.0); LYMPHOCYTES % (AUTO) 19 % (12-44); MEAN CORPUSCULAR HEMOGLOBIN 29 pg (25-34); MEAN CORPUSCULAR HGB CONC 34 g/dL (32-36); MEAN CORPUSCULAR VOLUME 86 fL (80-99); MEAN PLATELET VOLUME 9.7 fL (9.0-12.2); MONOCYTES # (AUTO) 0.6 10^3/uL (0.0-1.0); MONOCYTES % (AUTO) 6 % (0-12); NEUTROPHILS # (AUTO) 6.9 10^3/uL (1.8-7.8); NEUTROPHILS % (AUTO) 73 % (42-75); PLATELET COUNT 272 10^3/uL (130-400); WHITE BLOOD COUNT 9.5 10^3/uL (4.3-11.0)
[2022-12-05 12:28] LABS: PROTHROMBIN TIME PATIENT 13.3 SEC (12.2-14.7)
--- NOTE | 2022-12-05 12:35 | Diagnostic Imaging Report ---
PROCEDURE: CT head wo r/o stroke. TECHNIQUE: Multiple contiguous axial images were obtained through the brain without the use of intravenous contrast. Auto Exposure Controls were utilized during the CT exam to meet ALARA standards for radiation dose reduction. INDICATION: Difficulty concentrating. Comparison is made with prior head CT from 08/26/2021. FINDINGS: The ventricles and sulci are prominent consistent with cerebral volume loss. No sulcal effacement is identified. There is no midline shift. No acute intra-axial or extra-axial hemorrhage is detected. Cisterns are patent. Visualized paranasal sinuses are clear. IMPRESSION: No acute intracranial process is detected. Dictated by: Dictated on workstation # [id number]
[2022-12-05 12:38] LABS: ALANINE AMINOTRANSFERASE 13 U/L (0-55); ALKALINE PHOSPHATASE 85 U/L (40-136); BILIRUBIN,TOTAL 0.4 MG/DL (0.1-1.0); BUN/CREATININE RATIO 17; CALCIUM 9.5 MG/DL (8.5-10.1); CARBON DIOXIDE 24 MMOL/L (21-32); CHLORIDE 100 MMOL/L (98-107); CREATININE SERUM 1.04 MG/DL (0.60-1.30); GFR ESTIMATED 53; GLUCOSE 118 MG/DL (70-105); POTASSIUM 3.8 MMOL/L (3.6-5.0); SODIUM 138 MMOL/L (135-145); TOTAL PROTEIN 7.6 GM/DL (6.4-8.2)
--- NOTE | 2022-12-05 12:38 | ED General ---
General Chief Complaint: General Problems/Pain Stated Complaint: SLURRED SPEECH Nursing Triage Note: Patient has ambulated to ER 1 with cc of having trouble with her speech. Patient reports that she believes that she was normal when she got up. This morning when she went to pay bills she was having trouble with memory of the day and month and she noticed that she was having trouble with her speech. She called her son and she came to ER for evaluation. She reports that she feels "more wobbly" this morning. Source of Information: Patient, Old Records History of Present Illness Date Seen by Provider: December 05, 2022 Time Seen by Provider: 11:49 Initial Comments 87-year-old female presenting with complaints of having trouble with her speech and her memory when she was trying to do pills earlier this morning around 9 AM. Her son brought her to the emergency department for evaluation. She feels that things are improving at this point. She did have a recent admission on November 13 to [facility] for testing. At that time her CT angiogram of the head and neck did not show any large vessel occlusions, carotid ultrasound did not show any significant blockages, echocardiogram did not demonstrate any patent foramina ovale or acute abnormality, MRI had shown a area of the possible microinfarct in the high left frontoparietal lobe in the subcortical white matter. There was no hemorrhage. She had extensive chronic microvascular ischemic changes. Her history also includes a prior subarachnoid hemorrhage approximately 3 years ago that was felt to be related to high blood pressure. Due to the subarachnoid hemorrhage when she was discharged they had discharged her on 81 mg aspirin. Today her symptoms are similar to what had been going on October for her. She felt like her symptoms were resolving and doing better. She denies having any headache or pain. She denies any fall or injury. Timing/Duration: 1-3 Hours Severity: Mild Associated Systoms: No Chest Pain, No Cough, No Diaphoresis, No Fever/Chills, No Headaches, No Loss of Appetite, No Malaise, No Nausea/Vomiting, No Rash, No Seizure, No Shortness of Air, No Syncope, No Weakness Allergies and Home Medications Allergies Coded Allergies: ciprofloxacin (Unverified Allergy, Unknown, 02/13/17) oxycodone (Unverified Allergy, Unknown, Pt has rec Lortab, Morphine, Dilaudid in the past, 09/30/20) sulfamethoxazole (Unverified Allergy, Unknown, 02/13/17) trimethoprim (Unverified Allergy, Unknown, 02/13/17) Patient Home Medication List Home Medication List Reviewed: Yes Acetaminophen (Tylenol 8 Hour) 650 Mg Tablet.er, 650 MG PO Q6H PRN for PAIN-MILD (1-4), (Reported) Entered as Reported by: LUKAS MCKEON on 11/14/22 1124 Amlodipine Besylate (Amlodipine Besylate) 5 Mg Tablet, 5 MG PO DAILY Prescribed by: KIA MCHUGH on 11/14/22 1546 Aspirin (Aspirin EC) 81 Mg Tablet.dr, 81 MG PO DAILY Prescribed by: KIA MCHUGH on 11/14/22 1546 Atorvastatin Calcium (Lipitor) 40 Mg Tablet, 40 MG PO DAILY Prescribed by: KIA MCHUGH on 11/14/22 1546 Clopidogrel Bisulfate (Plavix) 75 Mg Tablet, 75 MG PO DAILY Prescribed by: BRENDA BAXTER on 12/05/22 1417 Furosemide (Furosemide) 20 Mg Tablet, 20 MG PO DAILY, (Reported) Entered as Reported by: ANGELITO GORE on 09/25/20 1045 Omeprazole (Omeprazole) 40 Mg Capsule.dr, 40 MG PO DAILY, (Reported) Entered as Reported by: LUKAS MCKEON on 11/14/22 1124 Potassium Chloride (K-Tab ER) 10 Meq Tablet.er, 10 MEQ PO DAILY, (Reported) Entered as Reported by: LUKAS MCKEON on 11/14/22 1124 Review of Systems Review of Systems Constitutional: No chills, No fever EENTM: no symptoms reported Respiratory: no symptoms reported Cardiovascular: no symptoms reported Gastrointestinal: no symptoms reported Genitourinary: no symptoms reported Musculoskeletal: no symptoms reported Skin: no symptoms reported Psychiatric/Neurological: See HPI Past [id number]-[id number] Hx Patient Social History Tobacco Use?: No Use of E-Cig and/or Vaping dev: No Substance use?: No Alcohol Use?: No Immunizations Up To Date First/Initial COVID19 Vaccinat: 08/06 Second COVID19 Vaccination Taz: 09/06 Third COVID19 Vaccination Date: 04/06 Seasonal Allergies Seasonal Allergies: No Past Medical History Surgery/Hospitalization HX: SUBARACHNOID HEMORRHAGE//CHOLECYSTECTOMY/L MASTECTOMY Surgeries: Yes (left mastecomy) Breast, Section, Gallbladder, Orthopedic Respiratory: No Currently Using CPAP: No Currently Using BIPAP: No Cardiac: Yes (CEREBROVASCULAR DISEASE) High Cholesterol, Hypertension 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) Stroke Reproductive Disorders: No Female Reproductive Disorders: Denies Sexually Transmitted Disease: No HIV/AIDS: No Genitourinary: No UTI-Chronic Gastrointestinal: Yes (CHRONIC UPPER GASTROINTESTINAL HEMORRHAGE) Gastrointestinal Bleed, Chronic Constipation Musculoskeletal: Yes Back Injury, Chronic Back Pain, Fractures Endocrine: No HEENT: No Cancer: Yes Skin, Breast Did You Recieve Any Treatments: Yes What Type of Treatment Did You: Surgical Intervention Psychosocial: Yes Anxiety, Depression Integumentary: Yes (SKIN CA) 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 6.0oz. 74.679821vq; 39.00 BMI Method:Stated General Appearance: No Apparent Distress, WD/WN HEENT: PERRL/EOMI, Pharynx Normal Neck: Full Range of Motion, Normal Inspection, Non Tender, Supple Respiratory: Chest Non Tender, Lungs Clear, Normal Breath Sounds Cardiovascular: Regular Rate, Rhythm, Normal Peripheral Pulses Gastrointestinal: Normal Bowel Sounds, No Pulsatile Mass, Non Tender, Soft Rectal: Deferred Extremity: Normal Capillary Refill, Normal Inspection, No Pedal Edema Neurologic/Psychiatric: Alert, Oriented x3, dough mixer II-XII Norm as Tested Skin: Normal Color, Warm/Dry Progress/Results/Core Measures Suspected Sepsis SIRS Temperature: Pulse: 78 Respiratory Rate: 14 Laboratory Tests 12/05/22 11:59: White Blood Count 9.5 Blood Pressure 130 /72 Mean: 91 Laboratory Tests 12/05/22 11:59: Creatinine 1.04, INR Comment 1.0, Platelet Count 272, Total Bilirubin 0.4 Results/Orders Lab Results Laboratory Tests Test 12/05/22 11:56 12/05/22 11:59 12/05/22 12:37 Range/Units Glucometer 120 H 70-110 MG/DL White Blood Count 9.5 4.3-11.0 10^3/uL Red Blood Count 5.05 3.80-5.11 10^6/uL Hemoglobin 14.7 11.5-16.0 g/dL Hematocrit 43 35-52 % Mean Corpuscular Volume 86 80-99 fL Mean Corpuscular Hemoglobin 29 25-34 pg Mean Corpuscular Hemoglobin Concent 34 32-36 g/dL Red Cell Distribution Width 14.3 10.0-14.5 % Platelet Count 272 130-400 10^3/uL Mean Platelet Volume 9.7 9.0-12.2 fL Immature Granulocyte % (Auto) 1 % Neutrophils (%) (Auto) 73 42-75 % Lymphocytes (%) (Auto) 19 12-44 % Monocytes (%) (Auto) 6 0-12 % Eosinophils (%) (Auto) 1 0-10 % Basophils (%) (Auto) 1 0-10 % Neutrophils # (Auto) 6.9 1.8-7.8 10^3/uL Lymphocytes # (Auto) 1.8 1.0-4.0 10^3/uL Monocytes # (Auto) 0.6 0.0-1.0 10^3/uL Eosinophils # (Auto) 0.1 0.0-0.3 10^3/uL Basophils # (Auto) 0.1 0.0-0.1 10^3/uL Immature Granulocyte # (Auto) 0.1 0.0-0.1 10^3/uL Prothrombin Time 13.3 12.2-14.7 SEC INR Comment 1.0 0.8-1.4 Activated Partial Thromboplast Time 29 24-35 SEC Sodium Level 138 135-145 MMOL/L Potassium Level 3.8 3.6-5.0 MMOL/L Chloride Level 100 98-107 MMOL/L Carbon Dioxide Level 24 21-32 MMOL/L Anion Gap 14 5-14 MMOL/L Blood Urea Nitrogen 18 7-18 MG/DL Creatinine 1.04 0.60-1.30 MG/DL Estimat Glomerular Filtration Rate 53 BUN/Creatinine Ratio 17 Glucose Level 118 H 70-105 MG/DL Calcium Level 9.5 8.5-10.1 MG/DL Corrected Calcium 9.2 8.5-10.1 MG/DL Total Bilirubin 0.4 0.1-1.0 MG/DL Aspartate Amino Transf (AST/SGOT) 20 5-34 U/L Alanine Aminotransferase (ALT/SGPT) 13 0-55 U/L Alkaline Phosphatase 85 40-136 U/L Troponin I < 0.30 <0.30 NG/ML Total Protein 7.6 6.4-8.2 GM/DL Albumin 4.4 3.2-4.5 GM/DL Urine Color YELLOW Urine Clarity CLEAR Urine pH 6.0 5-9 Urine Specific [place] 1.010 L 1.016-1.022 Urine Protein NEGATIVE NEGATIVE Urine Glucose (UA) NEGATIVE NEGATIVE Urine Ketones NEGATIVE NEGATIVE Urine Nitrite NEGATIVE NEGATIVE Urine Bilirubin NEGATIVE NEGATIVE Urine Urobilinogen 0.2 < = 1.0 MG/DL Urine Leukocyte Esterase NEGATIVE NEGATIVE Urine RBC (Auto) NEGATIVE NEGATIVE Urine RBC RARE /HPF Urine WBC NONE /HPF Urine Squamous Epithelial Cells 2-5 /HPF Urine Crystals NONE /LPF Urine Bacteria NEGATIVE /HPF Urine Casts NONE /LPF Urine Mucus NEGATIVE /LPF Urine Culture Indicated NO My Orders Orders - BRENDA BAXTER MD Cbc With Automated Diff (12/05/22 12:11) Protime With Inr (12/05/22 12:11) Partial Thromboplastin Time (12/05/22 12:11) Comprehensive Metabolic Panel (12/05/22 12:11) Troponin I Fs (12/05/22 12:11) Ua Culture If Indicated (12/05/22 12:11) Ekg Tracing (12/05/22 12:11) Accucheck Stat ONCE (12/05/22 12:11) Ed Iv/Invasive Line Start (12/05/22 12:11) Vital Signs Stroke Patient Q15M (12/05/22 12:11) Ct Head Wo-R/O Stroke (12/05/22 12:11) O2 (12/05/22 12:11) Intake & Output 06,14,22 (12/05/22 12:11) Monitor-Rhythm Ecg Trace Only (12/05/22 12:11) Dysphagia Screening Tool [id number] (12/05/22 12:11) Clopidogrel Tablet (Plavix Tablet) (12/05/22 14:07) Vital Signs/I&O 12/05/22 11:57 Temp 36.7 Pulse 78 Resp 14 B/P (MAP) 130/72 (91) Pulse Ox 97 O2 Delivery Room Air Capillary Refill : Blood Pressure Mean: 91 Point of Care Testing Finger Stick Blood Glucose: 130 Blood Glucose Action Taken: Dr. Baxter at bedside and aware. Progress Note #1: Progress Note Potential diagnosis of acute stroke, TIA, hypoglycemia, hyperglycemia, hypertension, hypotension, dehydration, urinary tract infection. Her initial NIH stroke scale was 0. I reviewed notes from hospitalist Dr. Bell Mchugh and the larriman helper Dr. Tilley from patient's recent hospital admission November 13 for stroke type symptoms. Establish peripheral IV access and placed on cardiac rolling down machine operator. Initial interpretation of the cardiac rolling down machine operator shows normal sinus rhythm with heart rate in the 60s. Send labs for complete blood count, comprehensive metabolic profile, coagulation factors, troponin, urinalysis. Obtain CT scan of the head without IV contrast to look for signs of acute stroke or bleeding. Electrocardiogram to further evaluate her heart rate and rhythm. Progress Note #2: Time: 12:41 Progress Note On my personal interpretation and review I did not appreciate any acute abnorma lities on the CT scan of the head without IV contrast. Her complete blood count was normal with white blood cell count 9.5. She was not anemic with a hemoglobin of 14.7. Her coagulation factors were not elevated for coagulopathy. Her comprehensive metabolic profile all did not show any acute electrolyte abnormalities or imbalance. Her renal and hepatic function was within normal range. Patient continues to have NIH stroke scale of 0. 1300 I reviewed the radiologist report of the CT head without IV contrast and they also did not see any acute process. Page placed to stroke neurologist to speak with them about recommendations for medication and treatment since patient recently had work-up for stroke and TIA when she was admitted on November 13. Urinalysis did not show any signs of UTI or infection and as stated before all of her blood work had appeared stable without acute significant abnormalities. Gibran Avitia RN from [facility] called back after speaking with the on- call neurologist Dr. Jefferson. She had reviewed the case and test results with the neurologist. The neurologist had recommended 3 weeks of combination therapy of aspirin and Plavix and then dropping down to monotherapy with aspirin. Since patient had just had stroke work-up 3 weeks ago and her symptoms had resolved here in the ED he agreed that she did not need repeat admission or repeat stroke work-up. Counseled to follow-up with primary care and if having additional symptoms or new changes to be reevaluated. I updated the patient and her son in the room about the plan and recommendations from neurology. Patient was given a dose of Plavix 75 mg p.o. x1 here in the ED and prescription sent to the pharmacy to continue 75 mg daily for 3 weeks. Also encouraged to continue taking the aspirin daily. Counseled that she would be at increased risk for bleeding and bruising with taking both of these medicines. Check back with clinic and may need additional medicine or testing as outpatient. Return if having worsening symptoms. ECG Initial ECG Impression Date: December 05, 2022 Initial ECG Impression Time: 12:27 Initial ECG Rate: 64 Initial ECG Rhythm: Normal Sinus Initial ECG Comparisson: Unchanged (11/13/2022) Comment On my personal interpretation and review the electrocardiogram shows a sinus rhythm with heart rate of 64 bpm. IN interval 192 ms. There is a right bundle branch block. No acute ST elevation. QT interval 481 ms with a QTc interval 490 ms. Overall appears similar to prior tracing from November 13, 2022. Diagnostic Imaging Diagonstic Imaging: CT Plain Films/CT/US/NM/MRI: head Comments NAME: RAMILA CHISHOLM [facility] REC#: [id number] PT STATUS: REG ER : 1935 PHYSICIAN: BRENDA BAXTER MD ADMIT DATE: 12/05/22/ER FS Draft Date of Exam:12/05/22 CT HEAD WO-R/O STROKE PROCEDURE: CT head wo r/o stroke. TECHNIQUE: Multiple contiguous axial images were obtained through the brain without the use of intravenous contrast. Auto Exposure Controls were utilized during the CT exam to meet ALARA standards for radiation dose reduction. INDICATION: Difficulty concentrating. Comparison is made with prior head CT from 08/26/2021. FINDINGS: The ventricles and sulci are prominent consistent with cerebral volume loss. No sulcal effacement is identified. There is no midline shift. No acute intra-axial or extra-axial hemorrhage is detected. Cisterns are patent. Visualized paranasal sinuses are clear. IMPRESSION: No acute intracranial process is detected. Dictated on workstation # [id number] Dict: 12/05/22 1230 Trans: 12/05/22 1234 [id number] Interpreted by: TORRES HARMON MD Electronically signed by: Reviewed: Reviewed by Me Departure Impression Primary Impression: TIA (transient ischemic attack) Disposition: 01 HOME, SELF-CARE Condition: Stable Departure-Patient Inst. Decision time for Depature: 14:16 Referrals: ARCELIA PRICE APRN (PCP) Primary Care Physician [facility] (Family) Primary Care Physician Patient Instructions: Transient Ischemic Attack ED Add. Discharge Instructions: The stroke neurologist from [place] recommended that you take Plavix in addition to the aspirin you are already taking to try and help prevent recurrent episodes like today. For the next 3 weeks you would take a dose of Plavix once a day in addition to your aspirin. After 3 weeks you would stop the Plavix and just take the aspirin. While taking the Plavix and aspirin it would make you easier to bleed so any cut or injury will bleed more. Follow-up with the clinic for continued care and evaluation. If they felt that you needed any changes in your medicine or continued blood thinners beyond the aspirin they can help arrange that. If you feel that you needed additional help at home you could check with the clinic as well about possibly getting home health or helping you move to an assisted living facility. All discharge instructions reviewed with patient and/or family. Voiced understanding. Scripts Clopidogrel Bisulfate (Plavix) 75 Mg Tablet 75 MG PO DAILY for TIA for 21 Days, #21 TAB 0 Refills Prov: BRENDA BAXTER MD 12/05/22 NIH Stroke Scale NIH Stroke Scale NIH : Select: Initial Level of Consciousness: 0=Alert Level of Consciousness-Questio: 0=Answers both month/age LOC Commands: 0=Performs both tasks Gaze: 0=Normal Visual Fay: 0=No visual loss Facial Movement (Facial Paresi: 0=Normal symmetrical mnt Motor Function-Arms Right: 0=No drift Motor Function-Arms Left: 0=No drift Motor Function-Legs Right: 0=No drift Motor Function-Legs Left: 0=No drift Limb Ataxia: 0=Absent Sensory: 0=Normal:no loss Best Language: 0=No aphasia Dysarthria: 0=Normal Extinction & Inattention: 0=No abnormality NIH Stroke Scale Score: 0 BRENDA BAXTER MD December 05, 2022 12:38
[2022-12-05 12:39] LABS: ALBUMIN 4.4 GM/DL (3.2-4.5)
[2022-12-05 12:40] LABS: BILIRUBIN,URINE NEGATIVE (NEGATIVE); CLARITY,URINE CLEAR; COLOR,URINE YELLOW; GLUCOSE, URINE (UA) NEGATIVE (NEGATIVE); KETONES,URINE NEGATIVE (NEGATIVE); LEUKOCYTE ESTERASE ,URINE NEGATIVE (NEGATIVE); NITRITE,URINE NEGATIVE (NEGATIVE); PROTEIN,URINE NEGATIVE (NEGATIVE)
[2022-12-05 12:45] LABS: BACTERIA,URINE NEGATIVE /HPF; RBC,URINE RARE /HPF
[2022-12-05] MEDS ORDERED: CLOPIDOGREL 75 MG (PLAVIX) TABLET PO STA (14:07)
[2022-12-05] MEDS ORDERED: CLOP-31 PO (14:17)
== END 2022-12-05 14:25 | disposition home or self-care (01) ==
LOC: ER FS 11:50
DX: G45.9 Transient cerebral ischemic attack, unspecified (principal); I45.10 Unspecified right bundle-branch block; Z79.82 Long term (current) use of aspirin
CPT/HCPCS: 36415; 70450; 80053; 81000; 82947; 84484; 85025; 85610; 85730; 93041

== ENCOUNTER 2023-06-26 13:21 | Emergency (ER) | payer MEDICARE ==
[~2023-06-26] VITALS: Ht 167 cm; Wt 83.0 kg
[~2023-06-26 13:21] MED LIST changes: +CLOP-31 PO; +POTA-185 PO; +POTA-330 PO; -POTA-51 PO; -POTA10TA PO
[2023-06-26 13:23] VITALS: BP 150/81
[2023-06-26 13:37] LABS: BASOPHILS # (AUTO) 0.1 10^3/uL (0.0-0.1); BASOPHILS % (AUTO) 1 % (0-10); EOSINOPHILS # (AUTO) 0.1 10^3/uL (0.0-0.3); EOSINOPHILS % (AUTO) 1 % (0-10); HEMATOCRIT 43 % (35-52); HEMOGLOBIN 14.8 g/dL (11.5-16.0); LYMPHOCYTES # (AUTO) 1.8 10^3/uL (1.0-4.0); LYMPHOCYTES % (AUTO) 19 % (12-44); MEAN CORPUSCULAR HEMOGLOBIN 29 pg (25-34); MEAN CORPUSCULAR HGB CONC 35 g/dL (32-36); MEAN CORPUSCULAR VOLUME 84 fL (80-99); MEAN PLATELET VOLUME 9.5 fL (9.0-12.2); MONOCYTES # (AUTO) 0.7 10^3/uL (0.0-1.0); MONOCYTES % (AUTO) 7 % (0-12); NEUTROPHILS # (AUTO) 6.8 10^3/uL (1.8-7.8); NEUTROPHILS % (AUTO) 72 % (42-75); PLATELET COUNT 279 10^3/uL (130-400); WHITE BLOOD COUNT 9.5 10^3/uL (4.3-11.0)
--- NOTE | 2023-06-26 13:37 | ED General ---
General Chief Complaint: General Problems/Pain Stated Complaint: WELL CHECK Nursing Triage Note: Patient has presented to ER by EMS with cc of having a "spell" on Monday 3 days ago. She reports that she was standing in the kitchen and became dizzy and felt like she "jerked". She reports that home health was there this morning and she was telling them and they wanted her to be seen. She called EMS for transport - she reporth she has not had a ride to come get her checked out. She denies any symptoms at this time. Source of Information: Patient, EMS, Old Records (Admit to [facility] 11/13/2022 for TIA work up showed microinfarct Left frontal lobe on MRI. CT angiography of head/neck, Echocardiogram and CT head without contrast did not show acute abnormality. ) History of Present Illness Date Seen by Provider: Jun 26, 2023 Time Seen by Provider: 13:21 Initial Comments 87-year-old female presenting with complaints of having an episode on June 23, near syncope. She states that she was standing in the kitchen and became dizzy and felt like her whole body jerked. She states that she has had multiple episodes like this in the past and been checked out but never found anything specific. She denied having any transport a way to get to the clinic or emergency department so she had not been seen. She had a home health nurse coming today and when she was telling him about the episode they wanted her to be seen and called EMS to get her transported. Patient states that she lives alone and does not have transportation or anyone to come pick her up. She is not currently having any symptoms and is felt at her baseline since Monday when this event happened. She states that she has had multiple events like this in the past and they had never found anything specific. Timing/Duration: 2-3 Days Severity: Moderate Associated Systoms: No Chest Pain, No Cough, No Diaphoresis, No Fever/Chills, No Headaches, No Loss of Appetite, No Malaise, No Nausea/Vomiting, No Rash, No Seizure, No Shortness of Air; Syncope (Near syncope); No Weakness Allergies and Home Medications Allergies Coded Allergies: ciprofloxacin (Unverified Allergy, Unknown, 02/13/17) oxycodone (Unverified Allergy, Unknown, Pt has rec Lortab, Morphine, Dila udid in the past, 09/30/20) sulfamethoxazole (Unverified Allergy, Unknown, 02/13/17) trimethoprim (Unverified Allergy, Unknown, 02/13/17) Patient Home Medication List Home Medication List Reviewed: Yes Acetaminophen (Tylenol 8 Hour) 650 Mg Tablet.er, 650 MG PO Q6H PRN for PAIN-MILD (1-4), (Reported) Entered as Reported by: LUKAS MCKEON on 11/14/22 1124 Amlodipine Besylate (Amlodipine Besylate) 5 Mg Tablet, 5 MG PO DAILY Prescribed by: KIA MCHUGH on 11/14/22 1546 Aspirin (Aspirin EC) 81 Mg Tablet.dr, 81 MG PO DAILY Prescribed by: KIA MCHUGH on 11/14/22 1546 Atorvastatin Calcium (Lipitor) 40 Mg Tablet, 40 MG PO DAILY Prescribed by: KIA MCHUGH on 11/14/22 1546 Clopidogrel Bisulfate (Plavix) 75 Mg Tablet, 75 MG PO DAILY Prescribed by: BRENDA BAXTER on 12/05/22 1417 Furosemide (Furosemide) 20 Mg Tablet, 20 MG PO DAILY, (Reported) Entered as Reported by: ANGELITO GORE on 09/25/20 1045 Omeprazole (Omeprazole) 40 Mg Capsule.dr, 40 MG PO DAILY, (Reported) Entered as Reported by: LUKAS MCKEON on 11/14/22 1124 Potassium Chloride (K-Tab ER) 10 Meq Tablet.er, 10 MEQ PO DAILY, (Reported) Entered as Reported by: LUKAS MCKEON on 11/14/22 1124 Review of Systems Review of Systems Constitutional: No chills, No diaphoresis, No dizziness, No fever, No malaise EENTM: No epistaxis, No nose congestion Respiratory: No cough, No short of breath Cardiovascular: No chest pain, No edema, No palpitations Gastrointestinal: No abdominal pain, No nausea, No vomiting Genitourinary: No dysuria Musculoskeletal: no symptoms reported Skin: no symptoms reported Psychiatric/Neurological: Anxiety; Denies Headache, Denies Numbness, Denies Paresthesia Past Ocdrqud-Oehvpv-Qrdkma Hx Patient Social History Tobacco Use?: No Use of E-Cig and/or Vaping dev: No Substance use?: No Alcohol Use?: No Immunizations Up To Date First/Initial COVID19 Vaccinat: 08/06 Second COVID19 Vaccination Taz: 09/06 Third COVID19 Vaccination Date: 04/06 Seasonal Allergies Seasonal Allergies: No Past Medical History Surgery/Hospitalization HX: SUBARACHNOID HEMORRHAGE//CHOLECYSTECTOMY/L MASTECTOMY Surgeries: Yes (left mastecomy) Breast, Section, Gallbladder, Orthopedic Respiratory: No Currently Using CPAP: No Currently Using BIPAP: No Cardiac: Yes (CEREBROVASCULAR DISEASE) High Cholesterol, Hypertension 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) Stroke Reproductive Disorders: No Female Reproductive Disorders: Denies Sexually Transmitted Disease: No HIV/AIDS: No Genitourinary: No UTI-Chronic Gastrointestinal: Yes (CHRONIC UPPER GASTROINTESTINAL HEMORRHAGE) Gastrointestinal Bleed, Chronic Constipation Musculoskeletal: Yes Back Injury, Chronic Back Pain, Fractures Endocrine: No HEENT: No Cancer: Yes Skin, Breast Did You Recieve Any Treatments: Yes What Type of Treatment Did You: Surgical Intervention Psychosocial: Yes Anxiety, Depression Integumentary: Yes (SKIN CA) 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 6.0oz. 74.884440sw; 29.00 BMI Method:Stated General Appearance: No Apparent Distress, WD/WN HEENT: PERRL/EOMI, Pharynx Normal Neck: Full Range of Motion, Normal Inspection, Non Tender, Supple; No Carotid Bruit Respiratory: Chest Non Tender, Lungs Clear, Normal Breath Sounds, No Accessory Muscle Use, No Respiratory Distress Cardiovascular: Regular Rate, Rhythm, Normal Peripheral Pulses Gastrointestinal: Normal Bowel Sounds, No Pulsatile Mass, Non Tender, Soft Rectal: Deferred Extremity: Normal Capillary Refill, Normal Inspection, No Pedal Edema Neurologic/Psychiatric: Alert, Oriented x3, No Motor/Sensory Deficits, Normal Mood/Affect, box puller II-XII Norm as Tested Skin: Normal Color, Warm/Dry Progress/Results/Core Measures Suspected Sepsis SIRS Temperature: Pulse: 88 Respiratory Rate: 20 Laboratory Tests 06/26/23 13:24: White Blood Count 9.5 Blood Pressure 150 /81 Mean: 104 Laboratory Tests 06/26/23 13:24: Creatinine 1.12, Platelet Count 279, Total Bilirubin 0.4 Results/Orders Lab Results Laboratory Tests Test 06/26/23 13:24 06/26/23 13:45 Range/Units White Blood Count 9.5 4.3-11.0 10^3/uL Red Blood Count 5.09 3.80-5.11 10^6/uL Hemoglobin 14.8 11.5-16.0 g/dL Hematocrit 43 35-52 % Mean Corpuscular Volume 84 80-99 fL Mean Corpuscular Hemoglobin 29 25-34 pg Mean Corpuscular Hemoglobin Concent 35 32-36 g/dL Red Cell Distribution Width 13.7 10.0-14.5 % Platelet Count 279 130-400 10^3/uL Mean Platelet Volume 9.5 9.0-12.2 fL Immature Granulocyte % (Auto) 0 % Neutrophils (%) (Auto) 72 42-75 % Lymphocytes (%) (Auto) 19 12-44 % Monocytes (%) (Auto) 7 0-12 % Eosinophils (%) (Auto) 1 0-10 % Basophils (%) (Auto) 1 0-10 % Neutrophils # (Auto) 6.8 1.8-7.8 10^3/uL Lymphocytes # (Auto) 1.8 1.0-4.0 10^3/uL Monocytes # (Auto) 0.7 0.0-1.0 10^3/uL Eosinophils # (Auto) 0.1 0.0-0.3 10^3/uL Basophils # (Auto) 0.1 0.0-0.1 10^3/uL Immature Granulocyte # (Auto) 0.0 0.0-0.1 10^3/uL Percent Immature Platelet Fraction 3.1 0.0-7.6 % Sodium Level 135 135-145 MMOL/L Potassium Level 3.8 3.6-5.0 MMOL/L Chloride Level 95 L 98-107 MMOL/L Carbon Dioxide Level 25 21-32 MMOL/L Anion Gap 15 H 5-14 MMOL/L Blood Urea Nitrogen 21 H 7-18 MG/DL Creatinine 1.12 0.60-1.30 MG/DL Estimat Glomerular Filtration Rate 48 BUN/Creatinine Ratio 19 Glucose Level 120 H 70-105 MG/DL Calcium Level 9.3 8.5-10.1 MG/DL Corrected Calcium 9.1 8.5-10.1 MG/DL Total Bilirubin 0.4 0.1-1.0 MG/DL Aspartate Amino Transf (AST/SGOT) 26 5-34 U/L Alanine Aminotransferase (ALT/SGPT) 18 0-55 U/L Alkaline Phosphatase 89 40-136 U/L Troponin I < 0.30 <0.30 NG/ML Total Protein 7.4 6.4-8.2 GM/DL Albumin 4.3 3.2-4.5 GM/DL Urine Color YELLOW Urine Clarity CLEAR Urine pH 6.0 5-9 Urine Specific Voca 1.010 L 1.016-1.022 Urine Protein NEGATIVE NEGATIVE Urine Glucose (UA) NEGATIVE NEGATIVE Urine Ketones NEGATIVE NEGATIVE Urine Nitrite NEGATIVE NEGATIVE Urine Bilirubin NEGATIVE NEGATIVE Urine Urobilinogen 0.2 < = 1.0 MG/DL Urine Leukocyte Esterase NEGATIVE NEGATIVE Urine RBC (Auto) NEGATIVE NEGATIVE Urine RBC NONE /HPF Urine WBC 0-2 /HPF Urine Squamous Epithelial Cells 2-5 /HPF Urine Crystals NONE /LPF Urine Bacteria NEGATIVE /HPF Urine Casts PRESENT /LPF Urine Hyaline Casts 2-5 H /LPF Urine Mucus NEGATIVE /LPF Urine Culture Indicated NO My Orders Orders - BRENDA BAXTER MD Comprehensive Metabolic Panel (06/26/23 13:29) Ua Culture If Indicated (06/26/23 13:29) Ed Iv/Invasive Line Start (06/26/23 13:29) Cbc And Automated Diff (06/26/23 13:29) Ct Head Wo (06/26/23 13:29) Troponin I Fs (06/26/23 13:29) Ekg Tracing (06/26/23 13:29) Vital Signs/I&O 06/26/23 13:23 Temp 36.2 Pulse 88 Resp 20 B/P (MAP) 150/81 (104) Pulse Ox 96 O2 Delivery Room Air Capillary Refill : Blood Pressure Mean: 104 Progress Note #1: Progress Note Differential diagnosis includes UTI, electrolyte abnormality, TIA, stroke, dehydration. Establish peripheral IV access and check labs for complete blood count, comprehensive metabolic profile, troponin, urinalysis. CT scan of the head without IV contrast to look for acute pathology to be contributing to her near syncope 3 days ago. Electrocardiogram to look for signs of ischemia or arrhythmia Progress Note #2: Time: 14:00 Progress Note Complete blood count shows a normal white blood cell count at 9.5. She is not anemic with a hemoglobin of 14.8. Comprehensive metabolic profile did not show any acute electrolyte abnormality to contribute to her complaint from 3 days ago. Her troponin was less than 0.3. No expect this would have been elevated if she was recently experiencing an MRI. Electrocardiogram shows sinus rhythm with a right bundle branch block and overall appears similar to tracing from December 05, 2022. Personal review and interpretation I did not appreciate any acute abnormality on the CT scan of the head without IV contrast. Urinalysis was not concentrated with a specific gravity of 1.010. She had no findings for UTI. Awaiting official reading on the CT scan of the head without IV contrast. Provided this does not show anything acute but discharged patient back to home. Encouraged her to follow-up with the primary care provider. Unable to give an exact answer of what happened on Monday but currently her tests all looked okay. 1407 CT scan of the head did not show any acute significant abnormality. She had chronic senescent changes. Will proceed with plan as above. Counseled to check back with primary care provider for continued evaluation and workup if ne eded. ECG Initial ECG Impression Date: Jun 26, 2023 Initial ECG Impression Time: 13:56 Initial ECG Rate: 73 Initial ECG Rhythm: Normal Sinus Initial ECG Comparisson: Unchanged (12/05/2022) Comment My personal interpretation and review the electrocardiogram shows a sinus rhythm with a heart rate of 73 bpm. There is a right bundle branch block. MT interval 200 ms. QT interval 462 ms with a QTc interval [address] elevation. There is some artifact on the tracing. Overall appears similar to tracing from December 05, 2022. Diagnostic Imaging Diagonstic Imaging: CT Plain Films/CT/US/NM/MRI: head Comments NAME: RAMILA CHISHOLM [facility] REC#: [id number] PT STATUS: REG ER : 1935 PHYSICIAN: BRENDA BAXTER MD ADMIT DATE: 06/26/23/ER FS Draft Date of Exam:06/26/23 CT HEAD WO PROCEDURE: CT head without contrast. TECHNIQUE: Multiple contiguous axial images were obtained through the brain without the use of intravenous contrast. Auto Exposure Controls were utilized during the CT exam to meet ALARA standards for radiation dose reduction. INDICATION: Near syncope. COMPARISON: Study compared with an exam of 12/05/2022. FINDINGS: Cerebral cortical atrophy, stable chronic finding. No intracerebral hemorrhage, hydrocephalus, edema, mass, mass effect, nor evidence for elevated intracerebral pressures. Some chronic dural and pineal calcifications are stable. No orbital, calvarial, or sinus pathology. IMPRESSION: Stable chronic senescent findings. No acute-appearing abnormality. Dictated on workstation # [id number] Dict: 06/26/23 1354 Trans: 06/26/23 1402 [id number] [id number] Interpreted by: FERNY TADEO Electronically signed by: Reviewed: Reviewed by Me Departure Impression Primary Impression: Near syncope Disposition: HOME, SELF-CARE Condition: Stable Departure-Patient Inst. Decision time for Depature: 14:11 Referrals: ARCELIA PRICE APRN (PCP) Primary Care Physician [facility] (Family) Primary Care Physician Patient Instructions: Near Fainting (DC) Add. Discharge Instructions: Try to stay well-hydrated and drink plenty of water. Continue taking your regular medications. Check back with primary care provider for continued concerns. Currently your testing did not show evidence of a UTI, acute stroke, heart attack, acute infection. All discharge instructions reviewed with patient and/or family. Voiced understanding. BRENDA BAXTER MD Jun 26, 2023 13:37
[2023-06-26 13:53] LABS: BILIRUBIN,URINE NEGATIVE (NEGATIVE); CLARITY,URINE CLEAR; COLOR,URINE YELLOW; GLUCOSE, URINE (UA) NEGATIVE (NEGATIVE); KETONES,URINE NEGATIVE (NEGATIVE); LEUKOCYTE ESTERASE ,URINE NEGATIVE (NEGATIVE); NITRITE,URINE NEGATIVE (NEGATIVE); PROTEIN,URINE NEGATIVE (NEGATIVE)
[2023-06-26 13:57] LABS: BACTERIA,URINE NEGATIVE /HPF; WBC,URINE 0-2 /HPF
[2023-06-26 13:59] LABS: ALKALINE PHOSPHATASE 89 U/L (40-136); BILIRUBIN,TOTAL 0.4 MG/DL (0.1-1.0); BUN/CREATININE RATIO 19; CALCIUM 9.3 MG/DL (8.5-10.1); CARBON DIOXIDE 25 MMOL/L (21-32); CHLORIDE 95 MMOL/L (98-107); CREATININE SERUM 1.12 MG/DL (0.60-1.30); GFR ESTIMATED 48; GLUCOSE 120 MG/DL (70-105); POTASSIUM 3.8 MMOL/L (3.6-5.0); SODIUM 135 MMOL/L (135-145)
[2023-06-26 14:00] LABS: ALANINE AMINOTRANSFERASE 18 U/L (0-55); ALBUMIN 4.3 GM/DL (3.2-4.5); TOTAL PROTEIN 7.4 GM/DL (6.4-8.2)
--- NOTE | 2023-06-26 14:02 | Diagnostic Imaging Report ---
PROCEDURE: CT head without contrast. TECHNIQUE: Multiple contiguous axial images were obtained through the brain without the use of intravenous contrast. Auto Exposure Controls were utilized during the CT exam to meet ALARA standards for radiation dose reduction. INDICATION: Near syncope. COMPARISON: Study compared with an exam of 12/05/2022. FINDINGS: Cerebral cortical atrophy, stable chronic finding. No intracerebral hemorrhage, hydrocephalus, edema, mass, mass effect, nor evidence for elevated intracerebral pressures. Some chronic dural and pineal calcifications are stable. No orbital, calvarial, or sinus pathology. IMPRESSION: Stable chronic senescent findings. No acute-appearing abnormality. Dictated by: Dictated on workstation # [id number]
== END 2023-06-26 14:20 | disposition home or self-care (01) ==
LOC: ER FS 13:21 → EDUNIT# 13:21 → ER FS 14:20
DX: R55 Syncope and collapse (principal)
CPT/HCPCS: 36415; 70450; 80053; 81000; 84484; 85025; 93005